=== PATIENT | male | born 1930 | race Caucasian/White ===

== ENCOUNTER 2016-07-04 10:08 | Inpatient (IN) | payer MEDICARE ==
[~2016-07-04] VITALS: Ht 167.6 cm; Wt 51.1 kg
[2016-07-04] VITALS (12 sets, daily range): BP systolic 93–146; BP diastolic 59–76; PULSE 61–95; RESP 18–24; TEMP 96–97.7; O2SAT 83–97
[~2016-07-04 10:08] MED LIST: AMLO10TA2 PO; CALC500C16 PO; CEFT500T3 PO; FLUT1INH INH; LEVO75TA3 PO; LOVA40TA PO; MEGE40SU PO; SPIRCAP INH; ZITH500T PO
[2016-07-04 10:33] LABS: AUTOMATED NEUTROPHIL # 9.6 TH/MM3 (1.8-7.7); BASOPHIL # 0.1 TH/MM3 (0-0.2); BASOPHIL % 1.1 % (0.0-2.0); EOSINOPHIL # 0.3 TH/MM3 (0-0.4); EOSINOPHIL % 2.2 % (0.0-4.0); HEMATOCRIT 45.1 % (39.0-51.0); LYMPH % 14.9 % (9.0-44.0); LYMPHOCYTE # 1.8 TH/MM3 (1.0-4.8); MEAN CELL VOLUME 83.7 FL (80.0-100.0); MEAN CORPUSCULAR HEMOGLOBIN 26.9 PG (27.0-34.0); MEAN CORPUSCULAR HGB CONC 32.1 % (32.0-36.0); MONO % 5.2 % (0.0-8.0); NEUT % 76.6 % (16.0-70.0); PLATELET COUNT 448 TH/MM3 (150-450); RED BLOOD COUNT 5.39 MIL/MM3 (4.50-5.90); RED CELL DISTRIBUTION WIDTH 18.1 % (11.6-17.2); WHITE BLOOD COUNT 12.4 TH/MM3 (4.0-11.0)
[2016-07-04] MEDS: RESP: ALBUTEROL 2.5 MG/IPRATROPIUM 0.5 MG NEB (SCH) INH ×2 (10:33→10:34)
[2016-07-04 10:41] LABS: HEMO FLAGS AUTO DIFF
[2016-07-04 10:42] LABS: CHLORIDE 108 MEQ/L (98-107); POTASSIUM 4.4 MEQ/L (3.5-5.1); SODIUM (NA) 142 MEQ/L (136-145)
--- NOTE | 2016-07-04 10:42 | PD ---
HPI Chief Complaint: Respiratory Symptoms Time Seen by Provider: 10:16 Travel History International Travel<30 days: No Contact w/Intl Traveler<30days: No Traveled to known affect area: No History of Present Illness HPI 85-year-old male with history of COPD, lung cancer, currently being treated with radiation, here for evaluation of shortness of breath and cough. Patient is on 5 L oxygen by nasal cannula at home. He reports that his symptoms of a progressively worsening over the last 2 weeks. Symptoms significantly worsen this morning. The patient is unable to exert himself because of shortness of breath. Shortness breath is also at rest. He is having some chest pain with coughing. Chart review shows that the patient had a pneumothorax in 2012. No fevers or chills. His chute puller is Dr. Bell. ON LICENSE OF [facility] Past Medical History Anxiety: No Depression: Yes Cancer: Yes (PROSTATE, LUNG) Cardiovascular Problems: Yes High Cholesterol: Yes Congestive Heart Failure: No COPD: Yes Coronary Artery Disease: No Diabetes: No Diminished Hearing: Yes Endocrine: Yes Gastrointestinal Disorders: No Genitourinary: No Hepatitis: No Hiatal Hernia: No Hypertension: Yes Immune Disorder: No Implanted Vascular Access Dvce: No Medical other: No Musculoskeletal: No Neurologic: No Psychiatric: Yes Reproductive: No Respiratory: Yes (COPD; LUNG CA) Radiation Therapy: Yes Sleep Apnea: No Thyroid Disease: Yes Tetanus Vaccination: Unknown Past Surgical History Abdominal Surgery: Yes (HERNIA) Cardiac Surgery: No Ear Surgery: No Endocrine Surgery: No Eye Surgery: No Genitourinary Surgery: No Gynecologic Surgery: No Neurologic Surgery: No Oral Surgery: No Thoracic Surgery: No Other Surgery: Yes Social History Alcohol Use: No Tobacco Use: No (FORMER) Substance Use: No Allergies-Medications (Allergen,Severity, Reaction): Coded Allergies: No Known Allergies (Unverified , 07/04/16) Reported Meds & Prescriptions Reported Meds & Active Scripts Active Calcium Carbonate (Antacid) 500 Mg Chew 1,000 Mg PO Q4H PRN Reported Symbicort Inh (Budesonide/Formoterol Fumarate) 160-4.5 Mcg/Act Aero 2 Puff INH Q12HR Spiriva Handihaler (Tiotropium Inh) 18 Mcg Cap 18 Mcg INH DAILY 1 capsule = 18 mcg Breo Ellipta Inh (Fluticasone/Vilanterol) 100-25 Mcg/Act Inh 1 Puff INH DAILY Use daily at the same time. Levothyroxine (Levothyroxine Sodium) 75 Mcg Tab 75 Mcg PO DAILY Lovastatin 40 Mg Tab 40 Mg PO HS Amlodipine (Amlodipine Besylate) 10 Mg Tab 10 Mg PO DAILY Review of Systems Except as stated in HPI: all other systems reviewed are Neg Physical Exam Narrative GENERAL: Well-developed, cachectic, comfortable, speaking full sentences, no acute distress. SKIN: Warm and dry. HEAD: Atraumatic. Normocephalic. EYES: Pupils equal and round. No scleral icterus. No injection or drainage. ENT: Mucous membranes pink and moist. NECK: Trachea midline. No JVD. No nuchal rigidity. CARDIOVASCULAR: Regular rate and rhythm. RESPIRATORY: No accessory muscle use. Diminished breath sounds bilaterally with coarse breath sounds bilaterally. Mild end expiratory wheezes bilaterally. GASTROINTESTINAL: Abdomen soft, non-tender, nondistended. MUSCULOSKELETAL: No obvious deformities. No clubbing. No cyanosis. No edema. NEUROLOGICAL: Awake and alert. No obvious cranial nerve deficits. Motor grossly within normal limits. Normal speech. PSYCHIATRIC: Appropriate mood and affect; insight and judgment normal. Data Data Last Documented VS Vital Signs Date Time Temp Pulse Resp B/P Pulse Ox O2 Delivery O2 Flow Rate FiO2 07/04/16 12:29 92 18 125/60 88 Nasal Cannula 5 Orders Complete Blood Count With Diff (07/04/16 10:18) Comprehensive Metabolic Panel (07/04/16 10:18) B-Type Natriuretic Peptide (07/04/16 10:18) D-Dimer (07/04/16 10:18) Act Partial Throm Time (Ptt) (07/04/16 10:18) Prothrombin Time / Inr (Pt) (07/04/16 10:18) Ckmb (Isoenzyme) Profile (07/04/16 10:18) Troponin I (07/04/16 10:18) Influenzae A/B Antigen (07/04/16 10:18) Blood Culture (07/04/16 10:18) Iv Access Insert/Monitor (07/04/16 10:18) Electrocardiogram (07/04/16 10:18) Ecg Monitoring (07/04/16 10:18) Oximetry (07/04/16 10:18) Oxygen Administration (07/04/16 10:18) Chest, Single Ap (07/04/16 10:18) Sodium Chloride 0.9% Flush (Ns Flush) (07/04/16 10:30) Albuterol-Ipratropium Neb (Duoneb Neb) (07/04/16 10:30) Lactic Acid (07/04/16 10:39) Ct Pulmonary Angiogram (07/04/16 11:13) Ceftriaxone Inj (Rocephin Inj) (07/04/16 11:15) Azithromycin Inj (Zithromax Inj) (07/04/16 11:15) Iohexol 350 Inj (Omnipaque 350 Inj) (07/04/16 12:17) Labs Laboratory Tests Test 07/04/16 07/04/16 10:20 10:25 White Blood Count 12.4 TH/MM3 Red Blood Count 5.39 MIL/MM3 Hemoglobin 14.5 GM/DL Hematocrit 45.1 % Mean Corpuscular Volume 83.7 FL Mean Corpuscular Hemoglobin 26.9 PG Mean Corpuscular Hemoglobin 32.1 % Concent Red Cell Distribution Width 18.1 % Platelet Count 448 TH/MM3 Mean Platelet Volume 7.8 FL Neutrophils (%) (Auto) 76.6 % Lymphocytes (%) (Auto) 14.9 % Monocytes (%) (Auto) 5.2 % Eosinophils (%) (Auto) 2.2 % Basophils (%) (Auto) 1.1 % Neutrophils # (Auto) 9.6 TH/MM3 Lymphocytes # (Auto) 1.8 TH/MM3 Monocytes # (Auto) 0.6 TH/MM3 Eosinophils # (Auto) 0.3 TH/MM3 Basophils # (Auto) 0.1 TH/MM3 CBC Comment AUTO DIFF Differential Comment AUTO DIFF CONFIRMED Prothrombin Time 10.7 SEC Prothromb Time International 1.0 RATIO Ratio Activated Partial 27.9 SEC Thromboplast Time D-Dimer Quantitative (PE/DVT) 4.29 MG/L FEU Sodium Level 142 MEQ/L Potassium Level 4.4 MEQ/L Chloride Level 108 MEQ/L Carbon Dioxide Level 24.1 MEQ/L Anion Gap 10 MEQ/L Blood Urea Nitrogen 25 MG/DL Creatinine 1.40 MG/DL Estimat Glomerular Filtration 48 ML/MIN Rate Random Glucose 89 MG/DL Calcium Level 8.6 MG/DL Total Bilirubin 0.5 MG/DL Aspartate Amino Transf 12 U/L (AST/SGOT) Alanine Aminotransferase 15 U/L (ALT/SGPT) Alkaline Phosphatase 97 U/L Total Creatine Kinase 32 U/L Troponin I LESS THAN 0.02 NG/ML B-Type Natriuretic Peptide 105 PG/ML Total Protein 7.9 GM/DL Albumin 3.2 GM/DL Lactic Acid Level 1.5 mmol/L [facility] Medical Decision Making Medical Screen Exam Complete: Yes Emergency Medical Condition: Yes Medical Record Reviewed: Yes Interpretation(s) EKG: Sinus, rate 87, left axis deviation, normal intervals, Q waves in septal leads, no acute ischemic abnormality. Differential Diagnosis COPD exacerbation, pneumonia, pneumothorax, PE, ACS, pulmonary edema, pleural effusion Narrative Course Initial vital signs showed a pulse ox of 82% on 5 L nasal cannula. Heart rate 90, blood pressure 122/66. CBC shows WBC 12.4, hemoglobin 14.5, hematocrit 45, platelets 448. CMP is markable for BUN 25, creatinine 1.4, GFR 48, otherwise unremarkable. BNP is 105. Cardiac enzymes are negative. Lactic acid is 1.5. D-dimer is 4.29 Chest x-ray: CONCLUSION: 1. Stable chest x-ray with small right pleural effusion with associated atelectasis or consolidation. 2. Stable patchy airspace consolidation in the left mid and lower lung zone. The patient was given antibiotics for pneumonia after chest x-ray reading. CT pulmonary angiogram ordered to further evaluate the lungs and to rule out PE. CT pulmonary angiogram: CONCLUSION: 1. No PE is identified. 2. There are findings diagnostic of aspiration with fluid in the right lower lobe bronchus and right lower lobe segmental bronchi with right lower lobe airspace consolidation in that distribution. 3. Small bilateral pleural effusions, right larger than left. 4. There is an 11 mm left lower lobe pulmonary nodule and there are nodular opacities in the left midlung adjacent to the major fissure. I do not have any prior CT that visualizes this area. Suggest correlation with prior imaging studies that could confirm longer-term stability or assess for change. If none are available I would suggest followup chest CT in 3 months once the acute process resolves. The patient was also given a dose of clindamycin after CT pulmonary angiogram results reported. The patient was made aware of all findings. He was given 3 DuoNeb treatments. He is currently sitting up, O2 saturation 92% on 5 L nasal cannula, no apparent respiratory distress, speaking full sentences. He will be admitted for further treatment and evaluation of aspiration pneumonia, hypoxia, dyspnea. Case discussed with [facility] hospitalist Dr. Greenwood who will admit the patient to his service. Diagnosis Primary Impression: Aspiration pneumonia Qualified Code: J69.0 - Aspiration pneumonia of right lower lobe, unspecified aspiration pneumonia type Additional Impressions: Hypoxia Dyspnea Qualified Code: R06.09 - Dyspnea on exertion Admitting Information Admitting Physician Requests: Admit Ed Abernathy MD Jul 04, 2016 10:42
[2016-07-04 10:45] LABS: ANION GAP 10 MEQ/L (5-15); BICARBONATE 24.1 MEQ/L (21.0-32.0); BLOOD UREA NITROGEN 25 MG/DL (7-18)
[2016-07-04 10:49] LABS: ALT (GPT) 15 U/L (12-78); AST (GOT) 12 U/L (15-37); GLOMERULAR FILTRATION RATE 48 ML/MIN (>89)
[2016-07-04 10:50] LABS: TOTAL BILIRUBIN ADULT 0.5 MG/DL (0.2-1.0)
[2016-07-04 10:51] LABS: ALKALINE PHOSPHATASE 97 U/L (45-117)
[2016-07-04 10:52] LABS: CREATINE KINASE 32 U/L (39-308)
[2016-07-04] MEDS ORDERED: SYMB160A INH (10:55)
--- NOTE | 2016-07-04 10:59 | RADHPO ---
EXAM DATE/TIME: 07/04/2016 10:32 [facility] COMPARISON: CHEST SINGLE AP, April 23, 2016, 5:48. INDICATIONS : Short of breath and difficulty breathing for 2 weeks. MEDICAL HISTORY : Carcinoma, lung. Chronic obstructive pulmonary disease SURGICAL HISTORY : None. ENCOUNTER: Initial ACUITY: 2 weeks PAIN SCORE: 2/10 LOCATION: Bilateral chest FINDINGS: 2 AP views of the chest demonstrate a normal-sized cardiac silhouette with calcification of the aorta . Lungs are hyperexpanded. There is a right basilar pleural-parenchymal opacity and patchy airspace c onsolidation in the left mid and lower lung zone. No pneumothorax is visualized. Bones and soft tissu es demonstrate no acute finding. CONCLUSION: 1. Stable chest x-ray with small right pleural effusion with associated atelectasis or consolidation. 2. Stable patchy airspace consolidation in the left mid and lower lung zone. Charly Knox MD on July 04, 2016 at 10:56 Board Certified Radiologist. This report was verified electronically.
[2016-07-04 11:01] LABS: APTT (PATIENT) 27.9 SEC (24.3-30.1); PROTHROMBIN TIME - PATIENT 10.7 SEC (9.8-11.6)
[2016-07-04] MEDS ORDERED: cefTRIAXone INJ 1,000 MG in SODIUM CHLORIDE 0.9% INJ 100 ML IV ONE (11:15)
[2016-07-04] MEDS ORDERED: AZITHROMYCIN INJ 500 MG in SODIUM CHLOR 0.9% 250 ML INJ 250 ML IV ONE (11:15)
[2016-07-04 11:39] LABS: SCAN/DIFF AUTO DIFF CONFIRMED
[2016-07-04] MEDS ORDERED: IOHEXOL 350 MG/ML 10 ML VIAL (for RAD DIAG) IV ONE (12:17)
--- NOTE | 2016-07-04 12:47 | RADHPO ---
EXAM DATE/TIME: 07/04/2016 12:04 [facility] COMPARISON: CT NEEDLE BIOPSY LUNG, LEFT, June 15, 2012, 9:40. INDICATIONS : Short of breath. Hypoxic. Cough. IV CONTRAST: 75 cc Omnipaque 350 (iohexol) IV RADIATION DOSE: 7.86 CTDIvol (mGy) MEDICAL HISTORY : Carcinoma, lung. Carcinoma, prostate. Chronic obstructive pulmonary disease.Hypertension. SURGICAL HISTORY : None. ENCOUNTER: Initial ACUITY: 1 day PAIN SCALE: 6/10 LOCATION: Bilateral chest TECHNIQUE: Volumetric scanning of the chest was performed using a pulmonary embolism protocol MIP images were re constructed. Using automated exposure control and adjustment of the mA and/or kV according to patien t size, radiation dose was kept as low as reasonably achievable to obtain optimal diagnostic quality images. FINDINGS: PULMONARY ARTERIES: No filling defects are seen in the pulmonary arteries through the segmental level. LUNGS: There is severe centrilobular and paraseptal emphysema. There is consolidation in the medial aspect o f the left upper lobe that corresponds with the prior biopsy-proven malignancy. It is smaller than wh at was present on the 2013 examination. There is airspace consolidation in the right lower lobe with fluid material within the right lower lobe bronchus and segmental bronchi. Small bilateral pleural ef fusions are present, right slightly larger than left. In the left lower lobe there is an ovoid nodule measuring 11 mm (image 65). In the left midlung zone and both the upper and lower lobe adjacent to t he fissure there are nodular opacities measuring approximately 12 mm each. PLEURAE: There are small bilateral pleural effusions, right slightly larger than left. There is a single calci fied pleural plaque on the left in the anterior mid hemithorax. MEDIASTINUM: The heart and great vessels demonstrate no acute finding. There is coronary artery calcification and severe atherosclerotic disease of aorta. 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 No lymphadenopathy is visualized. MUSCULOSKELETAL: There are degenerative changes of the thoracic spine. MISCELLANEOUS: The visualized upper abdominal organs demonstrate no acute abnormality. CONCLUSION: 1. No PE is identified. 2. There are findings diagnostic of aspiration with fluid in the right lower lobe bronchus and right lower lobe segmental bronchi with right lower lobe airspace consolidation in that distribution. 3. Small bilateral pleural effusions, right larger than left. 4. There is an 11 mm left lower lobe pulmonary nodule and there are nodular opacities in the left mid lung adjacent to the major fissure. I do not have any prior CT that visualizes this area. Suggest cor relation with prior imaging studies that could confirm longer-term stability or assess for change. I f none are available I would suggest followup chest CT in 3 months once the acute process resolves. Charly Knox MD on July 04, 2016 at 12:38 Board Certified Radiologist. This report was verified electronically.
[2016-07-04] MEDS ORDERED: RESP: ALBUTEROL 2.5 MG/IPRATROPIUM 0.5 MG NEB (SCH) NEB (16:00)
[2016-07-04] MEDS ORDERED: LEVOFLOXACIN 500 MG PREMIX INJ 100 ML IV ONE (17:00)
[2016-07-04] MEDS: CLINDAMYCIN INJ 600 MG in SODIUM CHLORIDE 0.9% INJ 100 ML IV SCH (17:38)
[2016-07-04] MEDS: methylPREDNISolone SOD SUCC 125 MG/2 ML VIAL IV PUSH SCH (17:39)
[2016-07-04 18:35] LABS: BLOOD GAS BASE EXCESS -2.6 mmol/L (-2-2); BLOOD GAS CARBOXYHEMOGLOBIN 2.5 % (0-4); BLOOD GAS HCO3 21 mmol/L (22-26); BLOOD GAS METHEMOGLOBIN 0.9 % (0-2); BLOOD GAS O2 HGB SATURATION 80 % (90-100); BLOOD GAS OXYGEN CONTENT 14.4 Vol % (12.0-20.0); BLOOD GAS PCO2 31 mmHG (38-42); BLOOD GAS PO2 49 mmHG (61-120); BLOOD GAS TOTAL HGB 12.8 G/DL (12.0-16.0); CRITICAL VALUE YES; DRAW SITE RT RADIAL; LITER FLOW 6 L/M; NUMBER OF ARTERIAL PUNCTURES 1; OXYGEN DEVICE NASAL CANNULA; STAT NO; TEMP CORR TO 98.6; ULNAR PULSE PRESENT
[2016-07-04] MEDS: FLUTICASONE 100 MCG/VILANTEROL 25 MCG INHALER INH SCH (19:15)
[2016-07-04] MEDS: RESP: ALBUTEROL 2.5 MG/IPRATROPIUM 0.5 MG NEB (SCH) NEB (19:30)
[2016-07-04] MEDS ORDERED: BUDESONIDE-FORMOTEROL 160/4.5 MCG INHALER INH SCH (21:00)
[2016-07-04] MEDS: HEPARIN SODIUM - SQ 10,000 UNITS/ML VIAL SQ SCH (21:26)
[2016-07-04] MEDS: PRAVASTATIN SOD 40 MG TAB PO SCH (21:28)
--- NOTE | 2016-07-04 23:29 | MH ---
cc: DENNIS MALIN MD DATE OF ADMISSION 07/04/2016 CHIEF COMPLAINT Shortness of breath HISTORY OF PRESENT ILLNESS This is a 85-year-old male with past medical-surgical history significant for depression, prostate cancer, hyperlipidemia, history of chronic obstructive pulmonary disease, lung cancer, hypertension, history of hernia who came to the ER at [facility], has history of lung cancer currently being treated with radiation, here for evaluation of shortness of breath and cough. The patient is on 5 liters oxygen by nasal cannula at home. He is stating that his symptoms are progressively getting worse over the last one week, symptom slightly worsened this morning and he decided to come to the [facility]. He is unable to exert himself because of the shortness of breath and he is also feeling shortness of breath even at rest. He has a history of a pneumothorax in 2012. Other than that nothing significant. PAST MEDICAL HISTORY/PAST SURGICAL HISTORY As dictated above. SOCIAL HISTORY He is ex-smoker, denies any alcohol or drug abuse. Lives at home. 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 FAMILY HISTORY Nothing significant. ALLERGIES NO KNOWN DRUG ALLERGIES. MEDICATIONS 1. Calcium carbonate 1,000 mg every 4-hour. 2. Symbicort inhaler 160/4.5 mcg 2 puffs inhalation q.12 h 3. Spiriva HandiHaler 18 mcg inhalation daily. 4. ____ 100/25 1 puff ablation daily. 5. Levothyroxine 75 mcg by mouth daily 6. Lovastatin 40 mg p.o. daily 7. Amlodipine 10 mg p.o. daily. REVIEW OF SYSTEMS Positive for cough, congestion, shortness of breath and feeling weak and tired and exhausted. All other review of systems are negative. PHYSICAL EXAMINATION GENERAL: This is an 85-year male laying on the bed not in acute distress. VITAL SIGNS: Temperature 97.4, heart rate 63, respirations 20, blood pressure 146/72, O2 saturation 96% at 5 liters nasal cannula. HEENT: Normocephalic, atraumatic. EOMI. Pupils are equal, round, reactive to light. Oral mucosa moist. NECK: Supple. No visible thyromegaly. Trachea central. CARDIOVASCULAR: Regular rate and rhythm. LUNGS: Bilateral crackles and wheezing, decreased air entry bilaterally. ABDOMEN: Soft, nontender. Bowel sounds audible. EXTREMITIES: No cyanosis or clubbing. Full range of motion of all extremities. NEUROLOGIC: Awake, alert, oriented x4. No focal deficit. SKIN: Warm and dry. PSYCHIATRIC: The patient is cooperative. Mood and affect are normal. LABORATORY DATA CBC showed WBC count 12.4 high, hemoglobin/hematocrit normal. MCH is 26.9 low, RDW 18.1 high, neutrophils 76.6 high. BMP totally unremarkable except for chloride 108 high, BUN 25 high, creatinine 1.40 high. Glucose 89. LFTs are normal. Total creatine kinase 32. Troponin I is less than 0.02, BNP 105 high, albumin 3.2 low. PT 10.7, INR 1.0, APTT 27.9, D-dimer is 4.29, ABG done showed pH of 7.45 with pCO2 31 with pO2 49, bicarb 21 low. Blood cultures x2 done negative so far. Influenza A and B negative. IMAGING STUDIES Chest x-ray done shows stable chest x-ray with small right pleural effusion with associated atelectasis or consolidation, stable patchy airspace consolidation in the left mid and lower lung zone. CT chest was done shows no PE is identified. There is a finding diagnostic Of aspiration with fluid in the right lower lobe bronchus and right lower lobe segmental bronchi with right lower lobe air space consolidation in that distribution small bilateral pleural effusion, right larger than left. There is 11 mm left lower lobe pulmonary nodule and there is a nodular opacity in the left mid lung adjacent to the major fissure. We do not have a prior CT that ___ this area. Suggest correlation with prior imaging studies that could confirm long-term stability or assess changes. If none are available, radiology should suggest follow up CT chest in 3 months once acute process is resolved. ASSESSMENT AND PLAN 1. This is an 85-year-old male who came to the ER diagnosed with well known shortness of breath secondary to pneumonia/COPD exacerbation. The patient is on Levaquin 500 mg IV daily and also DuoNeb nebulization and Solu-Medrol 60 mg IV q. 12-hour and also clindamycin IV q. 8-hour. 2. Most likely aspiration pneumonia. The patient is on clindamycin and Levaquin. Pulmonology on the case. Further recommendation per pulmonary. 3. COPD exacerbation. The patient is on DuoNeb nebulization, Solu-Medrol and antibiotics. Continue that. 4. History of hyperlipidemia. Continue pravastatin 40 mg at bedtime. 5. History of hypothyroidism, continue levothyroxine 75 mcg p.o. daily. 6. History of hypertension. Continue with blood pressure medicine. We will monitor blood pressure. 7. DVT prophylaxis. The patient is on heparin 5000 units subcutaneous q.12 h 8. DVT prophylaxis, Protonix 40 mA daily. The patient also on Potassium carbonate. 9. Renal insufficiency. We will monitor BUN and creatinine. 10. Leukocytosis secondary to pneumonia. We are going to manage the patient on daily basis and make recommendation on daily basis. Dennis Malin MD EA/ /8:02 PM /11:00 PM
[2016-07-05] VITALS (21 sets, daily range): BP systolic 102–156; BP diastolic 9–73; PULSE 84–108; RESP 18–36; TEMP 97.6–98.4; O2SAT 82–100
[2016-07-05] MEDS: CLINDAMYCIN INJ 600 MG in SODIUM CHLORIDE 0.9% INJ 100 ML IV SCH ×4 (00:23→23:42)
[2016-07-05 05:54] LABS: AUTOMATED NEUTROPHIL # 6.9 TH/MM3 (1.8-7.7); BASOPHIL % 0.5 % (0.0-2.0); EOSINOPHIL # 0.3 TH/MM3 (0-0.4); EOSINOPHIL % 2.8 % (0.0-4.0); HEMO FLAGS DIFF FINAL; LYMPH % 15.8 % (9.0-44.0); LYMPHOCYTE # 1.5 TH/MM3 (1.0-4.8); MEAN CELL VOLUME 82.7 FL (80.0-100.0); MEAN CORPUSCULAR HEMOGLOBIN 27.3 PG (27.0-34.0); MONO % 7.5 % (0.0-8.0); NEUT % 73.4 % (16.0-70.0); PLATELET COUNT 346 TH/MM3 (150-450); RED BLOOD COUNT 4.36 MIL/MM3 (4.50-5.90); RED CELL DISTRIBUTION WIDTH 17.7 % (11.6-17.2); WHITE BLOOD COUNT 9.4 TH/MM3 (4.0-11.0)
[2016-07-05] MEDS: methylPREDNISolone SOD SUCC 125 MG/2 ML VIAL IV PUSH SCH ×2 (06:02→18:12)
[2016-07-05] MEDS: LEVOTHYROXINE SODIUM 75 MCG TAB PO SCH (06:02)
[2016-07-05 06:03] LABS: CHLORIDE 110 MEQ/L (98-107); POTASSIUM 4.4 MEQ/L (3.5-5.1); SODIUM (NA) 144 MEQ/L (136-145)
[2016-07-05 06:09] LABS: ANION GAP 9 MEQ/L (5-15); BICARBONATE 25.3 MEQ/L (21.0-32.0)
[2016-07-05 06:10] LABS: BLOOD UREA NITROGEN 30 MG/DL (7-18)
[2016-07-05 06:12] LABS: ALT (GPT) 11 U/L (12-78); AST (GOT) 12 U/L (15-37); GLOMERULAR FILTRATION RATE 45 ML/MIN (>89)
[2016-07-05 06:14] LABS: TOTAL BILIRUBIN ADULT 0.3 MG/DL (0.2-1.0)
[2016-07-05 06:15] LABS: ALKALINE PHOSPHATASE 76 U/L (45-117)
--- NOTE | 2016-07-05 06:25 | MB ---
cc: Alexia ROJAS M.D. DATE OF CONSULTATION 07/04/2016 HISTORY Mr. Ro is an 85-year-old white male with a history of severe COPD, smoked until 2009 after 50 pack-years. In 2012 he developed a lung cancer on the left, was not a surgical candidate so had radiation therapy and to date followup with Dr. Pablo. There has been no evidence of recurrence. He was hospitalized here about two months ago with pneumonia and really never recovered he said. He is chronically short of breath. He says his inhalers have been making him worse and recently a nebulizer was ordered as an alternative. He uses four to five liters of oxygen at home continuously but is on no steroid dose. He uses Breo and Spiriva but again he says he feels that those are making him worse. He came in today because he was exhausted and more short of breath. He has had no chest pain or hemoptysis, no purulent sputum but he coughs continuously. The sputum he produces tends to be clear. CT scan was done which reveals no evidence of recurrent malignancy. No thromboembolic disease, but he does have an extensive right lower lobe infiltrate and a small pleural effusion. He has had infiltrates at the right base before and aspiration is suspected. PAST MEDICAL HISTORY Other than that noted above, he has had - 1. Carotid endarterectomy. 2. Hypertension. 3. He has had cancer of the prostate treated in the past. 4. He is hypothyroid. No prior history of myocardial infarction or stroke. He is not diabetic. ALLERGIES None known. SOCIAL HISTORY Rarely drinks alcohol. Smoking as noted, at least 50 pack-years; quit about seven years ago. Originally from [place]. 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 FAMILY HISTORY Parents both in their 80s of natural causes. He has two children in good health. , living with his . REVIEW OF SYSTEMS Other than that noted above, no anginal chest pain. No chronic edema. No orthopnea or PND. No lightheadedness. Not aware of fever. Not complaining of chronic reflux problems or difficulty swallowing that would suggest aspiration. PHYSICAL EXAMINATION GENERAL: An elderly white male, comfortable at rest. VITAL SIGNS: Pulse is 90, respirations 18, sat on 5 liters is 88-92%, his blood pressure is 150/60. No temperatures is yet recorded. HEAD AND NECK: Sclerae anicteric. Neck veins are flat. Mucous membranes are moist. CHEST: Mildly congested, right base greater than left. Prolonged expiration but no audible wheezing. CARDIOVASCULAR: Regular rhythm. No harsh murmur. No audible S3. EXTREMITIES: No peripheral edema or cyanosis. LABORATORY DATA White count is 12,000, hemoglobin is 14. BUN is 25 with creatinine of 1.4. BNP is 100. PT/INR is normal. DISCUSSION Mr. Ro has severe COPD based on his history and a CT scan. He also has a right lower lobe infiltrate fairly extensive posterior basilar and it certainly could be aspiration. Since the inhaler seemed to be making him worse, we will use aerosolized bronchodilators which may be more helpful. He will need a course of antibiotics for probable aspiration, try to collect a sputum for culture, IV corticosteroids as well and try to ambulate him as it sounds like he has a fairly sedentary lifestyle. He also has small bilateral pleural effusions. I will do an echo to be sure he does not have any LV dysfunction. Further diagnostic and/or therapeutic intervention will depend on his ongoing clinical course and response to therapy. Thank you for asking me to see him with you in consultation. R. MD YVONNE Schroeder/RADAMES /5:40 PM /6:14 AM
[2016-07-05] MEDS: RESP: ALBUTEROL 2.5 MG/IPRATROPIUM 0.5 MG NEB (SCH) NEB ×3 (07:27→19:25)
--- NOTE | 2016-07-05 08:06 | HHI.PR ---
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 Review of Systems Constitutional Constitutional: Fatigue, Weakness Pulmonary Respiratory: Coughing, Shortness of Breath, Wheezing Vitals/Results Intake & Output 07/04/16 07/04/16 07/05/16 15:00 23:00 07:00 Intake Total 350 ml 200 ml 300 ml Output Total 750 ml Balance 350 ml 200 ml -450 ml Intake Oral 200 ml IV Total 350 ml 200 ml 100 ml Output Urine Total 750 ml # Voids 3 Vital Signs Vital Signs Date Time Temp Pulse Resp B/P Pulse Ox O2 Delivery O2 Flow Rate FiO2 07/05/16 07:31 94 Simple Mask 7.00 07/05/16 04:00 98.4 86 20 151/65 92 07/05/16 00:00 98.4 89 20 120/60 92 07/04/16 23:05 93 Simple Mask 7.00 07/04/16 22:50 95 Simple Mask 10.00 07/04/16 22:00 97.7 92 21 115/72 85 07/04/16 20:30 96.0 95 21 93/63 91 07/04/16 19:30 88 Nasal Cannula 6.00 07/04/16 16:00 97.4 63 20 146/72 96 07/04/16 14:01 90 18 115/59 88 Nasal Cannula 5 07/04/16 12:29 92 18 125/60 88 Nasal Cannula 5 07/04/16 12:00 97.2 61 20 139/76 97 07/04/16 11:31 90 18 122/66 88 Nasal Cannula 5 07/04/16 10:56 91 Nasal Cannula 5.00 07/04/16 10:27 24 87 Nasal Cannula 5 07/04/16 10:22 24 83 Nasal Cannula 5 07/04/16 10:21 82 Nasal Cannula 5 CBC/BMP: 07/05/16 0450 07/05/16 0450 Lab Results Laboratory Tests Test 07/04/16 07/04/16 07/04/16 07/05/16 10:20 10:25 18:23 04:50 White Blood Count 12.4 TH/MM3 9.4 TH/MM3 Red Blood Count 5.39 MIL/MM3 4.36 MIL/MM3 Hemoglobin 14.5 GM/DL 11.9 GM/DL Hematocrit 45.1 % 36.0 % Mean Corpuscular Volume 83.7 FL 82.7 FL Mean Corpuscular Hemoglobin 26.9 PG 27.3 PG Mean Corpuscular Hemoglobin 32.1 % 33.0 % Concent Red Cell Distribution Width 18.1 % 17.7 % Platelet Count 448 TH/MM3 346 TH/MM3 Mean Platelet Volume 7.8 FL 7.9 FL Neutrophils (%) (Auto) 76.6 % 73.4 % Lymphocytes (%) (Auto) 14.9 % 15.8 % Monocytes (%) (Auto) 5.2 % 7.5 % Eosinophils (%) (Auto) 2.2 % 2.8 % Basophils (%) (Auto) 1.1 % 0.5 % Neutrophils # (Auto) 9.6 TH/MM3 6.9 TH/MM3 Lymphocytes # (Auto) 1.8 TH/MM3 1.5 TH/MM3 Monocytes # (Auto) 0.6 TH/MM3 0.7 TH/MM3 Eosinophils # (Auto) 0.3 TH/MM3 0.3 TH/MM3 Basophils # (Auto) 0.1 TH/MM3 0.0 TH/MM3 CBC Comment AUTO DIFF DIFF FINAL Differential Comment AUTO DIFF CONFIRMED Prothrombin Time 10.7 SEC Prothromb Time International 1.0 RATIO Ratio Activated Partial 27.9 SEC Thromboplast Time D-Dimer Quantitative (PE/DVT) 4.29 MG/L FEU Sodium Level 142 MEQ/L 144 MEQ/L Potassium Level 4.4 MEQ/L 4.4 MEQ/L Chloride Level 108 MEQ/L 110 MEQ/L Carbon Dioxide Level 24.1 MEQ/L 25.3 MEQ/L Anion Gap 10 MEQ/L 9 MEQ/L Blood Urea Nitrogen 25 MG/DL 30 MG/DL Creatinine 1.40 MG/DL 1.50 MG/DL Estimat Glomerular Filtration 48 ML/MIN 45 ML/MIN Rate Random Glucose 89 MG/DL 76 MG/DL Calcium Level 8.6 MG/DL 8.2 MG/DL Total Bilirubin 0.5 MG/DL 0.3 MG/DL Aspartate Amino Transf 12 U/L 12 U/L (AST/SGOT) Alanine Aminotransferase 15 U/L 11 U/L (ALT/SGPT) Alkaline Phosphatase 97 U/L 76 U/L Total Creatine Kinase 32 U/L Troponin I LESS THAN 0.02 NG/ML B-Type Natriuretic Peptide 105 PG/ML Total Protein 7.9 GM/DL 6.6 GM/DL Albumin 3.2 GM/DL 2.7 GM/DL Lactic Acid Level 1.5 mmol/L Blood Gas Puncture Site RT RADIAL Blood Gas Patient Temperature 98.6 Blood Gas HCO3 21 mmol/L Blood Gas Base Excess -2.6 mmol/L Blood Gas Oxygen Saturation 80 % Arterial Blood pH 7.45 Arterial Blood Partial 31 mmHG Pressure CO2 Arterial Blood Partial 49 mmHG Pressure O2 Arterial Blood Oxygen Content 14.4 Vol % Arterial Blood 2.5 % Carboxyhemoglobin Arterial Blood Methemoglobin 0.9 % Blood Gas Hemoglobin 12.8 G/DL Oxygen Delivery Device NASAL CANNULA Blood Gas Liter Flow 6 L/M Microbiology Microbiology 07/04/16 Aerobic Blood Culture, Received Pending 07/04/16 Anaerobic Blood Culture, Received Pending 07/04/16 Aerobic Blood Culture, Received Pending 07/04/16 Anaerobic Blood Culture, Received Pending 07/04/16 Influenza Types A,B Antigen (LIBORIO) - Final, Complete NEGATIVE FOR FLU A AND B ANTIGEN.... Physical Exam General General Appearance: Comfortable Eyes Eye Exam: Pupils Equal, Pupils Reactive, Sclera White, Extraocular Movement Intact Throat Throat Exam: Oral Mucosa [place] & Moist, Oral Pharynx Normal Neck Neck Exam: Neck Supple, Trachea Midline Pulmonary Resp Remarks Bilateral wheezing and decreased air entry. Gastrointestinal/Abdomen GI Exam: Soft, Non-Tender, Bowel Sounds Present Musculoskeletal MS Exam: Normal Tone Integumentary Skin Exam: Clear, Warm, Dry, Intact, Normal Turgor Extremeties Extremities Exam: No Edema Neurologic Neuro Exam: Alert, Awake, Oriented, Speech Clear, Moving All Extremities PUD Prophylasis PUD Prophylaxis: Protonix Assessment/Plan Assessment/Plan ASSESSMENT AND PLAN 1. This is an 85-year-old male who came to the ER diagnosed with well known shortness of breath secondary to pneumonia/COPD exacerbation. The patient is on Levaquin 500 mg IV daily and also DuoNeb nebulization and Solu-Medrol 60 mg IV q. 12-hour and also clindamycin IV q. 8-hour. 2. Most likely aspiration pneumonia. The patient is on clindamycin and Levaquin. Pulmonology on the case.. Further recommendation per pulmonary. 3. COPD exacerbation. The patient is on DuoNeb nebulization, Solu-Medrol and antibiotics. Continue that. 4. History of hyperlipidemia. Continue pravastatin 40 mg at bedtime. 5. History of hypothyroidism, continue levothyroxine 75 mcg p.o. daily. 6. History of hypertension. Continue with blood pressure medicine. We will monitor blood pressure. 7. DVT prophylaxis. The patient is on heparin 5000 units subcutaneous q.12 h 8. DVT prophylaxis, Protonix 40 mA daily. The patient also on Potassium carbonate. 9. Renal insufficiency. We will monitor BUN and creatinine. 10. Leukocytosis secondary to pneumonia. We are going to manage the patient on daily basis and make recommendation on daily basis. Discussed Condition with: Patient Dennis Carver MD Jul 05, 2016 08:06
[2016-07-05] MEDS: FLUTICASONE 100 MCG/VILANTEROL 25 MCG INHALER INH SCH (08:30)
[2016-07-05] MEDS: HEPARIN SODIUM - SQ 10,000 UNITS/ML VIAL SQ SCH ×2 (08:31→21:13)
[2016-07-05] MEDS ORDERED: TIOTROPIUM BROMIDE 18 MCG INH INH SCH (09:00)
--- NOTE | 2016-07-05 14:22 | EC ---
Study Study Date:07/05/2016 STUDY CONCLUSIONS SUMMARY - Left ventricle: The cavity size was normal. Wall thickness was normal. Systolic function was normal. The estimated ejection fraction was 65%. Wall motion was normal; there were no regional wall motion abnormalities. - Mitral valve: Mild regurgitation. - Right ventricle: The cavity size was mildly dilated. Wall thickness was normal. - Tricuspid valve: Mild regurgitation. If LV function is below 40, please consider prescribing an ACEI or ARB or document rationale for non-use. PROCEDURE DATA STUDY STATUS: Elective. Procedure: Transthoracic echocardiography. Image quality was good. Scanning was performed from the parasternal, apical, and subcostal acoustic windows. Study completion: The patient tolerated the procedure well. Transthoracic echocardiography. M-mode, complete 2D, complete spectral Doppler, and color Doppler. Patient status: Inpatient. CARDIAC ANATOMY LEFT VENTRICLE: The cavity size was normal. Wall thickness was normal. Systolic function was normal. The estimated ejection fraction was 65%. Wall motion was normal; there were no regional wall motion abnormalities. AORTIC VALVE: Trileaflet; mildly thickened, mildly calcified leaflets. Doppler: Transvalvular velocity was within the normal range. There was no stenosis. No regurgitation. AORTA: Aortic root: The aortic root was normal in size. MITRAL VALVE: Structurally normal valve. Doppler: Transvalvular velocity was within the normal range. There was no evidence for stenosis. Mild regurgitation. LEFT ATRIUM: The atrium was normal in size. RIGHT VENTRICLE: The cavity size was mildly dilated. Wall thickness was normal. PULMONIC VALVE: Doppler: Transvalvular velocity was within the normal range. There was no evidence for stenosis. No regurgitation. TRICUSPID VALVE: Structurally normal valve. Doppler: Transvalvular velocity was within the normal range. Mild regurgitation. PULMONARY ARTERY: The main pulmonary artery was normal-sized. Systolic pressure was within the normal range. RIGHT ATRIUM: The atrium was normal in size. PERICARDIUM: There was no pericardial effusion. SYSTEMIC VEINS: Inferior vena cava: The vessel was normal in size. BASIC MEASUREMENTS ADULT NORMAL Left ventricle LV internal dimension, ED, chordal level, *35.4 mm 43-52 PLAX LV internal dimension, ES, chordal level, 26 mm 23-38 PLAX Fractional shortening, chordal level, PLAX *27 % >29 LV posterior wall thickness, ED 11.3 mm IVS/LVPW ratio, ED 1.04 <1.3 Ventricular septum Septal thickness, ED 11.7 mm Aortic valve Leaflet separation *13 mm 15-26 Right ventricle RV internal dimension, ED, PLAX 32.1 mm 19-38 BASIC MEASUREMENTS ADULT NORMAL Aortic valve Leaflet separation *13 mm 15-26 Aorta Root diameter, ED 35 mm 20-37 Left atrium Anterior-posterior dimension, ES 28 mm 19-40 LA/aortic root ratio 0.8 LEGEND: Mean values are shown as u=mean value. Asterisk (*) bliss values outside specified normal range. Prepared and signed by Elizabeth Zambrano [id number]
[2016-07-05] MEDS: LEVOFLOXACIN/DEXTROSE 250 MG/50 ML IV SCH (16:56)
--- NOTE | 2016-07-05 16:58 | EKG ---
Date Performed: 07/04/2016 Time Performed: 10:19:54 PTAGE: 85 years EKG: Sinus rhythm Left axis deviation Possible septal infarct - age undetermined Abnormal ECG PREVIOUS TRACING : 04/19/2016 11.24 Compared to prior tracing no significant change DOCTOR: Osmin Green Interpretating Date/Time 07/05/2016 16:56:56
[2016-07-05] MEDS ORDERED: CHLORHEXIDINE GLUCONATE 2 % 1 PACK (2 CLOTHS)(extra cloths) TOP PRN (17:15)
[2016-07-05] MEDS: CALCIUM CARBONATE 500 MG CHEWABLE TAB PO PRN (19:43)
[2016-07-05] MEDS: PRAVASTATIN SOD 40 MG TAB PO SCH (21:13)
[2016-07-06] VITALS (30 sets, daily range): BP systolic 117–160; BP diastolic 54–82; PULSE 84–100; RESP 18–36; TEMP 97.9–98.7; O2SAT 83–99
[2016-07-06] MEDS: CALCIUM CARBONATE 500 MG CHEWABLE TAB PO PRN (01:45)
[2016-07-06] MEDS: CHLORHEXIDINE GLUCONATE 2 % 1 PACK (2 CLOTHS)(taper/protocol) TOP SCH (03:27)
[2016-07-06] MEDS: LEVOTHYROXINE SODIUM 75 MCG TAB PO SCH (05:21)
[2016-07-06] MEDS: SODIUM CHLORIDE 0.9% FLUSH 5 ML FLUSH IVF PRN ×3 (05:21→23:36)
[2016-07-06] MEDS: methylPREDNISolone SOD SUCC 125 MG/2 ML VIAL IV PUSH SCH ×2 (05:21→17:42)
[2016-07-06] MEDS: RESP: ALBUTEROL 2.5 MG/IPRATROPIUM 0.5 MG NEB (SCH) NEB ×3 (07:42→19:28)
[2016-07-06] MEDS: CLINDAMYCIN INJ 600 MG in SODIUM CHLORIDE 0.9% INJ 100 ML IV SCH ×3 (09:37→23:35)
[2016-07-06] MEDS: HEPARIN SODIUM - SQ 10,000 UNITS/ML VIAL SQ SCH ×2 (09:41→20:45)
--- NOTE | 2016-07-06 10:48 | HHI.PR ---
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 wants Symbicort. checking swallow evaluation. Review of Systems Constitutional Constitutional: Fatigue, Weakness Pulmonary Respiratory: Coughing, Shortness of Breath, Wheezing Vitals/Results Intake & Output 07/05/16 07/05/16 07/06/16 15:00 23:00 07:00 Intake Total 1165 ml 220 ml Output Total 1000 ml 400 ml Balance 165 ml -180 ml Intake Oral 960 ml 120 ml IV Total 205 ml 100 ml Output Urine Total 1000 ml 400 ml Stool Total 0 ml # Bowel Movements 0 0 Vital Signs Vital Signs Date Time Temp Pulse Resp B/P Pulse Ox O2 Delivery O2 Flow Rate FiO2 07/06/16 07:44 92 Simple Mask 6.00 07/06/16 06:00 94 22 151/73 96 07/06/16 05:00 90 18 147/72 97 07/06/16 04:00 98.1 94 22 144/62 93 07/06/16 02:00 92 24 144/67 96 07/06/16 01:00 88 18 144/72 97 07/06/16 01:00 97 Simple Mask 07/06/16 00:00 98.6 92 18 143/67 99 07/05/16 23:00 91 07/05/16 23:00 92 18 135/69 100 07/05/16 22:00 98 Partial Rebreather 11.00 07/05/16 22:00 94 31 135/67 99 07/05/16 21:18 98 21 136/66 84 07/05/16 21:00 98 24 129/65 93 07/05/16 21:00 99 Partial Non-Rebreather 07/05/16 20:00 97.8 108 36 154/67 84 07/05/16 20:00 86 Nasal Cannula 5.00 07/05/16 19:25 92 Nasal Cannula 5.00 07/05/16 19:00 96 07/05/16 19:00 96 27 135/59 94 07/05/16 18:00 94 24 116/56 92 07/05/16 18:00 94 07/05/16 17:00 98 25 119/56 92 07/05/16 17:00 98 07/05/16 16:00 94 07/05/16 16:00 98.3 94 22 113/56 90 07/05/16 15:00 98 07/05/16 15:00 98 25 116/63 88 07/05/16 14:00 96 07/05/16 14:00 96 26 102/56 90 07/05/16 13:00 90 07/05/16 12:00 88 07/05/16 12:00 97.6 88 33 125/59 93 07/05/16 11:00 96 07/05/16 11:00 96 24 120/59 89 CBC/BMP: 07/05/16 0450 07/05/16 0450 Microbiology Microbiology 07/05/16 Gram Stain, Received Pending 07/05/16 Sputum Culture, Received Pending Physical Exam General General Appearance: Comfortable Eyes Eye Exam: Pupils Equal, Pupils Reactive, Sclera White, Extraocular Movement Intact Throat Throat Exam: Oral Mucosa [place] & Moist, Oral Pharynx Normal Neck Neck Exam: Neck Supple, Trachea Midline Pulmonary Resp Remarks Bilateral wheezing and decreased air entry. Gastrointestinal/Abdomen GI Exam: Soft, Non-Tender, Bowel Sounds Present Musculoskeletal MS Exam: Normal Tone Integumentary Skin Exam: Clear, Warm, Dry, Intact, Normal Turgor Extremeties Extremities Exam: No Edema Neurologic Neuro Exam: Alert, Awake, Oriented, Speech Clear, Moving All Extremities PUD Prophylasis PUD Prophylaxis: Protonix Assessment/Plan Assessment/Plan ASSESSMENT AND PLAN 1. This is an 85-year-old male who came to the ER diagnosed with well known shortness of breath secondary to pneumonia/COPD exacerbation. The patient is on Levaquin 500 mg IV daily and also DuoNeb nebulization and Solu-Medrol 60 mg IV q. 12-hour and also clindamycin IV q. 8-hour. Patient wants to be off Breo. wants Symbicort. 2. Most likely aspiration pneumonia. checking swallow evaluation. The patient is on clindamycin and Levaquin. Pulmonology on the case.. Further recommendation per pulmonary. 3. COPD exacerbation. The patient is on DuoNeb nebulization, Solu-Medrol and antibiotics. Continue that. 4. History of hyperlipidemia. Continue pravastatin 40 mg at bedtime. 5. History of hypothyroidism, continue levothyroxine 75 mcg p.o. daily. 6. History of hypertension. Continue with blood pressure medicine. We will monitor blood pressure. 7. DVT prophylaxis. The patient is on heparin 5000 units subcutaneous q.12 h 8. DVT prophylaxis, Protonix 40 mg daily. The patient also on Potassium carbonate. 9. Renal insufficiency. We will monitor BUN and creatinine. 10. Leukocytosis secondary to pneumonia...resolved. Check CBC with diff CMP in AM. We are going to manage the patient on daily basis and make recommendation on daily basis. Discussed Condition with: Patient Dennis Carver MD Jul 06, 2016 10:48
[2016-07-06] MEDS: LEVOFLOXACIN/DEXTROSE 250 MG/50 ML IV SCH (17:42)
[2016-07-06] MEDS: PRAVASTATIN SOD 40 MG TAB PO SCH (20:45)
[2016-07-06] MEDS ORDERED: PILL SPLITTER OTHER PRN (22:15)
[2016-07-06] MEDS: FAMOTIDINE 20 MG TAB PO SCH (22:51)
[2016-07-07] VITALS (17 sets, daily range): BP systolic 84–154; BP diastolic 61–73; PULSE 78–106; RESP 17–28; TEMP 97.6–98.3; O2SAT 88–100
[2016-07-07] MEDS: CHLORHEXIDINE GLUCONATE 2 % 1 PACK (2 CLOTHS)(taper/protocol) TOP SCH (03:48)
[2016-07-07] MEDS: methylPREDNISolone SOD SUCC 125 MG/2 ML VIAL IV PUSH SCH ×2 (05:07→18:04)
[2016-07-07] MEDS: LEVOTHYROXINE SODIUM 75 MCG TAB PO SCH (05:07)
[2016-07-07 06:33] LABS: AUTOMATED NEUTROPHIL # 11.8 TH/MM3 (1.8-7.7); EOSINOPHIL % 0.1 % (0.0-4.0); HEMO FLAGS DIFF FINAL; LYMPH % 4.1 % (9.0-44.0); LYMPHOCYTE # 0.5 TH/MM3 (1.0-4.8); MEAN CELL VOLUME 83.1 FL (80.0-100.0); MEAN CORPUSCULAR HEMOGLOBIN 27.7 PG (27.0-34.0); MEAN CORPUSCULAR HGB CONC 33.3 % (32.0-36.0); NEUT % 93.8 % (16.0-70.0); PLATELET COUNT 405 TH/MM3 (150-450); RED BLOOD COUNT 4.57 MIL/MM3 (4.50-5.90); RED CELL DISTRIBUTION WIDTH 17.3 % (11.6-17.2); WHITE BLOOD COUNT 12.5 TH/MM3 (4.0-11.0)
[2016-07-07 06:49] LABS: CHLORIDE 108 MEQ/L (98-107); POTASSIUM 4.9 MEQ/L (3.5-5.1); SODIUM (NA) 142 MEQ/L (136-145)
[2016-07-07 06:54] LABS: ANION GAP 10 MEQ/L (5-15); BICARBONATE 24.4 MEQ/L (21.0-32.0)
[2016-07-07 07:04] LABS: ALKALINE PHOSPHATASE 78 U/L (45-117); ALT (GPT) 22 U/L (12-78); AST (GOT) 16 U/L (15-37); BLOOD UREA NITROGEN 44 MG/DL (7-18); GLOMERULAR FILTRATION RATE 45 ML/MIN (>89); TOTAL BILIRUBIN ADULT 0.3 MG/DL (0.2-1.0)
[2016-07-07] MEDS: RESP: ALBUTEROL 2.5 MG/IPRATROPIUM 0.5 MG NEB (SCH) NEB ×3 (07:24→19:31)
[2016-07-07] MEDS: CLINDAMYCIN INJ 600 MG in SODIUM CHLORIDE 0.9% INJ 100 ML IV SCH ×3 (08:38→23:35)
[2016-07-07] MEDS: FAMOTIDINE 20 MG TAB PO SCH ×2 (08:39→20:31)
[2016-07-07] MEDS: HEPARIN SODIUM - SQ 10,000 UNITS/ML VIAL SQ SCH ×2 (08:39→20:32)
--- NOTE | 2016-07-07 10:33 | HHI.PR ---
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 Review of Systems Constitutional Constitutional: Fatigue, Weakness Pulmonary Respiratory: Coughing, Shortness of Breath, Wheezing Vitals/Results Intake & Output 07/06/16 07/06/16 07/07/16 15:00 23:00 07:00 Intake Total 525 ml 360 ml 360 ml Output Total 550 ml 350 ml 600 ml Balance -25 ml 10 ml -240 ml Intake Oral 400 ml 360 ml 360 ml IV Total 125 ml Output Urine Total 550 ml 350 ml 600 ml # Bowel Movements 0 0 0 Vital Signs Vital Signs Date Time Temp Pulse Resp B/P Pulse Ox O2 Delivery O2 Flow Rate FiO2 07/07/16 09:00 86 27 146/72 92 07/07/16 08:00 98.3 83 25 144/70 92 07/07/16 07:42 85 07/07/16 07:24 92 Nasal Cannula 6.00 07/07/16 07:00 98.3 84 26 144/70 92 07/07/16 07:00 92 Nasal Cannula 6.00 07/07/16 06:00 82 23 150/67 94 07/07/16 05:00 78 17 154/69 93 07/07/16 04:00 98.2 80 21 131/65 92 07/07/16 03:00 80 21 132/67 95 07/07/16 02:00 80 18 147/69 98 07/07/16 01:02 88 19 133/61 91 07/07/16 01:00 90 23 84/62 93 07/07/16 00:00 98.2 82 19 139/67 97 07/06/16 23:00 88 07/06/16 23:00 84 19 134/79 95 07/06/16 22:00 84 26 139/69 96 07/06/16 21:00 88 22 133/66 94 07/06/16 20:00 94 25 148/68 89 07/06/16 20:00 98.0 94 25 148/68 89 07/06/16 19:28 96 Nasal Cannula 6.00 07/06/16 19:00 92 26 127/59 91 07/06/16 19:00 94 Nasal Cannula 5.00 07/06/16 18:00 92 30 125/60 92 07/06/16 17:00 90 25 128/59 92 07/06/16 16:00 98.4 94 22 129/56 87 07/06/16 15:18 99 07/06/16 15:00 92 23 117/54 91 07/06/16 14:27 90 Nasal Cannula 6.00 07/06/16 14:00 96 36 131/61 90 07/06/16 13:00 97.9 90 18 117/56 97 07/06/16 12:30 94 27 91 07/06/16 12:15 88 07/06/16 12:00 92 27 128/56 92 07/06/16 11:30 96 30 91 07/06/16 11:00 100 28 127/65 83 CBC/BMP: 07/07/16 0608 07/07/16 0608 Lab Results Laboratory Tests Test 07/07/16 06:08 White Blood Count 12.5 TH/MM3 Red Blood Count 4.57 MIL/MM3 Hemoglobin 12.6 GM/DL Hematocrit 38.0 % Mean Corpuscular Volume 83.1 FL Mean Corpuscular Hemoglobin 27.7 PG Mean Corpuscular Hemoglobin 33.3 % Concent Red Cell Distribution Width 17.3 % Platelet Count 405 TH/MM3 Mean Platelet Volume 7.9 FL Neutrophils (%) (Auto) 93.8 % Lymphocytes (%) (Auto) 4.1 % Monocytes (%) (Auto) 2.0 % Eosinophils (%) (Auto) 0.1 % Basophils (%) (Auto) 0.0 % Neutrophils # (Auto) 11.8 TH/MM3 Lymphocytes # (Auto) 0.5 TH/MM3 Monocytes # (Auto) 0.2 TH/MM3 Eosinophils # (Auto) 0.0 TH/MM3 Basophils # (Auto) 0.0 TH/MM3 CBC Comment DIFF FINAL Differential Comment Sodium Level 142 MEQ/L Potassium Level 4.9 MEQ/L Chloride Level 108 MEQ/L Carbon Dioxide Level 24.4 MEQ/L Anion Gap 10 MEQ/L Blood Urea Nitrogen 44 MG/DL Creatinine 1.50 MG/DL Estimat Glomerular Filtration 45 ML/MIN Rate Random Glucose 106 MG/DL Calcium Level 8.5 MG/DL Total Bilirubin 0.3 MG/DL Aspartate Amino Transf 16 U/L (AST/SGOT) Alanine Aminotransferase 22 U/L (ALT/SGPT) Alkaline Phosphatase 78 U/L Total Protein 7.2 GM/DL Albumin 3.0 GM/DL Physical Exam General General Appearance: Comfortable Eyes Eye Exam: Pupils Equal, Pupils Reactive, Sclera White, Extraocular Movement Intact Throat Throat Exam: Oral Mucosa [place] & Moist, Oral Pharynx Normal Neck Neck Exam: Neck Supple, Trachea Midline Pulmonary Resp Remarks Bilateral wheezing and decreased air entry. Gastrointestinal/Abdomen GI Exam: Soft, Non-Tender, Bowel Sounds Present Musculoskeletal MS Exam: Normal Tone Integumentary Skin Exam: Clear, Warm, Dry, Intact, Normal Turgor Extremeties Extremities Exam: No Edema Neurologic Neuro Exam: Alert, Awake, Oriented, Speech Clear, Moving All Extremities PUD Prophylasis PUD Prophylaxis: Protonix Assessment/Plan Assessment/Plan ASSESSMENT AND PLAN 1. This is an 85-year-old male who came to the ER diagnosed with well known shortness of breath secondary to pneumonia/COPD exacerbation. The patient is on Levaquin 500 mg IV daily and also DuoNeb nebulization and Solu-Medrol 60 mg IV q. 12-hour and also clindamycin IV q. 8-hour. Patient off Breo. wants Symbicort. 2. Most likely aspiration pneumonia. checked swallow evaluation...passed swallow evaluation The patient is on clindamycin and Levaquin. Pulmonology on the case.. Further recommendation per pulmonary. 3. COPD exacerbation. The patient is on DuoNeb nebulization, Solu-Medrol and antibiotics. Continue that. 4. History of hyperlipidemia. Continue pravastatin 40 mg at bedtime. 5. History of hypothyroidism, continue levothyroxine 75 mcg p.o. daily. 6. History of hypertension. Continue with blood pressure medicine. We will monitor blood pressure. 7. DVT prophylaxis. The patient is on heparin 5000 units subcutaneous q.12 h 8. DVT prophylaxis, Protonix 40 mg daily. The patient also on Potassium carbonate. 9. Renal insufficiency. We will monitor BUN and creatinine. 10. Leukocytosis secondary to pneumonia...resolved. Check CBC with diff CMP in AM. ok to transfer med tele PT Eval/Treat. We are going to manage the patient on daily basis and make recommendation on daily basis. Discussed Condition with: Patient Dennis aCrver MD Jul 07, 2016 10:33
[2016-07-07] MEDS: LEVOFLOXACIN/DEXTROSE 250 MG/50 ML IV SCH (16:47)
[2016-07-07] MEDS: PRAVASTATIN SOD 40 MG TAB PO SCH (20:31)
[2016-07-08] VITALS (8 sets, daily range): BP systolic 139–167; BP diastolic 57–77; PULSE 76–87; RESP 19–23; TEMP 96.7–98; O2SAT 92–99
[2016-07-08] MEDS: CHLORHEXIDINE GLUCONATE 2 % 1 PACK (2 CLOTHS)(taper/protocol) TOP SCH (04:01)
[2016-07-08] MEDS: LEVOTHYROXINE SODIUM 75 MCG TAB PO SCH (05:28)
[2016-07-08] MEDS: methylPREDNISolone SOD SUCC 125 MG/2 ML VIAL IV PUSH SCH ×2 (05:28→16:33)
[2016-07-08 05:54] LABS: BASOPHIL % 0.2 % (0.0-2.0); HEMATOCRIT 38.5 % (39.0-51.0); HEMO FLAGS DIFF FINAL; LYMPH % 3.8 % (9.0-44.0); LYMPHOCYTE # 0.4 TH/MM3 (1.0-4.8); MEAN CELL VOLUME 83.3 FL (80.0-100.0); MEAN CORPUSCULAR HEMOGLOBIN 26.9 PG (27.0-34.0); MEAN CORPUSCULAR HGB CONC 32.3 % (32.0-36.0); MONO % 3.1 % (0.0-8.0); NEUT % 92.9 % (16.0-70.0); PLATELET COUNT 397 TH/MM3 (150-450); RED BLOOD COUNT 4.62 MIL/MM3 (4.50-5.90); RED CELL DISTRIBUTION WIDTH 17.4 % (11.6-17.2); WHITE BLOOD COUNT 9.7 TH/MM3 (4.0-11.0)
[2016-07-08 06:15] LABS: CHLORIDE 110 MEQ/L (98-107); POTASSIUM 4.4 MEQ/L (3.5-5.1); SODIUM (NA) 144 MEQ/L (136-145)
[2016-07-08 06:20] LABS: ANION GAP 11 MEQ/L (5-15); BICARBONATE 22.9 MEQ/L (21.0-32.0)
[2016-07-08 06:21] LABS: BLOOD UREA NITROGEN 47 MG/DL (7-18)
[2016-07-08 06:23] LABS: ALT (GPT) 18 U/L (12-78); AST (GOT) 11 U/L (15-37)
[2016-07-08 06:24] LABS: GLOMERULAR FILTRATION RATE 48 ML/MIN (>89)
[2016-07-08 06:25] LABS: TOTAL BILIRUBIN ADULT 0.3 MG/DL (0.2-1.0)
[2016-07-08 06:26] LABS: ALKALINE PHOSPHATASE 67 U/L (45-117)
[2016-07-08] MEDS: RESP: ALBUTEROL 2.5 MG/IPRATROPIUM 0.5 MG NEB (SCH) NEB ×3 (07:44→20:32)
[2016-07-08] MEDS: HEPARIN SODIUM - SQ 10,000 UNITS/ML VIAL SQ SCH ×2 (07:50→20:32)
[2016-07-08] MEDS: CLINDAMYCIN INJ 600 MG in SODIUM CHLORIDE 0.9% INJ 100 ML IV SCH ×2 (07:50→16:33)
[2016-07-08] MEDS: FAMOTIDINE 20 MG TAB PO SCH ×2 (07:50→20:32)
--- NOTE | 2016-07-08 08:09 | HHI.PR ---
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 Review of Systems Constitutional Constitutional: Fatigue, Weakness Pulmonary Respiratory: Coughing, Shortness of Breath, Wheezing Vitals/Results Intake & Output 07/07/16 07/07/16 07/08/16 15:00 23:00 07:00 Intake Total 1000 ml 438 ml 220 ml Output Total 200 ml Balance 1000 ml 238 ml 220 ml Intake Oral 1000 ml 240 ml 120 ml IV Total 198 ml 100 ml Output Urine Total 200 ml # Voids 2 5 # Bowel Movements 2 0 0 Vital Signs Vital Signs Date Time Temp Pulse Resp B/P Pulse Ox O2 Delivery O2 Flow Rate FiO2 07/08/16 07:46 96 Nasal Cannula 5.00 07/08/16 07:00 94 Nasal Cannula 5.00 07/08/16 04:00 97.8 82 151/76 97 07/08/16 00:00 97.8 84 139/57 96 07/07/16 20:00 94 07/07/16 20:00 97.7 100 24 145/62 88 07/07/16 19:31 100 Nasal Cannula 6.00 07/07/16 19:00 96 Nasal Cannula 5.00 07/07/16 16:00 98.1 106 28 154/73 93 07/07/16 12:00 97.6 90 23 127/62 96 07/07/16 09:00 86 27 146/72 92 CBC/BMP: 07/08/16 0450 07/08/16 0450 Lab Results Laboratory Tests Test 07/08/16 04:50 White Blood Count 9.7 TH/MM3 Red Blood Count 4.62 MIL/MM3 Hemoglobin 12.4 GM/DL Hematocrit 38.5 % Mean Corpuscular Volume 83.3 FL Mean Corpuscular Hemoglobin 26.9 PG Mean Corpuscular Hemoglobin 32.3 % Concent Red Cell Distribution Width 17.4 % Platelet Count 397 TH/MM3 Mean Platelet Volume 8.1 FL Neutrophils (%) (Auto) 92.9 % Lymphocytes (%) (Auto) 3.8 % Monocytes (%) (Auto) 3.1 % Eosinophils (%) (Auto) 0.0 % Basophils (%) (Auto) 0.2 % Neutrophils # (Auto) 9.0 TH/MM3 Lymphocytes # (Auto) 0.4 TH/MM3 Monocytes # (Auto) 0.3 TH/MM3 Eosinophils # (Auto) 0.0 TH/MM3 Basophils # (Auto) 0.0 TH/MM3 CBC Comment DIFF FINAL Differential Comment Sodium Level 144 MEQ/L Potassium Level 4.4 MEQ/L Chloride Level 110 MEQ/L Carbon Dioxide Level 22.9 MEQ/L Anion Gap 11 MEQ/L Blood Urea Nitrogen 47 MG/DL Creatinine 1.40 MG/DL Estimat Glomerular Filtration 48 ML/MIN Rate Random Glucose 106 MG/DL Calcium Level 8.2 MG/DL Total Bilirubin 0.3 MG/DL Aspartate Amino Transf 11 U/L (AST/SGOT) Alanine Aminotransferase 18 U/L (ALT/SGPT) Alkaline Phosphatase 67 U/L Total Protein 6.6 GM/DL Albumin 2.8 GM/DL Physical Exam General General Appearance: Comfortable Eyes Eye Exam: Pupils Equal, Pupils Reactive, Sclera White, Extraocular Movement Intact Throat Throat Exam: Oral Mucosa [place] & Moist, Oral Pharynx Normal Neck Neck Exam: Neck Supple, Trachea Midline Pulmonary Resp Remarks Bilateral wheezing and decreased air entry. Gastrointestinal/Abdomen GI Exam: Soft, Non-Tender, Bowel Sounds Present Musculoskeletal MS Exam: Normal Tone Integumentary Skin Exam: Clear, Warm, Dry, Intact, Normal Turgor Extremeties Extremities Exam: No Edema Neurologic Neuro Exam: Alert, Awake, Oriented, Speech Clear, Moving All Extremities PUD Prophylasis PUD Prophylaxis: Protonix Assessment/Plan Assessment/Plan ASSESSMENT AND PLAN 1. This is an 85-year-old male who came to the ER diagnosed with well known shortness of breath secondary to pneumonia/COPD exacerbation. The patient is on Levaquin 500 mg IV daily and also DuoNeb nebulization and Solu-Medrol 60 mg IV q. 12-hour and also clindamycin IV q. 8-hour. Patient off Breo. wants Symbicort. 2. Most likely aspiration pneumonia. checked swallow evaluation...passed swallow evaluation The patient is on clindamycin and Levaquin. Pulmonology on the case.. Further recommendation per pulmonary. 3. COPD exacerbation. The patient is on DuoNeb nebulization, Solu-Medrol and antibiotics. Continue that. 4. History of hyperlipidemia. Continue pravastatin 40 mg at bedtime. 5. History of hypothyroidism, continue levothyroxine 75 mcg p.o. daily. 6. History of hypertension. Continue with blood pressure medicine. We will monitor blood pressure. 7. DVT prophylaxis. The patient is on heparin 5000 units subcutaneous q.12 h 8. DVT prophylaxis, Protonix 40 mg daily. The patient also on Potassium carbonate. 9. Renal insufficiency. We will monitor BUN and creatinine. 10. Leukocytosis secondary to pneumonia...resolved. Check CBC with diff CMP in AM. ok to transfer med tele PT Eval/Treat. We are going to manage the patient on daily basis and make recommendation on daily basis. Discussed Condition with: Patient Dennis Carver MD Jul 08, 2016 08:09
[2016-07-08 09:55] LABS: ANION GAP 9 MEQ/L (5-15); CHLORIDE 109 MEQ/L (98-107); POTASSIUM 4.4 MEQ/L (3.5-5.1); SODIUM (NA) 142 MEQ/L (136-145)
[2016-07-08 09:57] LABS: ALT (GPT) 21 U/L (12-78); AST (GOT) 12 U/L (15-37); GLOMERULAR FILTRATION RATE 48 ML/MIN (>89)
[2016-07-08 09:58] LABS: TOTAL BILIRUBIN ADULT 0.4 MG/DL (0.2-1.0)
[2016-07-08 10:00] LABS: ALKALINE PHOSPHATASE 71 U/L (45-117)
[2016-07-08 10:04] LABS: BLOOD UREA NITROGEN 44 MG/DL (7-18)
--- NOTE | 2016-07-08 11:23 | RADHPO ---
EXAM DATE/TIME: 07/08/2016 11:12 [place] COMPARISON: CHEST SINGLE AP, July 04, 2016, 10:32. INDICATIONS : Short of breath MEDICAL HISTORY : Carcinoma, lung. Chronic obstructive pulmonary disease. SURGICAL HISTORY : None. ENCOUNTER: Initial ACUITY: 2 weeks PAIN SCORE: 2/10 LOCATION: Bilateral chest FINDINGS: Area of consolidation in the left base has cleared with some mild persistent density in the right drake g base. CONCLUSION: Improved pulmonary status clearing of density consolidation the left lung base with some persistent d ensity in the right lung base Jose Robison MD on July 08, 2016 at 11:21 Board Certified Radiologist. This report was verified electronically.
[2016-07-08] MEDS: LEVOFLOXACIN/DEXTROSE 250 MG/50 ML IV SCH (16:32)
[2016-07-08] MEDS: PRAVASTATIN SOD 40 MG TAB PO SCH (20:32)
[2016-07-09] VITALS (7 sets, daily range): BP systolic 128–157; BP diastolic 71–84; PULSE 77–89; RESP 15–20; TEMP 96.2–98.1; O2SAT 93–98
[2016-07-09] MEDS: CHLORHEXIDINE GLUCONATE 2 % 1 PACK (2 CLOTHS)(taper/protocol) TOP SCH (00:05)
[2016-07-09] MEDS: LEVOTHYROXINE SODIUM 75 MCG TAB PO SCH (06:00)
[2016-07-09] MEDS: methylPREDNISolone SOD SUCC 125 MG/2 ML VIAL IV PUSH SCH (06:00)
[2016-07-09 06:39] LABS: AUTOMATED NEUTROPHIL # 8.5 TH/MM3 (1.8-7.7); BASOPHIL % 0.2 % (0.0-2.0); EOSINOPHIL # 0.1 TH/MM3 (0-0.4); EOSINOPHIL % 0.8 % (0.0-4.0); HEMATOCRIT 42.9 % (39.0-51.0); HEMO FLAGS DIFF FINAL; LYMPH % 6.3 % (9.0-44.0); LYMPHOCYTE # 0.6 TH/MM3 (1.0-4.8); MEAN CELL VOLUME 83.3 FL (80.0-100.0); MEAN CORPUSCULAR HEMOGLOBIN 26.8 PG (27.0-34.0); MEAN CORPUSCULAR HGB CONC 32.2 % (32.0-36.0); MONO % 4.9 % (0.0-8.0); NEUT % 87.8 % (16.0-70.0); PLATELET COUNT 412 TH/MM3 (150-450); RED BLOOD COUNT 5.16 MIL/MM3 (4.50-5.90); RED CELL DISTRIBUTION WIDTH 17.5 % (11.6-17.2); WHITE BLOOD COUNT 9.7 TH/MM3 (4.0-11.0)
[2016-07-09 06:43] LABS: CHLORIDE 109 MEQ/L (98-107); POTASSIUM 4.2 MEQ/L (3.5-5.1); SODIUM (NA) 143 MEQ/L (136-145)
[2016-07-09 06:48] LABS: ANION GAP 10 MEQ/L (5-15); BICARBONATE 24.1 MEQ/L (21.0-32.0); BLOOD UREA NITROGEN 42 MG/DL (7-18)
[2016-07-09 06:51] LABS: ALT (GPT) 23 U/L (12-78); AST (GOT) 12 U/L (15-37); GLOMERULAR FILTRATION RATE 53 ML/MIN (>89)
[2016-07-09 06:52] LABS: TOTAL BILIRUBIN ADULT 0.3 MG/DL (0.2-1.0)
[2016-07-09 06:54] LABS: ALKALINE PHOSPHATASE 72 U/L (45-117)
[2016-07-09] MEDS: FAMOTIDINE 20 MG TAB PO SCH ×4 (09:00→21:08)
--- NOTE | 2016-07-09 09:07 | HHI.PR ---
Subjective History of Present Illness Patient fell a lot better SOB better on 5 litre oxygen by nasal canula.. No Acute issue D/W RN Antoinette at bed side. getting physical therapy DC Plan tomorrow per patient request. Review of Systems Constitutional Constitutional: Fatigue, Weakness Pulmonary Respiratory: Coughing, Shortness of Breath, Wheezing Vitals/Results Intake & Output 07/08/16 07/08/16 07/09/16 15:00 23:00 07:00 Intake Total 100 ml 220 ml 1400 ml Output Total 150 ml 250 ml 875 ml Balance -50 ml -30 ml 525 ml Intake Oral 220 ml 1400 ml IV Total 100 ml Output Urine Total 150 ml 250 ml 875 ml # Voids 1 # Bowel Movements 1 0 0 Vital Signs Vital Signs Date Time Temp Pulse Resp B/P Pulse Ox O2 Delivery O2 Flow Rate FiO2 07/09/16 08:13 96.2 77 16 157/84 98 07/09/16 07:38 98 Nasal Cannula 5.00 07/09/16 07:00 97 Nasal Cannula 5.00 Humidified 07/09/16 00:00 96.5 85 18 151/71 97 07/08/16 20:32 95 Nasal Cannula 5.00 07/08/16 20:00 98 Nasal Cannula 5.00 Humidified 07/08/16 20:00 98.0 87 20 153/75 98 07/08/16 16:00 97.7 76 19 148/70 96 07/08/16 12:00 82 22 99 CBC/BMP: 07/09/16 0537 07/09/16 0537 Lab Results Laboratory Tests Test 07/09/16 05:37 White Blood Count 9.7 TH/MM3 Red Blood Count 5.16 MIL/MM3 Hemoglobin 13.8 GM/DL Hematocrit 42.9 % Mean Corpuscular Volume 83.3 FL Mean Corpuscular Hemoglobin 26.8 PG Mean Corpuscular Hemoglobin 32.2 % Concent Red Cell Distribution Width 17.5 % Platelet Count 412 TH/MM3 Mean Platelet Volume 8.1 FL Neutrophils (%) (Auto) 87.8 % Lymphocytes (%) (Auto) 6.3 % Monocytes (%) (Auto) 4.9 % Eosinophils (%) (Auto) 0.8 % Basophils (%) (Auto) 0.2 % Neutrophils # (Auto) 8.5 TH/MM3 Lymphocytes # (Auto) 0.6 TH/MM3 Monocytes # (Auto) 0.5 TH/MM3 Eosinophils # (Auto) 0.1 TH/MM3 Basophils # (Auto) 0.0 TH/MM3 CBC Comment DIFF FINAL Differential Comment Sodium Level 143 MEQ/L Potassium Level 4.2 MEQ/L Chloride Level 109 MEQ/L Carbon Dioxide Level 24.1 MEQ/L Anion Gap 10 MEQ/L Blood Urea Nitrogen 42 MG/DL Creatinine 1.30 MG/DL Estimat Glomerular Filtration 53 ML/MIN Rate Random Glucose 96 MG/DL Calcium Level 8.4 MG/DL Total Bilirubin 0.3 MG/DL Aspartate Amino Transf 12 U/L (AST/SGOT) Alanine Aminotransferase 23 U/L (ALT/SGPT) Alkaline Phosphatase 72 U/L Total Protein 7.1 GM/DL Albumin 3.1 GM/DL Physical Exam General General Appearance: No Acute Distress, Comfortable Eyes Eye Exam: Pupils Equal, Pupils Reactive, Sclera White, Extraocular Movement Intact Throat Throat Exam: Oral Mucosa [place] & Moist, Oral Pharynx Normal Neck Neck Exam: Neck Supple, Trachea Midline Pulmonary Resp Remarks Bilateral wheezing and decreased air entry. Cardiology CV Exam: Regular Gastrointestinal/Abdomen GI Exam: Soft, Non-Tender, Bowel Sounds Present Musculoskeletal MS Exam: Normal Tone Integumentary Skin Exam: Clear, Warm, Dry, Intact, Normal Turgor Extremeties Extremities Exam: No Edema Neurologic Neuro Exam: Alert, Awake, Oriented, Speech Clear, Moving All Extremities PUD Prophylasis PUD Prophylaxis: Protonix Assessment/Plan Assessment/Plan ASSESSMENT AND PLAN 1. This is an 85-year-old male who came to the ER diagnosed with well known shortness of breath secondary to pneumonia/COPD exacerbation. The patient is on Levaquin 500 mg IV daily and also DuoNeb nebulization and Solu-Medrol 40 mg IV q. 12-hour and also clindamycin IV q. 8-hour. Patient off Breo. on Symbicort. 2. Most likely aspiration pneumonia. checked swallow evaluation...passed swallow evaluation The patient is on clindamycin and Levaquin. Pulmonology on the case.. Further recommendation per pulmonary. 3. COPD exacerbation. The patient is on DuoNeb nebulization, Solu-Medrol and antibiotics. 4. History of hyperlipidemia. Continue pravastatin 40 mg at bedtime. 5. History of hypothyroidism, continue levothyroxine 75 mcg p.o. daily. 6. History of hypertension. Continue with blood pressure medicine. We will monitor blood pressure. 7. DVT prophylaxis. The patient is on heparin 5000 units subcutaneous q.12 h 8. DVT prophylaxis, Protonix 40 mg daily. The patient also on Potassium carbonate. 9. Renal insufficiency. We will monitor BUN and creatinine. 10. Leukocytosis secondary to pneumonia...resolved. Check CBC with diff CMP in AM. getting Physical therapy. We are going to manage the patient on daily basis and make recommendation on daily basis. Discussed Condition with: Patient Dennis Carver MD Jul 09, 2016 09:07
[2016-07-09] MEDS: CLINDAMYCIN INJ 600 MG in SODIUM CHLORIDE 0.9% INJ 100 ML IV SCH ×4 (09:14→17:18)
[2016-07-09] MEDS: HEPARIN SODIUM - SQ 10,000 UNITS/ML VIAL SQ SCH ×2 (09:15→21:09)
[2016-07-09] MEDS: RESP: ALBUTEROL 2.5 MG/IPRATROPIUM 0.5 MG NEB (SCH) NEB ×2 (13:31→19:58)
[2016-07-09] MEDS: methylPREDNISolone SOD SUCC 40 MG/1 ML VIAL IV SCH (17:18)
[2016-07-09] MEDS: LEVOFLOXACIN/DEXTROSE 250 MG/50 ML IV SCH (17:18)
[2016-07-09] MEDS: PRAVASTATIN SOD 40 MG TAB PO SCH (21:08)
[2016-07-10] VITALS: BP 152/78; PULSE 89; RESP 20; TEMP 98.4; O2SAT 95
[2016-07-10] MEDS: CLINDAMYCIN INJ 600 MG in SODIUM CHLORIDE 0.9% INJ 100 ML IV SCH ×2 (00:17→10:10)
[2016-07-10] MEDS: CHLORHEXIDINE GLUCONATE 2 % 1 PACK (2 CLOTHS)(taper/protocol) TOP SCH (00:21)
[2016-07-10] MEDS: methylPREDNISolone SOD SUCC 40 MG/1 ML VIAL IV SCH (05:22)
[2016-07-10] MEDS: LEVOTHYROXINE SODIUM 75 MCG TAB PO SCH (05:22)
[2016-07-10 06:34] LABS: AUTOMATED NEUTROPHIL # 6.6 TH/MM3 (1.8-7.7); BASOPHIL # 0.4 TH/MM3 (0-0.2); BASOPHIL % 4.7 % (0.0-2.0); EOSINOPHIL % 0.1 % (0.0-4.0); HEMATOCRIT 42.9 % (39.0-51.0); HEMO FLAGS DIFF FINAL; LYMPH % 9.7 % (9.0-44.0); LYMPHOCYTE # 0.8 TH/MM3 (1.0-4.8); MEAN CELL VOLUME 82.4 FL (80.0-100.0); MEAN CORPUSCULAR HEMOGLOBIN 27.5 PG (27.0-34.0); MEAN CORPUSCULAR HGB CONC 33.4 % (32.0-36.0); MONO % 7.1 % (0.0-8.0); NEUT % 78.4 % (16.0-70.0); PLATELET COUNT 413 TH/MM3 (150-450); RED BLOOD COUNT 5.21 MIL/MM3 (4.50-5.90); RED CELL DISTRIBUTION WIDTH 16.8 % (11.6-17.2); WHITE BLOOD COUNT 8.4 TH/MM3 (4.0-11.0)
[2016-07-10 06:38] LABS: CHLORIDE 107 MEQ/L (98-107); POTASSIUM 4.5 MEQ/L (3.5-5.1); SODIUM (NA) 140 MEQ/L (136-145)
[2016-07-10 06:43] LABS: ANION GAP 8 MEQ/L (5-15); BICARBONATE 25.5 MEQ/L (21.0-32.0); BLOOD UREA NITROGEN 43 MG/DL (7-18)
[2016-07-10 06:46] LABS: ALT (GPT) 20 U/L (12-78); AST (GOT) 15 U/L (15-37); GLOMERULAR FILTRATION RATE 58 ML/MIN (>89)
[2016-07-10 06:47] LABS: TOTAL BILIRUBIN ADULT 0.4 MG/DL (0.2-1.0)
[2016-07-10 06:49] LABS: ALKALINE PHOSPHATASE 70 U/L (45-117)
[2016-07-10] MEDS: RESP: ALBUTEROL 2.5 MG/IPRATROPIUM 0.5 MG NEB (SCH) NEB ×2 (07:51→13:48)
[2016-07-10 07:52] VITALS: O2SAT 98
--- NOTE | 2016-07-10 08:35 | HHI.PR ---
Subjective History of Present Illness Patient fell a lot better SOB better on 5 litre oxygen by nasal canula.. No Acute issue getting physical therapy ok to dc home today. Review of Systems Constitutional Constitutional: Fatigue, Weakness Pulmonary Respiratory: Coughing, Shortness of Breath, Wheezing Vitals/Results Intake & Output 07/09/16 07/09/16 07/10/16 15:00 23:00 07:00 Intake Total 1446 ml 175 ml Output Total 350 ml 700 ml Balance 1096 ml -525 ml Intake Oral 1240 ml 60 ml IV Total 206 ml 115 ml Output Urine Total 350 ml 700 ml # Voids 6 4 # Bowel Movements 0 0 Vital Signs Vital Signs Date Time Temp Pulse Resp B/P Pulse Ox O2 Delivery O2 Flow Rate FiO2 07/10/16 07:52 98 Nasal Cannula 3.50 07/10/16 00:00 98.4 89 20 152/78 95 07/09/16 20:00 93 Nasal Cannula 3.50 07/09/16 20:00 98.1 87 20 128/71 93 07/09/16 20:00 93 Nasal Cannula 3.00 Humidified 07/09/16 17:42 97.1 89 15 136/75 96 07/09/16 13:31 98 Nasal Cannula 4.00 07/09/16 12:28 96.7 86 18 137/71 97 CBC/BMP: 07/10/16 0615 07/10/16 0615 Lab Results Laboratory Tests Test 07/10/16 06:15 White Blood Count 8.4 TH/MM3 Red Blood Count 5.21 MIL/MM3 Hemoglobin 14.3 GM/DL Hematocrit 42.9 % Mean Corpuscular Volume 82.4 FL Mean Corpuscular Hemoglobin 27.5 PG Mean Corpuscular Hemoglobin 33.4 % Concent Red Cell Distribution Width 16.8 % Platelet Count 413 TH/MM3 Mean Platelet Volume 8.0 FL Neutrophils (%) (Auto) 78.4 % Lymphocytes (%) (Auto) 9.7 % Monocytes (%) (Auto) 7.1 % Eosinophils (%) (Auto) 0.1 % Basophils (%) (Auto) 4.7 % Neutrophils # (Auto) 6.6 TH/MM3 Lymphocytes # (Auto) 0.8 TH/MM3 Monocytes # (Auto) 0.6 TH/MM3 Eosinophils # (Auto) 0.0 TH/MM3 Basophils # (Auto) 0.4 TH/MM3 CBC Comment DIFF FINAL Differential Comment Sodium Level 140 MEQ/L Potassium Level 4.5 MEQ/L Chloride Level 107 MEQ/L Carbon Dioxide Level 25.5 MEQ/L Anion Gap 8 MEQ/L Blood Urea Nitrogen 43 MG/DL Creatinine 1.20 MG/DL Estimat Glomerular Filtration 58 ML/MIN Rate Random Glucose 97 MG/DL Calcium Level 8.3 MG/DL Total Bilirubin 0.4 MG/DL Aspartate Amino Transf 15 U/L (AST/SGOT) Alanine Aminotransferase 20 U/L (ALT/SGPT) Alkaline Phosphatase 70 U/L Total Protein 6.8 GM/DL Albumin 3.0 GM/DL Physical Exam General General Appearance: No Acute Distress, Comfortable Eyes Eye Exam: Pupils Equal, Pupils Reactive, Sclera White, Extraocular Movement Intact Throat Throat Exam: Oral Mucosa [place] & Moist, Oral Pharynx Normal Neck Neck Exam: Neck Supple, Trachea Midline Pulmonary Resp Remarks Bilateral wheezing and decreased air entry. Cardiology CV Exam: Regular Gastrointestinal/Abdomen GI Exam: Soft, Non-Tender, Bowel Sounds Present Musculoskeletal MS Exam: Normal Tone Integumentary Skin Exam: Clear, Warm, Dry, Intact, Normal Turgor Extremeties Extremities Exam: No Edema Neurologic Neuro Exam: Alert, Awake, Oriented, Speech Clear, Moving All Extremities PUD Prophylasis PUD Prophylaxis: Protonix Assessment/Plan Assessment/Plan ASSESSMENT AND PLAN 1. This is an 85-year-old male who came to the ER diagnosed with well known shortness of breath secondary to pneumonia/COPD exacerbation. The patient is on Levaquin 500 mg IV daily and also DuoNeb nebulization and Solu-Medrol 40 mg IV q. 12-hour and also clindamycin IV q. 8-hour. Patient off Breo. on Symbicort. 2. Most likely aspiration pneumonia. checked swallow evaluation...passed swallow evaluation The patient is on clindamycin and Levaquin. Pulmonology on the case.. Further recommendation per pulmonary. 3. COPD exacerbation. The patient is on DuoNeb nebulization, Solu-Medrol and antibiotics. 4. History of hyperlipidemia. Continue pravastatin 40 mg at bedtime. 5. History of hypothyroidism, continue levothyroxine 75 mcg p.o. daily. 6. History of hypertension. Continue with blood pressure medicine. We will monitor blood pressure. 7. DVT prophylaxis. The patient is on heparin 5000 units subcutaneous q.12 h 8. DVT prophylaxis, Protonix 40 mg daily. The patient also on Potassium carbonate. 9. Renal insufficiency. We will monitor BUN and creatinine. 10. Leukocytosis secondary to pneumonia...resolved. ok to dc home today. f/u with pcp/ pulmonary 1 week. Discussed Condition with: Patient Dennis Carver MD Jul 10, 2016 08:35 Dennis Carver MD Jul 10, 2016 08:35
[2016-07-10 08:53] VITALS: BP 180/88; PULSE 80; RESP 16; TEMP 96.5; O2SAT 99
[2016-07-10] MEDS: HEPARIN SODIUM - SQ 10,000 UNITS/ML VIAL SQ SCH (09:00)
[2016-07-10] MEDS: FAMOTIDINE 20 MG TAB PO SCH (10:09)
[2016-07-10] MEDS ORDERED: PRED20 PO (11:50)
[2016-07-10] MEDS ORDERED: LEVO500T3 PO (11:50)
--- NOTE | 2016-07-16 09:18 | MD ---
cc: DENNIS MALIN MD ADMISSION DATE: 07/04/2016 DISCHARGE DATE: 07/10/2016 DISPOSITION Okay to discharge patient. CONDITION AT THE TIME OF DISCHARGE Satisfactory. ACTIVITY As tolerated. DIET Cardiac diet. ALLERGY PRILOSEC. DISCHARGE MEDICATIONS 1. Levaquin 5 mg p.o. daily for 2 weeks. 2. Prednisone 20 mg p.o. daily. 3. Amlodipine 10 mg p.o. daily. 4. Symbicort two puffs inhalation q. 12-hours. 5. Calcium carbonate 1000 mg q.4 hours p.r.n. indigestion. 6. Breo Ellipta 100/25 one puff inhalation daily. 7. Levothyroxine 75 mcg p.o. daily. 8. Lovastatin 40 mg p.o. daily. 9. Spiriva 18 mcg inhalation daily. FOLLOWUP The patient is to follow up with PCP and pulmonary in one week. ADMISSION DIAGNOSIS 1. Shortness of breath secondary to pneumonia. 2. COPD exacerbation. DISCHARGE DIAGNOSES 1. Shortness of breath improved. 2. COPD exacerbation improved. 3. History of COPD: Continue home medications. 4. History of hyperlipidemia. 5. Hypothyroidism. 6. Hypertension. 7. Renal insufficiency which improved. 8. Leukocytosis secondary to pneumonia which resolved. HOSPITAL COURSE This is an 85-year-old male with a past medical-surgical history as dictated in the history and physical examination. Came to the ER with shortness of breath, diagnosed with pneumonia. The patient was given empiric antibiotic. The patient also had COPD exacerbation. The patient remained stable during the hospital stay. No acute event happened. The patient's CT angio done shows no pulmonary embolism. Findings of diagnostic of aspiration pneumonia was diagnosed. The patient was given Levaquin, clindamycin during the hospital stay. CONDITION ON DISCHARGE The patient was discharged in satisfactory condition. Further details in the medical record. Dennis Malin MD EA/RADAMES /6:20 PM /9:07 AM
== END 2016-07-10 14:22 | disposition home or self-care (01) | DRG 178 ==
LOC: PHED 10:08 → PHEDA 13:13 → PH3A 15:10 → PHICU 21:48 → PH3A 07-08 15:19
PROVIDERS: ADMIT Family Medicine; ATTEND Family Medicine
PROC: 3E0F7GC Introduction of Other Therapeutic Substance into Respiratory Tract, Via Natural or Artificial Opening (ICD-10-PCS; principal; 2016-07-04)
DX: J69.0 Pneumonitis due to inhalation of food and vomit (principal); J44.1 Chronic obstructive pulmonary disease with (acute) exacerbation; J90 Pleural effusion, not elsewhere classified; Z99.81 Dependence on supplemental oxygen; I10 Essential (primary) hypertension; Z85.118 Personal history of other malignant neoplasm of bronchus and lung; Z85.46 Personal history of malignant neoplasm of prostate; Z87.891 Personal history of nicotine dependence; Z92.3 Personal history of irradiation; E78.5 Hyperlipidemia, unspecified; F32.9 Major depressive disorder, single episode, unspecified; E03.9 Hypothyroidism, unspecified; N28.9 Disorder of kidney and ureter, unspecified; E78.00 Pure hypercholesterolemia, unspecified; H91.90 Unspecified hearing loss, unspecified ear; R09.02 Hypoxemia
CPT/HCPCS: 36600; 71010; 71275; 80053; 82550; 82805; 83605; 83880; 84484; 85025; 85379; 85610; 85730; 87040; 87070; 87205; 87641; 87804; 93005; 93306; 94640; 94664; 96365; 96367; J0456; J0696; J1644; J1956; J2920; J2930; J7050; Q9967

== ENCOUNTER 2016-08-16 02:25 | Inpatient (IN) | payer MEDICARE ==
[~2016-08-16] VITALS: Ht 165.1 cm; Wt 63.5 kg
[2016-08-16] VITALS (28 sets, daily range): BP systolic 94–158; BP diastolic 55–125; PULSE 65–136; RESP 17–30; TEMP 96.5–98.7; O2SAT 90–100
[~2016-08-16 02:25] MED LIST changes: -CEFT500T3 PO; +LEVO500T3 PO; -MEGE40SU PO; +PRED20 PO; +SYMB160A INH; -ZITH500T PO
--- NOTE | 2016-08-16 02:40 | PD ---
HPI Chief Complaint: Respiratory Distress Time Seen by Provider: 02:29 Travel History International Travel<30 days: No Contact w/Intl Traveler<30days: No Traveled to known affect area: No History of Present Illness HPI The patient is a 85-year-old male who presents to the emergency department via EMS for shortness of breath. The patient notes a one-week history of increasing shortness of breath as well as anterior chest pain that wraps around the anterior aspect the chest, described as pressure, with shortness of breath. He also notes a dry nonproductive cough. The patient complains of pain located over the posterior aspect of the oropharynx a goes down into the chest, he believes it is secondary to his oxygen concentrator. The patient does have a remote history of lung cancer with previous treatment, states he is currently in remission and is followed by his floorworker, Dr. Reeder. The patient states he had similar symptoms last month secondary to pneumonia. He denies any fever, chills, or sweats. The patient was administered aspirin and nitroglycerin prior to arrival which did not alleviate his symptoms. The patient denies any concurrent diaphoresis, nausea, vomiting, or abdominal pain. The patient's primary physician is Dr. Gomez. PFSH Past Medical History Hx Anticoagulant Therapy: No Anxiety: No Depression: Yes Cancer: Yes (PROSTATE, LUNG) Cardiovascular Problems: Yes High Cholesterol: Yes Congestive Heart Failure: No COPD: Yes Coronary Artery Disease: No Diabetes: No Diminished Hearing: Yes Endocrine: Yes Gastrointestinal Disorders: No Genitourinary: No Hepatitis: No Hiatal Hernia: No Hypertension: Yes Immune Disorder: No Implanted Vascular Access Dvce: No Musculoskeletal: No Neurologic: No Psychiatric: Yes Reproductive: No Respiratory: Yes (COPD; LUNG CA) Radiation Therapy: Yes Sleep Apnea: No Thyroid Disease: Yes Past Surgical History Abdominal Surgery: Yes (HERNIA) Cardiac Surgery: No Ear Surgery: No Endocrine Surgery: No Eye Surgery: No Genitourinary Surgery: No Gynecologic Surgery: No Neurologic Surgery: No Oral Surgery: No Thoracic Surgery: No Other Surgery: Yes Social History Alcohol Use: No Tobacco Use: No (FORMER) Substance Use: No Allergies-Medications (Allergen,Severity, Reaction): Coded Allergies: Prilosec (Verified Adverse Reaction, Intermediate, abdominal pain, 07/04/16 ) per patient Reported Meds & Prescriptions Reported Meds & Active Scripts Active Prednisone 20 Mg Tab 20 Mg PO DAILY Calcium Carbonate (Antacid) 500 Mg Chew 1,000 Mg PO Q4H PRN Reported Symbicort Inh (Budesonide/Formoterol Fumarate) 160-4.5 Mcg/Act Aero 2 Puff INH Q12HR Spiriva Handihaler (Tiotropium Inh) 18 Mcg Cap 18 Mcg INH DAILY 1 capsule = 18 mcg Breo Ellipta Inh (Fluticasone/Vilanterol) 100-25 Mcg/Act Inh 1 Puff INH DAILY Use daily at the same time. Levothyroxine (Levothyroxine Sodium) 75 Mcg Tab 75 Mcg PO DAILY Lovastatin 40 Mg Tab 40 Mg PO HS Amlodipine (Amlodipine Besylate) 10 Mg Tab 10 Mg PO DAILY Review of Systems Except as stated in HPI: all other systems reviewed are Neg General / Constitutional: No: Fever Cardiovascular: Positive: Chest Pain or Discomfort, Dyspnea on exertion, No: Diaphoresis Respiratory: Positive: Cough, Shortness of Breath Gastrointestinal: No: Nausea, Vomiting, Abdominal Pain Musculoskeletal: No: Weakness, Edema Physical Exam Narrative GENERAL: Awake, alert, 85-year-old male appears his stated age and is in moderate respiratory distress. SKIN: Warm and dry. HEAD: Atraumatic. Normocephalic. EYES: No injection or drainage. ENT: No nasal bleeding or discharge. Mucous membranes pink and moist. NECK: Trachea midline. No JVD. CARDIOVASCULAR: Regular, tachycardic with a heart rate of 110. RESPIRATORY: Mild tachypnea with supraclavicular muscle use. Prolonged expiratory phase with rhonchi noted in the bases bilateral. GASTROINTESTINAL: Abdomen soft, non-tender, nondistended. No rebound tenderness. MUSCULOSKELETAL: No obvious deformities. No clubbing. No cyanosis. No edema. NEUROLOGICAL: Awake and alert. No obvious cranial nerve deficits. Motor grossly within normal limits. Normal speech. Only able to speak in 2-3 word sentences secondary to shortness of breath. No dysarthria noted. PSYCHIATRIC: Appropriate mood and affect; insight and judgment normal. Data Data Last Documented VS Vital Signs Date Time Temp Pulse Resp B/P Pulse Ox O2 Delivery O2 Flow Rate FiO2 08/16/16 04:35 90 18 101/55 100 BiPAP 08/16/16 03:08 96 08/16/16 02:28 97.9 Orders Complete Blood Count With Diff (3/10/17 02:34) Comprehensive Metabolic Panel (08/16/16 02:34) B-Type Natriuretic Peptide (08/16/16 02:34) Act Partial Throm Time (Ptt) (08/16/16 02:34) Prothrombin Time / Inr (Pt) (08/16/16 02:34) Magnesium (Mg) (08/16/16 02:34) Ckmb (Isoenzyme) Profile (08/16/16 02:34) Troponin I (08/16/16 02:34) Blood Culture (08/16/16 02:34) Iv Access Insert/Monitor (08/16/16 02:34) Electrocardiogram (08/16/16 02:34) Ecg Monitoring (08/16/16 02:34) Oximetry (08/16/16 02:34) Oxygen Administration (08/16/16 02:34) Chest, Single Ap (08/16/16 02:34) Sodium Chloride 0.9% Flush (Ns Flush) (08/16/16 02:45) Methylprednisolone So Succ Inj (Solumedr (08/16/16 02:45) Albuterol-Ipratropium Neb (Duoneb Neb) (08/16/16 02:45) Lactic Acid (08/16/16 02:34) Resp Blood Gas Venous (08/16/16 ) Resp Bipap / Cpap Non Invas Vt (08/16/16 ) CKMB (08/16/16 02:45) CKMB% (08/16/16 02:45) Nitroglycerin-Dextrose Inj (Nitroglyceri (08/16/16 04:00) Heparin Infusion MARYANN.Q1H (08/16/16 03:54) Heparin Inj (Heparin Inj) (08/16/16 04:00) Heparin Inj (Heparin Inj) (08/16/16 10:00) Heparin Inj (Heparin Inj) (08/16/16 10:00) Heparin-D5w Inj (Heparin-D5w Inj) (08/16/16 04:00) Act Partial Throm Time (Ptt) (08/16/16 03:54) Cbc No Diff, Includes Plts (08/16/16 03:54) Cbc No Diff, Includes Plts (08/19/16 06:00) Act Partial Throm Time (Ptt) (08/16/16 10:54) Occult Blood (Hemoccult) Stool (08/16/16 03:54) Labs Laboratory Tests Test 08/16/16 08/16/16 02:45 04:09 Prothrombin Time 19.2 SEC Prothromb Time International 1.7 RATIO Ratio Activated Partial 49.4 SEC 30.6 SEC Thromboplast Time Sodium Level 140 MEQ/L Potassium Level 4.0 MEQ/L Chloride Level 105 MEQ/L Carbon Dioxide Level 22.7 MEQ/L Anion Gap 12 MEQ/L Blood Urea Nitrogen 21 MG/DL Creatinine 1.60 MG/DL Estimat Glomerular Filtration 41 ML/MIN Rate Random Glucose 114 MG/DL Lactic Acid Level 1.7 mmol/L Calcium Level 7.9 MG/DL Magnesium Level 1.8 MG/DL Total Bilirubin 0.7 MG/DL Aspartate Amino Transf 73 U/L (AST/SGOT) Alanine Aminotransferase 22 U/L (ALT/SGPT) Alkaline Phosphatase 75 U/L Total Creatine Kinase 202 U/L Creatine Kinase MB 8.8 NG/ML Troponin I 16.80 NG/ML B-Type Natriuretic Peptide 329 PG/ML Total Protein 6.5 GM/DL Albumin 2.8 GM/DL White Blood Count 20.0 TH/MM3 Red Blood Count 4.68 MIL/MM3 Hemoglobin 12.9 GM/DL Hematocrit 38.6 % Mean Corpuscular Volume 82.5 FL Mean Corpuscular Hemoglobin 27.7 PG Mean Corpuscular Hemoglobin 33.5 % Concent Red Cell Distribution Width 15.1 % Platelet Count 327 TH/MM3 Mean Platelet Volume 7.7 FL Exceptions Acute Myocardial Infarction ASA Not Given on Arrival: Already Given by EMS MDM Medical Decision Making Medical Screen Exam Complete: Yes Emergency Medical Condition: Yes Medical Record Reviewed: Yes Interpretation(s) EKG reveals sinus tachycardia with a heart rate of 101. Wavy baseline noted. Nonspecific ST changes. EKG #2 reveals sinus tachycardia with a heart rate of 100. Q wave noted in lead 3. Last Impressions Chest X-Ray 08/16/16 0234 Signed Impressions: Service Date/Time: Tuesday, August 16, 2016 02:44 - CONCLUSION: No acute findings. Multiple findings in both lungs is similar to prior CT scan in June 2016. The findings include left lung mass, upper lobe emphysema, interstitial prominence in the lower lungs Carlos Quiñonez MD Laboratory Tests Test 08/16/16 08/16/16 02:45 04:09 Prothrombin Time 19.2 SEC Prothromb Time International 1.7 RATIO Ratio Activated Partial 49.4 SEC Thromboplast Time Sodium Level 140 MEQ/L Potassium Level 4.0 MEQ/L Chloride Level 105 MEQ/L Carbon Dioxide Level 22.7 MEQ/L Anion Gap 12 MEQ/L Blood Urea Nitrogen 21 MG/DL Creatinine 1.60 MG/DL Estimat Glomerular Filtration 41 ML/MIN Rate Random Glucose 114 MG/DL Lactic Acid Level 1.7 mmol/L Calcium Level 7.9 MG/DL Magnesium Level 1.8 MG/DL Total Bilirubin 0.7 MG/DL Aspartate Amino Transf 73 U/L (AST/SGOT) Alanine Aminotransferase 22 U/L (ALT/SGPT) Alkaline Phosphatase 75 U/L Total Creatine Kinase 202 U/L Creatine Kinase MB 8.8 NG/ML Troponin I 16.80 NG/ML B-Type Natriuretic Peptide 329 PG/ML Total Protein 6.5 GM/DL Albumin 2.8 GM/DL White Blood Count 20.0 TH/MM3 Red Blood Count 4.68 MIL/MM3 Hemoglobin 12.9 GM/DL Hematocrit 38.6 % Mean Corpuscular Volume 82.5 FL Mean Corpuscular Hemoglobin 27.7 PG Mean Corpuscular Hemoglobin 33.5 % Concent Red Cell Distribution Width 15.1 % Platelet Count 327 TH/MM3 Mean Platelet Volume 7.7 FL Differential Diagnosis Differential diagnosis includes COPD exacerbation, congestive heart failure, pleural effusion, hypoxia, lung carcinoma, acute coronary syndrome, pneumonia, bronchitis. Narrative Course IV was established, labs are drawn and sent, and the patient was placed on cardiac telemetry monitoring and continuous pulse oximetry monitoring. Patient was placed on BiPAP 12/5 at 40% as his oxygen on 7 L via nasal cannula was 83% with a good waveform. The patient states his baseline is 94% on 3 L at home. Chest x-ray was obtained. Blood cultures and lactic acid were sent to lab. The initial EKG revealed a wavy baseline, no evidence of acute STEMI. Chest x- ray reveals chronic changes including mass and emphysema. However, patient's troponin was elevated at 16.8. The patient is reevaluated, he continues to have mild shortness of breath and chest pain, therefore, was placed on heparin drip and nitroglycerin drip. Repeat EKG reveals sinus tachycardia but no significant ST elevations or depressions. Therefore, the on-call cigar packer was paged at 3:58 AM. I discussed the patient with Dr. Farmer at 4:18 AM who is aware that the patient' s troponin is 16.80, but there is no EKG findings of STEMI. He agrees with heparin drip and nitroglycerin drip and admission to PSYCHIATRIC and the medical team. The patient's primary physician is Dr. Gomez, therefore, [facility] were paged for admission. The patient will be admitted to PSYCHIATRIC. He will be kept nothing by mouth. Critical Care Narrative Aggregate critical care time was 40 minutes. Time to perform other separately billable procedures was not included in the critical care time. My time did not include minutes spent treating any other patients simultaneously or on activities that did not directly contribute to the patient's treatment. The services I provided to this patient were to treat and/or prevent clinically significant deterioration that could result in: Anoxia, hypoxia, arrhythmia, myocardial infarction, sudden . I provided critical care services requiring my management, as noted below: Chart data review, documentation time, medication orders and management, vital sign assessments/reviewing monitor data, ordering and reviewing lab tests, ordering and interpreting/reviewing x-rays and diagnostic studies, care of the patient and discussion of the patient with the admitting physicians. Physician Communication Physician Communication I discussed the patient with Dr. Farmer who agrees with admission to the medical team in PSYCHIATRIC. A call was placed the [facility] hospitalist for admission. Diagnosis Primary Impression: NSTEMI (non-ST elevated myocardial infarction) Additional Impressions: COPD with acute exacerbation Dyspnea Qualified Code: R06.00 - Dyspnea, unspecified type Admitting Information Admitting Physician Requests: Admit Condition: Stable Dennis Laws MD Aug 16, 2016 02:40
[2016-08-16] MEDS ORDERED: SODIUM CHLORIDE 0.9% FLUSH 5 ML FLUSH IVF PRN (02:45)
[2016-08-16] MEDS ORDERED: methylPREDNISolone SOD SUCC 125 MG/2 ML VIAL IVP ONE (02:45)
[2016-08-16] MEDS: RESP: ALBUTEROL 2.5 MG/IPRATROPIUM 0.5 MG NEB (SCH) INH ×2 (03:00→03:04)
[2016-08-16 03:15] LABS: APTT (PATIENT) 49.4 SEC (24.3-30.1); INTERNATIONAL NORMALIZED RATIO 1.7 RATIO; PROTHROMBIN TIME - PATIENT 19.2 SEC (9.8-11.6)
--- NOTE | 2016-08-16 03:15 | RADRPT ---
EXAM DATE/TIME: 08/16/2016 02:44 [facility] COMPARISON: CT PULMONARY ANGIOGRAM, July 04, 2016, 12:04. CHEST SINGLE AP, July 08, 2016, 11:12. INDICATIONS : Shortness of breath. MEDICAL HISTORY : Carcinoma, lung. Carcinoma, prostatic. Chronic obstructive pulmonary disease. SURGICAL HISTORY : None. ENCOUNTER: Initial ACUITY: 1 day PAIN SCORE: 0/10 LOCATION: Bilateral chest FINDINGS: Severe upper lobe emphysema and prominence of the interstitial markings in the mid and lower lungs bi laterally. There is a masslike density in the lateral left midlung measuring 1.9 cm with linear spic ulations extending to the pleural surface. This correlates with a focal opacity seen on CT pulmonary angiogram 07/04/16. Linear scarring at the right apex. Patchy areas of opacity in the medial lower lungs bilaterally similar to prior CT. Both hemidiaphragms remain well delineated. No evidence of p neumothorax. The heart is normal size. CONCLUSION: No acute findings. Multiple findings in both lungs is similar to prior CT scan in June 2016. The findings include left lung mass, upper lobe emphysema, interstitial prominence in the lower lungs Carlos Quiñonez MD on August 16, 2016 at 3:09 Board Certified Radiologist. This report was verified electronically.
[2016-08-16 03:44] LABS: ALKALINE PHOSPHATASE 75 U/L (45-117); ALT (GPT) 22 U/L (12-78); ANION GAP 12 MEQ/L (5-15); AST (GOT) 73 U/L (15-37); BICARBONATE 22.7 MEQ/L (21.0-32.0); BLOOD UREA NITROGEN 21 MG/DL (7-18); CHLORIDE 105 MEQ/L (98-107); CREATINE KINASE 202 U/L (39-308); GLOMERULAR FILTRATION RATE 41 ML/MIN (>89); MAGNESIUM 1.8 MG/DL (1.5-2.5); SODIUM (NA) 140 MEQ/L (136-145); TOTAL BILIRUBIN ADULT 0.7 MG/DL (0.2-1.0)
[2016-08-16] MEDS ORDERED: HEPARIN-D5W INJ 250 ML IV SCH (04:00)
[2016-08-16] MEDS ORDERED: HEPARIN SODIUM - IV 10,000 UNITS/10 ML VIAL IV ONE (04:00)
[2016-08-16] MEDS ORDERED: NITROGLYCERIN-DEXTROSE INJ 250 ML IV SCH (04:00)
[2016-08-16 04:05] LABS: CKMB 8.8 NG/ML (0.5-3.6)
[2016-08-16 04:18] LABS: HEMATOCRIT 38.6 % (39.0-51.0); MEAN CELL VOLUME 82.5 FL (80.0-100.0); MEAN CORPUSCULAR HEMOGLOBIN 27.7 PG (27.0-34.0); MEAN CORPUSCULAR HGB CONC 33.5 % (32.0-36.0); PLATELET COUNT 327 TH/MM3 (150-450); RED BLOOD COUNT 4.68 MIL/MM3 (4.50-5.90); RED CELL DISTRIBUTION WIDTH 15.1 % (11.6-17.2); REVIEW FLAG FINAL
[2016-08-16 04:32] LABS: APTT (PATIENT) 30.6 SEC (24.3-30.1)
[2016-08-16] MEDS ORDERED: SODIUM CHLORID 0.9% 500 ML INJ 500 ML IV ONE (05:15)
[2016-08-16] MEDS ORDERED: NALOXONE HCL 0.4 MG/ML AMP IV PRN (05:30)
[2016-08-16] MEDS ORDERED: MORPHINE SULFATE 4 MG/ML INJ IV PRN (05:30)
[2016-08-16] MEDS ORDERED: SODIUM CHLORIDE 0.9% FLUSH 5 ML FLUSH FLUSH PRN (05:30)
[2016-08-16] MEDS ORDERED: RESP: ALBUTEROL 2.5 MG/IPRATROPIUM 0.5 MG NEB (PRN) INH (05:30)
[2016-08-16] MEDS ORDERED: SODIUM CHLORIDE 0.9% FLUSH 5 ML FLUSH IV FLUSH PRN (05:30)
[2016-08-16] MEDS ORDERED: ONDANSETRON HCL 4 MG/2 ML VIAL IVP PRN (05:30)
[2016-08-16 06:02] LABS: AUTOMATED NEUTROPHIL # 19.1 TH/MM3 (1.8-7.7); HEMATOCRIT 36.2 % (39.0-51.0); LYMPH % 1.5 % (9.0-44.0); LYMPHOCYTE # 0.3 TH/MM3 (1.0-4.8); MEAN CELL VOLUME 82.7 FL (80.0-100.0); MEAN CORPUSCULAR HEMOGLOBIN 27.7 PG (27.0-34.0); MEAN CORPUSCULAR HGB CONC 33.5 % (32.0-36.0); MONO % 2.6 % (0.0-8.0); NEUT % 95.9 % (16.0-70.0); PLATELET COUNT 294 TH/MM3 (150-450); RED BLOOD COUNT 4.37 MIL/MM3 (4.50-5.90); RED CELL DISTRIBUTION WIDTH 15.1 % (11.6-17.2); WHITE BLOOD COUNT 19.9 TH/MM3 (4.0-11.0)
[2016-08-16] MEDS: D5-1/2 NS + KCL 20 MEQ INJ 1,000 ML IV SCH (06:08)
[2016-08-16 06:14] LABS: HEMO FLAGS AUTO DIFF
[2016-08-16 06:54] LABS: BANDS 10 % (0-6); NEUTROPHIL # MANUAL DIFF 19.9 TH/MM3 (1.8-7.7); PLATELET ESTIMATE SMEAR NORMAL (NORMAL); PLATELET MORPHOLOGY NORMAL (NORMAL); POLYS (SEG NEUTROPHILS) 90 % (16-70); SCAN/DIFF FINAL DIFF MANUAL; WBC DIFF SAMPLE 100
[2016-08-16] MEDS ORDERED: SODIUM CHLOR 0.9% 1000 ML INJ 1,000 ML IV SCH ×2 (07:47→12:46)
[2016-08-16] MEDS ORDERED: SODIUM CHLORIDE 0.9% FLUSH 5 ML FLUSH IV FLUSH SCH (09:00)
[2016-08-16] MEDS: SODIUM CHLORIDE 0.9% FLUSH 5 ML FLUSH FLUSH SCH ×2 (09:25→20:49)
[2016-08-16] MEDS: PANTOPRAZOLE SODIUM 40 MG VIAL IV SCH (09:25)
[2016-08-16] MEDS: ASPIRIN EC 81 MG TABEC PO SCH (09:25)
[2016-08-16] MEDS ORDERED: HEPARIN SODIUM - IV 10,000 UNITS/10 ML VIAL IV PRN ×2 (10:00)
[2016-08-16 10:44] LABS: INTERNATIONAL NORMALIZED RATIO 1.4 RATIO; PROTHROMBIN TIME - PATIENT 16.2 SEC (9.8-11.6)
--- NOTE | 2016-08-16 10:44 | MH ---
cc: ADRIAN PURCELL MD DATE OF ADMISSION: 08/16/2016 DATE OF : 1930 CHIEF COMPLAINT Shortness of breath. HISTORY OF TRAVEL IN THE LAST 30 DAYS None. HISTORY OF PRESENT ILLNESS This is a pleasant 85-year-old white male who has complained of increased shortness of breath for the past few weeks. He does use O2 at home and is very aware of how to adjust his oxygen level to maintain his O2 sat between 90 and 94. He does note for no apparent reason the shortness of breath has continued to increase, becoming worse over the last three or four days. The patient also notes midsternal chest pain over the last week to 10 days which has continued to increase in intensity last p.m. The patient denies any acute shortness of breath and states that the pain radiates into his neck and jaw. He does not note any numbness or tingling in his extremities. The patient is positive for a nonproductive cough. He was treated for pneumonia back in April and June but states that he has had no fever, no chills, no body aches since that time. The patient was given aspirin and nitroglycerin on arrival from EMS but it did not alleviate his chest pain. Currently the patient denies any nausea, vomiting, abdominal pain. No headache. No diarrhea or constipation. The patient does note a normal bowel movement this morning. His appetite has been normal. He does admit to some weight loss over the past year. The patient does have a history of lung cancer and started treatment approximately five years ago. He does have a waistband setter lockstitch, Dr. Siegel, who patient states he has been in remission. While describing the chest pain he describes it as a pressure sensation as well as a tightness that wraps around his chest. EKG was just performed in the room with no acute ST elevation noted. PAST MEDICAL HISTORY 1. Depression. 2. Lung cancer. 3. Cardiovascular disease. 4. Hyperlipidemia. 5. COPD. 6. Hard of hearing. 7. Hypertension. 8. Thyroid disease. PAST SURGICAL HISTORY 1. Hernia repair. 2. Bilateral carotid endarterectomy. ALLERGIES PRILOSEC. MEDICATIONS Medications reported: 1. Symbicort. 2. Spiriva inhaler. 3. Breo inhaler. 4. Levothyroxine. 5. Lovastatin. 6. Amlodipine. 7. Prednisone. 8. Antacids p.r.n. SOCIAL HISTORY The patient is , currently lives with his . He was a former smoker but quit approximately seven years ago. Denies any alcohol or illicit drug use. FAMILY HISTORY None. Both parents of old age. REVIEW OF SYSTEMS A 12-point review was done. All positives noted in the HPI which include chest pain, shortness of breath with generalized weakness and a nonproductive cough. Otherwise systems are unremarkable or negative. PHYSICAL EXAMINATION GENERAL: A thin, well-nourished white male who looks to be his stated age resting in the bed. He currently has no facial grimace and appears to be pain free. VITAL SIGNS: Temperature 97.9, pulse 80, respirations 17, blood pressure 106/55. When first admitted to the ER blood pressure was 112/60. O2 sat 96 on five liters. HEENT: Atraumatic, normocephalic. PERRLA. No scleral icterus. No drainage or discharge. [place] mucous membranes. NECK: Thin, supple. No JVD. CARDIOVASCULAR: Regular rate and rhythm. Soft systolic murmur at the lower left sternal border. PULMONARY: Low air volumes. Diminished breath sounds posteriorly in his mid to lower lobes. Occasional rhonchi. Productive thick white sputum. ABDOMEN: Flat, soft, nontender, nondistended. Active bowel sounds in all four quadrants. : Clear yellow urine noted in urinal. EXTREMITIES: He moves all extremities with purpose. He has no edema. Pulses are intact. 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 NEUROLOGIC: He is awake, alert, a good historian. Speech is clear. PSYCHIATRIC: Appropriate mood and affect. Judgment is normal. LABORATORY DATA WBC count 19.9, RBC 4.37, hemoglobin 12.1, hematocrit 36.2, platelet count 294, neutrophil auto count 95.9, lymphocytes 1.5 percentage auto count. INR is 1.7. Chemistry: Sodium 140, potassium 4, chloride 105, carbon dioxide 22.7, anion gap 12, BUN 21, creatinine 1.6, GFR 41, random glucose 114, lactic acid 1.7, calcium 7.9, AST 73. First troponin was 16.8, second troponin 14.8. BNP 329. Albumin 2.8, total protein 6.5. IMAGING DATA Chest x-ray: Multiple findings in lungs that are similar to the CT that was done in June 2016. Findings of a left lung mass, lower lobe emphysema, interstitial prominence of the lower lungs. ASSESSMENT 1. Non-ST elevation myocardial infarction. 2. COPD exacerbation with dyspnea. 3. Hypoxemia. 4. Leukocytosis, rule out pneumonia our infectious event. 5. Anemia. 6. Hypertension. PLAN 1. Admit inpatient due to the multiple systems that are affected. 2. Will monitor his lab work and his vital signs for any abnormals in temperature, pulse, blood pressure or respiration. 3. Gentle hydration. 4. Intake and output. 5. Cardiac monitoring. 6. 2-D echo pending results. 7. Will consult cardiology for their expert opinion. Currently the patient is being maintained n.p.o. for possible further cardiac testing today. 8. Will reconcile his medications. 9. O2 therapy. PLAN 1. Initially our plan is to follow-up and rule out any type of cardiac event while stabilizing his hypoxia. 2. Currently the patient is full code, full aggressive care. 3. DVT prophylaxis with heparin. 4. PUD prophylaxis with Protonix. 5. The patient is also on 81 mg aspirin per day. 6. Pain management with morphine and nitroglycerin. 7. We will follow. Dictated by: NATHAN Morelos MD THERESE Ahuja/FABIANO /8:49 AM /10:44 AM seen and examined by myself,Dr Purcell , On 08/16/16 Cardiac catheterization report noted Patient will need coronary bypass surgery discussed with nurse Discussed with patient Discussed with mid-level practitioner The exam, history, and the medical decision-making described in the above note were completed with the assistance of the mid-level provider. I reviewed the findings presented. I attest that I had a [id number] encounter with the patient on the same day, and personally performed and documented my assessment and findings in the medical record. LILI
--- NOTE | 2016-08-16 10:59 | MB ---
cc: CARLOS TRIPATHI DATE OF CONSULTATION: 08/16/2016 REASON FOR CONSULTATION Non-ST elevation NM. HISTORY OF PRESENT ILLNESS This is an 85-year-old gentleman who presented to the emergency department with chest pain and shortness of breath. He states that over the course of about one week he has had progressive dyspnea. Last night around 8:00 p.m. he developed a substernal chest pain that wraps around the anterior aspect of his chest. No radiation to the shoulder, back her jaw. He did have associated shortness of breath with that. He states he has had two bouts of pneumonia over the course of the past three months. He follows with Dr. Siegel of pulmonology. He came into the emergency department due to the progressive symptoms around 2:00 in the morning. His initial electrocardiogram had some mild ST depression. He continued to have chest pain and was started on a nitroglycerin drip. His initial troponin came back elevated at 16. He was started on a heparin drip. He is currently having 1/10 chest pain but much more comfortable than previous. He had been on some BiPAP overnight but now breathing is much improved. He has no prior history of known heart disease, never had a heart catheterization in the past. PAST MEDICAL HISTORY 1. History of prostate and lung cancer. 2. Hyperlipidemia. 3. COPD. 4. Hypertension. 5. Hernia repair. ALLERGIES PRILOSEC. SOCIAL HISTORY Denies any alcohol use or drug use. He is a prior smoker. MEDICATIONS Home medications: 1. Symbicort. 2. Spiriva. 3. Levothyroxine. 4. Lovastatin. 5. Amlodipine. REVIEW OF SYSTEMS A 12-point review of systems was performed and negative unless otherwise noted in the history of present illness. PHYSICAL EXAMINATION VITAL SIGNS: Temperature normal, pulse 80, blood pressure 106/55 mmHg. GENERAL: Alert and oriented x3. No acute distress. HEENT: Pupils reactive to light and accommodation. Extraocular movements are intact. NECK: No jugular venous distention. No thyromegaly. No lymphadenopathy. No carotid bruits. LUNGS: Clear to auscultation bilaterally. Decreased breath sounds throughout. End-expiratory wheeze. CARDIOVASCULAR: Regular rate and rhythm, 2/6 systolic murmur left sternal border. ABDOMEN: Nontender, nondistended. Good bowel sounds. No hepatosplenomegaly. EXTREMITIES: No clubbing, cyanosis or edema. Good peripheral pulses. NEUROLOGIC: Cranial nerves intact. Motor and sensory grossly intact. LABORATORY DATA WBC 19.9, platelet count 294, hemoglobin 12.1. INR was 1.7 yesterday. Sodium 140, potassium 4.8, chloride 105, bicarb 22, BUN 21, creatinine 1.60. Troponin 16.8. BNP 329. ELECTROCARDIOGRAM Electrocardiogram: Sinus rhythm. ST depression anterolateral leads. ASSESSMENT 1. Non-ST elevation NM. 2. COPD. 3. Hypertension. 4. Hyperlipidemia. 5. Recent pneumonia. PLAN Despite nitroglycerin and a heparin drip the patient still has some mild chest pain symptoms. His electrocardiogram has normalized. Elevated troponin confirms acute coronary syndrome. His WBC count is elevated but he has been previously on steroids. He has had a longstanding cough, does not look to be actively infected with no infiltrates on x-ray at this time. Given his ongoing symptoms will need to take him to the cardiac catheterization lab to evaluate for obstructive coronary disease. Will gently hydrate him given his elevated creatinine and try to minimize contrast as possible. Will obtain a 2-D echocardiogram and continue medical therapy. MD AD Luong/FABIANO /7:46 AM /10:47 AM
[2016-08-16 11:23] LABS: APTT (PATIENT) GREATER THAN 153.4 SEC (24.3-30.1)
[2016-08-16] MEDS ORDERED: HEPARIN SODIUM - IV 10,000 UNITS/10 ML VIAL ONE (11:58)
[2016-08-16] MEDS ORDERED: HEPARIN-NS/PF INJ 500 ML ONE (11:58)
--- NOTE | 2016-08-16 12:01 | EC ---
Study Study Date:08/16/2016 STUDY CONCLUSIONS SUMMARY - Left ventricle: The cavity size was normal. Wall thickness was normal. Systolic function was normal. The estimated ejection fraction was in the range of 55% to 60%. Hypokinesis of the inferior myocardium. - Aortic valve: Valve area: 2.69cm^2 (Vmax). - Tricuspid valve: Mild regurgitation. - Pulmonary arteries: PA peak pressure: 33mm Hg (S). If LV function is below 40, please consider prescribing an ACEI or ARB or document rationale for non-use. PROCEDURE DATA STUDY STATUS: Elective. Procedure: Transthoracic echocardiography. Image quality was good. Scanning was performed from the parasternal, apical, and subcostal acoustic windows. Study completion: The patient tolerated the procedure well. Transthoracic echocardiography. M-mode, complete 2D, complete spectral Doppler, and color Doppler. Height: Height: 65in. Weight: Weight: 140.7lb. Body mass index: BMI: 23.5kg/m^2. Body surface area: BSA: 1.71m^2. Patient status: Inpatient. CARDIAC ANATOMY LEFT VENTRICLE: The cavity size was normal. Wall thickness was normal. Systolic function was normal. The estimated ejection fraction was in the range of 55% to 60%. Regional wall motion abnormalities: Hypokinesis of the inferior myocardium. AORTIC VALVE: Trileaflet; normal thickness leaflets. Doppler: Transvalvular velocity was within the normal range. There was no stenosis. No regurgitation. Valve area: 2.69cm^2 (Vmax). Indexed valve area: 1.57cm^2/m^2 (Vmax). AORTA: Aortic root: The aortic root was normal in size. MITRAL VALVE: Structurally normal valve. Doppler: Transvalvular velocity was within the normal range. There was no evidence for stenosis. Trace regurgitation. LEFT ATRIUM: The atrium was normal in size. RIGHT VENTRICLE: The cavity size was normal. Wall thickness was normal. PULMONIC VALVE: Doppler: Transvalvular velocity was within the normal range. There was no evidence for stenosis. No regurgitation. TRICUSPID VALVE: Structurally normal valve. Doppler: Transvalvular velocity was within the normal range. Mild regurgitation. PULMONARY ARTERY: The main pulmonary artery was normal-sized. Systolic pressure was within the normal range. RIGHT ATRIUM: The atrium was normal in size. PERICARDIUM: There was no pericardial effusion. SYSTEMIC VEINS: Inferior vena cava: The vessel was normal in size. Patient weight: 140.7lb _Ejection fraction:_ 65-75% _Fractional shortening:_ 32% up to 5Kg 5-11.5Kg 11.6-22.9Kg 23-45Kg 45-57Kg Aortic Root 7-13 <17 13-22 17-27 17-27 LA diam 6-13 <23 24-38 33-47 37-40 RVID 10-17 7-15 7-15 7-18 8-17 LVIDd 12-22 <32 24-38 33-47 37-40 LVPW 2-4 3-6 5-7 6-8 7-8 IVS 2-4 3-6 5-7 6-8 7-8 BASIC MEASUREMENTS ADULT NORMAL Left ventricle LV internal dimension, ED, chordal 45.5 mm 43-52 level, PLAX LV internal dimension, ES, chordal 34.2 mm 23-38 level, PLAX Fractional shortening, chordal level, *25 % >29 PLAX LV posterior wall thickness, ED 9.17 mm IVS/LVPW ratio, ED 1.12 <1.3 Ventricular septum Septal thickness, ED 10.3 mm Aortic valve Leaflet separation 15 mm 15-26 BASIC MEASUREMENTS ADULT NORMAL Aortic valve Leaflet separation 15 mm 15-26 Aorta Root diameter, ED 28 mm 20-37 Left atrium Anterior-posterior dimension, ES 34 mm 19-40 Anterior-posterior dimension index, ES 1.99 cm/m^2 <2.2 LA/aortic root ratio 1.21 DOPPLER MEASUREMENTS ADULT NORMAL Main pulmonary artery Pressure, S *33 mm Hg =30 Aortic valve Peak velocity, S 85.8 cm/s Valve area, Vmax 2.69 cm^2 Valve area index, Vmax 1.57 cm^2/m^2 Mitral valve Peak E-wave velocity 67.6 cm/s Peak A-wave velocity 93.3 cm/s Deceleration time 169 ms 150-230 Peak E/A ratio 0.7 Tricuspid valve Regurgitant peak velocity 225 cm/s Peak RV-RA gradient, S 20 mm Hg Maximal regurgitant velocity 225 cm/s Systemic veins Estimated CVP 10 mm Hg Right ventricle RV pressure, S *41 mm Hg <30 Pulmonic valve Peak velocity, S 143 cm/s LEGEND: Mean values are shown as u=mean value. Asterisk (*) bliss values outside specified normal range. Prepared and signed by Elvin Farmer [id number]
[2016-08-16] MEDS ORDERED: MIDAZOLAM HCL 2 MG/2 ML VIAL ONE (12:16)
[2016-08-16] MEDS ORDERED: IOHEXOL 350 MG/ML 50 ML BTL (for Cath Lab) OTHER ONE (12:19)
[2016-08-16] MEDS ORDERED: MISC INFORMATION XX ONE (13:00)
[2016-08-16] MEDS ORDERED: BACITRACIN OINT 0.9 GM PKT TOP ONE (13:00)
--- NOTE | 2016-08-16 15:16 | MA ---
cc: ELVIN TRIPATHI DATE: 08/16/2016 INDICATION Non-ST elevation ID. TRANSCRIPTION SPECIALIST Elvin Tripathi MD, [facility] PROCEDURE PERFORMED 1. Fluoroscopy with interpretation. 2. Coronary angiography. 3. Left heart catheterization. TOTAL CONTRAST ADMINISTERED 24 cc. METHOD The risks, benefits and alternatives were discussed with the patient. The patient understood and consented to the procedure. The patient was brought to the catheterization lab and placed on the catheterization table. The right wrist was prepped and draped in a sterile fashion. The right wrist was anesthetized with 2% lidocaine. The right radial artery was cannulated. A 6-[place], 7 cm center sheath was placed without difficulty. LEFT HEART CATHETERIZATION A 6-[place] JR5 catheter was advanced across the aortic valve without difficulty. Intraventricular hemodynamics measured at 108/15 mmHg. CORONARY ANGIOGRAPHY The left coronary circulation was selectively engaged with a 6-[place] JL3.5 catheter. The right coronary circulation was selectively engaged with a 6-[place] JR5 catheter. CORONARY ANATOMY 1. The left main coronary is angiographically normal. 2. The left anterior descending coronary artery has a 75% tubular stenosis proximally. There are some minor luminal irregularities to the remainder of the left anterior descending and diagonal branches and is widely patent. 3. The circumflex is occluded proximally and there are no collaterals visualized. 4. The right coronary is a dominant vessel giving rise to a posterior descending branch. The mid right coronary is 95% stenotic. The posterior descending and posterolateral branches are widely patent. CONCLUSIONS 1. 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 2. Normal left-sided filling pressures. PLAN Given his multivessel disease will plan for surgical consultation. He may still have a potential marginal branch for grafting that might be visualized surgically. At this point he is chest pain free and may have already completed his circumflex infarct territory. Will see if he is a good surgical candidate. If he is not a surgical candidate we may consider percutaneous intervention of the left anterior descending and right coronary arteries and medically manage the circumflex. Regardless, given his elevated creatinine this would not been an ideal time to proceed forward with any attempt at percutaneous intervention. Therefore, will consult Dr. Barnhart for his opinion for surgical candidacy. Elvin Tripathi MD /FABIANO /12:52 PM /3:02 PM
--- NOTE | 2016-08-16 15:22 | PD.CAR.PN ---
CVT Progress Note Subjective/Hospital Course: sts data discussed with pt RISK SCORES About the STS Risk Calculator Procedure: CAB Only Risk of Mortality: 10.572% Morbidity or Mortality: 37.375% Long Length of Stay: 21.562% Short Length of Stay: 15.578% Permanent Stroke: 1.8% Prolonged Ventilation: 23.884% DSW Infection: 0.631% Renal Failure: 15.605% Reoperation: 14.797 Objective: Vital Signs Date Time Temp Pulse Resp B/P Pulse Ox O2 Delivery O2 Flow Rate FiO2 08/16/16 10:15 74 17 110/64 97 Nasal Cannula 5 08/16/16 09:15 77 17 104/60 95 Nasal Cannula 5 08/16/16 08:59 97 Nasal Cannula 6.00 08/16/16 08:15 75 18 106/58 96 Nasal Cannula 5 08/16/16 07:15 80 17 106/55 96 Nasal Cannula 5 08/16/16 06:43 83 17 111/61 97 Nasal Cannula 5 08/16/16 06:03 97 Nasal Cannula 6 08/16/16 06:00 84 18 108/59 97 Nasal Cannula 6 08/16/16 05:26 86 18 105/57 94 Nasal Cannula 6 08/16/16 05:14 86 20 112/60 95 Nasal Cannula 6 08/16/16 05:04 84 20 110/60 94 Nasal Cannula 6 08/16/16 04:53 89 19 94/57 99 BiPAP 08/16/16 04:53 89 18 101/61 93 Nasal Cannula 6 08/16/16 04:40 90 18 105/59 98 BiPAP 08/16/16 04:35 90 18 101/55 100 BiPAP 08/16/16 04:30 93 20 105/56 99 BiPAP 08/16/16 04:20 94 20 158/125 99 BiPAP 08/16/16 03:08 98 96 08/16/16 02:28 97.9 136 30 133/63 90 Labs: Laboratory Tests Test 08/16/16 08/16/16 08/16/16 08/16/16 04:09 05:50 10:15 10:32 White Blood Count 20.0 TH/MM3 19.9 TH/MM3 (4.0-11.0) (4.0-11.0) Red Blood Count 4.68 MIL/MM3 4.37 MIL/MM3 (4.50-5.90) (4.50-5.90) Hemoglobin 12.9 GM/DL 12.1 GM/DL (13.0-17.0) (13.0-17.0) Hematocrit 38.6 % 36.2 % (39.0-51.0) (39.0-51.0) Mean Corpuscular Volume 82.5 FL 82.7 FL (80.0-100.0) (80.0-100.0) Mean Corpuscular Hemoglobin 27.7 PG 27.7 PG (27.0-34.0) (27.0-34.0) Mean Corpuscular Hemoglobin 33.5 % 33.5 % Concent (32.0-36.0) (32.0-36.0) Red Cell Distribution Width 15.1 % 15.1 % (11.6-17.2) (11.6-17.2) Platelet Count 327 TH/MM3 294 TH/MM3 (150-450) (150-450) Mean Platelet Volume 7.7 FL 7.9 FL (7.0-11.0) (7.0-11.0) Activated Partial 30.6 SEC GREATER THAN Thromboplast Time (24.3-30.1) 153.4 SEC (24.3-30.1) Neutrophils (%) (Auto) 95.9 % (16.0-70.0) Lymphocytes (%) (Auto) 1.5 % (9.0-44.0) Monocytes (%) (Auto) 2.6 % (0.0-8.0) Eosinophils (%) (Auto) 0.0 % (0.0-4.0) Basophils (%) (Auto) 0.0 % (0.0-2.0) Neutrophils # (Auto) 19.1 TH/MM3 (1.8-7.7) Lymphocytes # (Auto) 0.3 TH/MM3 (1.0-4.8) Monocytes # (Auto) 0.5 TH/MM3 (0-0.9) Eosinophils # (Auto) 0.0 TH/MM3 (0-0.4) Basophils # (Auto) 0.0 TH/MM3 (0-0.2) CBC Comment AUTO DIFF Differential Total Cells 100 Counted Neutrophils % (Manual) 90 % (16-70) Band Neutrophils % 10 % (0-6) Neutrophils # (Manual) 19.9 TH/MM3 (1.8-7.7) Differential Comment FINAL DIFF MANUAL Platelet Estimate NORMAL (NORMAL) Platelet Morphology Comment NORMAL (NORMAL) Red Cell Morphology Comment NORMAL (NORMAL) Total Creatine Kinase 161 U/L (39-308) Troponin I 14.80 NG/ML (0.02-0.05) Prothrombin Time 16.2 SEC (9.8-11.6) Prothromb Time International 1.4 RATIO Ratio Blood Type O POSITIVE Antibody Screen NEGATIVE Blood Bank Comment Result Diagram: 08/16/16 0550 08/16/16 0245 Mary Ritchie Aug 16, 2016 15:22
--- NOTE | 2016-08-16 18:25 | MB ---
cc: CAMILLE GALEAS MD DATE OF CONSULTATION: 08/16/2016. HISTORY OF PRESENT ILLNESS: 85-year-old patient of Dr. Gomez, Dr Manuel Bell and also Dr. Farmer who has chronic severe emphysema and COPD. He uses home oxygen at 3 liters to keep his saturations about 94% continuously. He has been using the oxygen for about eight months after having two bouts of pneumonia, once in April and then once in June. He has had however increasing shortness of breath over the last couple of days also noted some mid-sternal chest pain for the last week or so that continued to increase in intensity. He presented to the emergency room with acute shortness of breath and chest pain radiating to his neck and jaw. He has a chronic cough. They found that he had elevated troponins of 16.8 with some sinus tachycardia, S-T depression in the anterolateral leads and was ruled out for a NSTEMI, underwent cardiac catheterization today showed an ejection fraction of 55% proximal left anterior descending 75%, mid to distal left anterior descending 20%, diagonal 20%, circumflex 100% stenosed and right coronary artery 95%. We were consulted to evaluate for coronary artery bypass grafting however the patient has multiple comorbidities to include severe COPD and emphysema. He did undergo pulmonary function tests which did show an FEV-1 of 1.75. The FEV-1 1% of 55, chronic O2 use of 3 liters continuously to maintain sats greater than 92%, history of invasive poorly differentiated [id number] lung CA done by lung biopsy left lung apparently had two masses showed invasive poorly differentiated non-small lung CA. The patient was followed by Dr. Pablo and underwent radiation therapy, last radiation was 3 years ago. He last saw Dr. Pablo he said a month ago I have the last report that was written in December of 2015 which showed no evidence of new disease. However in June 2016, the patient did have a CTA to rule out a PE. There were findings of diagnostic aspiration of fluid in the right lower lobe, right lower lobe segmental bronchi, small effusions 11 mm left lower lobe pulmonary nodule and left midlung. Other history includes depression, hyperlipidemia mylv-bn-gutgams hypertension, thyroid disease and he has also had history of prostate cancer with radiation. Surgeries including hernia repair, bilateral carotid endarterectomies, lung biopsy 2012 where he had a post pneumothorax and he had a chest tube placed at that time. ALLERGIES: PRILOSEC. HOME MEDICATIONS: 1. Symbicort. 2. Spiriva. 3. Brio inhaler. 4. Levothyroxine. 5. Lovastatin. 6. Amlodipine. 7. Prednisone. 8. The patient is on chronic oxygen at 3 liters. FAMILY HISTORY: Both parents from old age. SOCIAL HISTORY: . Smoked for 50 years, quit seven years ago. Smoked one pack per day. No alcohol or illicit drugs. Has two children. 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 REVIEW OF SYSTEMS: As above in the history of present illness, other twelve systems unremarkable. However he has had a recent ten pound weight loss since his pneumonia back in June. PHYSICAL EXAMINATION: GENERAL: On exam this is very thin appearing male stated age. The patient is awake and alert and in no acute distress. VITAL SIGNS: Blood pressure 110/70, heart rate 74, respiratory rate of 18. HEAD, EYES, EARS, NOSE, THROAT: Head is normocephalic, atraumatic. Pupils equal and reactive. Oral mucosa pink, moist. NECK: The neck is supple. He has got two well-healed scars on his neck. HEART: Heart sounds S1-S2, soft systolic murmur left sternal border. LUNGS: Very diminished in the basis with occasional rhonchi. ABDOMEN: Abdomen is flat, soft, nontender. Active bowel sounds. EXTREMITIES: Reveal no cyanosis, clubbing or edema. NEUROLOGIC: Alert and oriented times three with no focal deficits. LAB WORK: Lab work shows hemoglobin 12, hematocrit 26, white cell count 19, platelet count 294,000. Sodium 140, potassium 4.0, BUN 21, creatinine 1.60, magnesium level 1.8. Troponin was 16, BNP of 329. INR 1.4. Blood cultures pending. IMAGING STUDIES: Chest x-ray shows multiple findings in both lungs similar to the prior CT scan June of 2016 including left lung mass upper lobe emphysema and interstitial prominence of the lower lungs. IMPRESSION: This is an 85-year-old male ruled in for a NSTEMI with multivessel disease including 75% proximal LAD, 100% stenosis of the circumflex, 95% stenosed right coronary artery and ejection fraction of 55%; however, the patient's comorbidities are very high. His risk of mortality is 10.5, morbidity/mortality 37, prolonged ventilation 23%, renal failure 15%, reoperation 15%. At this time, risk factors will be discussed between Dr. Galeas and Dr. Farmer to evaluate for possible need for high-risk percutaneous coronary intervention versus of coronary artery bypass grafting related to this gentleman's high morbidity and risk factors. Further planning per Dr. Camille Galeas. Dictated by NATHAN Maria. Camille LOCKHART/CAMRON /3:24 PM /1:29 PM
--- NOTE | 2016-08-16 19:08 | EKG ---
Date Performed: 08/16/2016 Time Performed: 07:51:22 PTAGE: 85 years EKG: Sinus rhythm LEFT ANTERIOR FASCICULAR BLOCK ABNORMAL ECG PREVIOUS TRACING : 08/16/2016 07.50 Compared to prior tracing no significant change DOCTOR: Len Best Interpretating Date/Time 08/16/2016 19:07:29
--- NOTE | 2016-08-16 19:18 | EKG ---
Date Performed: 08/16/2016 Time Performed: 03:57:54 PTAGE: 85 years EKG: SINUS TACHYCARDIA MARKED LEFT AXIS DEVIATION ABNORMAL ECG INTERPRETATION BASED ON A DEFAULT AGE OF 40 YEARS PREVIOUS TRACING : 08/16/2016 02.44 Compared to prior tracing no significant change DOCTOR: Len Best Interpretating Date/Time 08/16/2016 19:17:10
--- NOTE | 2016-08-16 19:21 | EKG ---
Date Performed: 08/16/2016 Time Performed: 02:44:01 PTAGE: 85 years EKG: SINUS TACHYCARDIA MARKED LEFT AXIS DEVIATION MILD ST DEPRESSION ABNORMAL ECG PREVIOUS TRACING : 07/04/2016 10.19 Compared to the previous tracing, ST depressions may be mor e prominent DOCTOR: Len Best Interpretating Date/Time 08/16/2016 19:21:04
[2016-08-16] MEDS: ATORVASTATIN 40 MG TAB PO SCH (20:49)
[2016-08-17] VITALS (24 sets, daily range): BP systolic 93–114; BP diastolic 53–64; PULSE 66–82; RESP 16–18; TEMP 96.7–97.7; O2SAT 95–98
[2016-08-17 04:45] LABS: AUTOMATED NEUTROPHIL # 17.5 TH/MM3 (1.8-7.7); BASOPHIL % 0.1 % (0.0-2.0); HEMATOCRIT 35.3 % (39.0-51.0); HEMO FLAGS DIFF FINAL; LYMPH % 2.9 % (9.0-44.0); LYMPHOCYTE # 0.5 TH/MM3 (1.0-4.8); MEAN CORPUSCULAR HEMOGLOBIN 27.3 PG (27.0-34.0); MEAN CORPUSCULAR HGB CONC 33.3 % (32.0-36.0); MONO % 4.5 % (0.0-8.0); NEUT % 92.5 % (16.0-70.0); PLATELET COUNT 276 TH/MM3 (150-450); RED CELL DISTRIBUTION WIDTH 15.8 % (11.6-17.2)
[2016-08-17 05:17] LABS: BICARBONATE 20.3 MEQ/L (21.0-32.0); POTASSIUM 4.6 MEQ/L (3.5-5.1)
[2016-08-17] MEDS: D5-1/2 NS + KCL 20 MEQ INJ 1,000 ML IV SCH (06:01)
--- NOTE | 2016-08-17 08:29 | PD.CAR.PN ---
CVT Progress Note Subjective/Hospital Course: Agree that patient is best served with a percutaneous strategy, given his h/o radiation and lung/prostate cancer. High risk for sternal malunion and dehiscence in the setting of radiated field. Thanks for allowing me to participate in the care of this very pleasant patient. Objective: Vital Signs Date Time Temp Pulse Resp B/P Pulse Ox O2 Delivery O2 Flow Rate FiO2 08/17/16 07:00 67 08/17/16 06:18 68 08/17/16 05:00 70 08/17/16 04:00 70 08/17/16 03:40 68 08/17/16 03:36 97.6 68 102/55 97 08/17/16 02:00 70 08/17/16 01:00 66 08/17/16 00:32 97.3 68 93/53 95 08/17/16 00:00 68 08/16/16 23:00 65 08/16/16 22:00 70 08/16/16 21:00 80 08/16/16 20:57 93 Nasal Cannula 2.00 08/16/16 20:00 70 08/16/16 19:00 96.5 68 108/62 96 08/16/16 19:00 74 08/16/16 18:00 70 08/16/16 17:00 68 08/16/16 16:00 75 08/16/16 15:30 73 08/16/16 15:00 98.7 73 20 104/62 95 08/16/16 10:15 74 17 110/64 97 Nasal Cannula 5 08/16/16 09:15 77 17 104/60 95 Nasal Cannula 5 08/16/16 08:59 97 Nasal Cannula 6.00 Labs: Laboratory Tests Test 08/17/16 03:46 White Blood Count 19.0 TH/MM3 (4.0-11.0) Red Blood Count 4.30 MIL/MM3 (4.50-5.90) Hemoglobin 11.8 GM/DL (13.0-17.0) Hematocrit 35.3 % (39.0-51.0) Mean Corpuscular Volume 82.0 FL (80.0-100.0) Mean Corpuscular Hemoglobin 27.3 PG (27.0-34.0) Mean Corpuscular Hemoglobin 33.3 % Concent (32.0-36.0) Red Cell Distribution Width 15.8 % (11.6-17.2) Platelet Count 276 TH/MM3 (150-450) Mean Platelet Volume 8.0 FL (7.0-11.0) Neutrophils (%) (Auto) 92.5 % (16.0-70.0) Lymphocytes (%) (Auto) 2.9 % (9.0-44.0) Monocytes (%) (Auto) 4.5 % (0.0-8.0) Eosinophils (%) (Auto) 0.0 % (0.0-4.0) Basophils (%) (Auto) 0.1 % (0.0-2.0) Neutrophils # (Auto) 17.5 TH/MM3 (1.8-7.7) Lymphocytes # (Auto) 0.5 TH/MM3 (1.0-4.8) Monocytes # (Auto) 0.9 TH/MM3 (0-0.9) Eosinophils # (Auto) 0.0 TH/MM3 (0-0.4) Basophils # (Auto) 0.0 TH/MM3 (0-0.2) CBC Comment DIFF FINAL Differential Comment Sodium Level 140 MEQ/L (136-145) Potassium Level 4.6 MEQ/L (3.5-5.1) Chloride Level 108 MEQ/L (98-107) Carbon Dioxide Level 20.3 MEQ/L (21.0-32.0) Anion Gap 12 MEQ/L (5-15) Blood Urea Nitrogen 31 MG/DL (7-18) Creatinine 1.48 MG/DL (0.60-1.30) Estimat Glomerular Filtration 45 ML/MIN (>89) Rate Random Glucose 126 MG/DL (74-106) Calcium Level 8.3 MG/DL (8.5-10.1) Result Diagram: 08/17/16 0346 08/17/16 0346 Eddie Barnhart MD Aug 17, 2016 08:29
[2016-08-17] MEDS: SODIUM CHLORIDE 0.9% FLUSH 5 ML FLUSH FLUSH SCH ×2 (09:20→20:59)
[2016-08-17] MEDS: PANTOPRAZOLE SODIUM 40 MG VIAL IV SCH (09:20)
[2016-08-17] MEDS: ASPIRIN EC 81 MG TABEC PO SCH (09:20)
--- NOTE | 2016-08-17 16:38 | HHI.PR ---
Subjective Subjective Remarks no chest pain no sob alert, asking questions about plan of care. appetite fair. (Kassy Granger) Review of Systems Constitutional Constitutional: Weakness Constitutional Remarks 10 point ROS done, generalized weakness, exertional SOB otherwise negative ( Kassy Granger) Pulmonary Respiratory: Shortness of Breath (Kassy Granger) Musculoskeletal MS: Weakness (Kassy Granger) Psychiatric Psychiatric: Normal Mood (Kassy Granger) Vitals/Results Intake & Output 08/16/16 08/16/16 08/17/16 15:00 23:00 07:00 Intake Total 640 ml Output Total 575 ml Balance 65 ml Intake Oral 240 ml IV Total 400 ml Output Urine Total 575 ml Vital Signs Vital Signs Date Time Temp Pulse Resp B/P Pulse Ox O2 Delivery O2 Flow Rate FiO2 08/17/16 15:00 97.6 72 18 114/64 96 08/17/16 14:00 80 08/17/16 13:00 82 08/17/16 12:16 96 08/17/16 12:00 74 08/17/16 11:00 96.7 80 18 111/53 97 08/17/16 11:00 75 08/17/16 10:00 78 08/17/16 09:00 79 08/17/16 08:00 97.0 68 18 109/58 98 08/17/16 08:00 68 08/17/16 07:00 67 08/17/16 06:18 68 08/17/16 05:00 70 08/17/16 04:00 70 08/17/16 03:40 68 08/17/16 03:36 97.6 68 102/55 97 08/17/16 02:00 70 08/17/16 01:00 66 08/17/16 00:32 97.3 68 93/53 95 08/17/16 00:00 68 08/16/16 23:00 65 08/16/16 22:00 70 08/16/16 21:00 80 08/16/16 20:57 93 Nasal Cannula 2.00 08/16/16 20:00 70 08/16/16 19:00 96.5 68 108/62 96 08/16/16 19:00 74 08/16/16 18:00 70 08/16/16 17:00 68 (Kassy Granger) CBC/BMP: 08/17/16 0346 08/17/16 0346 Lab Results Laboratory Tests Test 08/17/16 03:46 White Blood Count 19.0 TH/MM3 Red Blood Count 4.30 MIL/MM3 Hemoglobin 11.8 GM/DL Hematocrit 35.3 % Mean Corpuscular Volume 82.0 FL Mean Corpuscular Hemoglobin 27.3 PG Mean Corpuscular Hemoglobin 33.3 % Concent Red Cell Distribution Width 15.8 % Platelet Count 276 TH/MM3 Mean Platelet Volume 8.0 FL Neutrophils (%) (Auto) 92.5 % Lymphocytes (%) (Auto) 2.9 % Monocytes (%) (Auto) 4.5 % Eosinophils (%) (Auto) 0.0 % Basophils (%) (Auto) 0.1 % Neutrophils # (Auto) 17.5 TH/MM3 Lymphocytes # (Auto) 0.5 TH/MM3 Monocytes # (Auto) 0.9 TH/MM3 Eosinophils # (Auto) 0.0 TH/MM3 Basophils # (Auto) 0.0 TH/MM3 CBC Comment DIFF FINAL Differential Comment Sodium Level 140 MEQ/L Potassium Level 4.6 MEQ/L Chloride Level 108 MEQ/L Carbon Dioxide Level 20.3 MEQ/L Anion Gap 12 MEQ/L Blood Urea Nitrogen 31 MG/DL Creatinine 1.48 MG/DL Estimat Glomerular Filtration 45 ML/MIN Rate Random Glucose 126 MG/DL Calcium Level 8.3 MG/DL Imaging Remarks Last Impressions Chest X-Ray 08/16/16 0234 Signed Impressions: Service Date/Time: Tuesday, August 16, 2016 02:44 - CONCLUSION: No acute findings. Multiple findings in both lungs is similar to prior CT scan in June 2016. The findings include left lung mass, upper lobe emphysema, interstitial prominence in the lower lungs Carlos Quiñonez MD Current Medications Active Medications Atorvastatin Calcium (Lipitor) 40 mg HS PO Last administered on 08/16/16t 20:49 ; Admin Dose 40 MG; Start 08/16/16 at 21:00 (Kassy Granger) Physical Exam General Appearance Remarks thin (Kassy Granger) Eyes Eye Exam: Pupils Equal, Pupils Reactive ([place],Kassy M. COMPUTER SYSTEMS INTEGRATOR) Throat Throat Exam: Oral Mucosa [place] & Moist ([place],Kassy M. COMPUTER SYSTEMS INTEGRATOR) Neck Neck Exam: Neck Supple ([place],Kassy M. COMPUTER SYSTEMS INTEGRATOR) Pulmonary Resp Exam: Diminished Breath Sounds ([place],Kassy M. COMPUTER SYSTEMS INTEGRATOR) Cardiology CV Exam: Regular ([place],Kassy M. COMPUTER SYSTEMS INTEGRATOR) Gastrointestinal/Abdomen GI Exam: Soft, Non-Tender, Bowel Sounds Present ([place],Susan M. COMPUTER SYSTEMS INTEGRATOR) Musculoskeletal MS Exam: Joints Intact, Atrophy (mild muscular) (Kassy Granger M. COMPUTER SYSTEMS INTEGRATOR) Integumentary Skin Exam: Warm, Dry ([place],Kassy M. COMPUTER SYSTEMS INTEGRATOR) Extremeties Extremities Exam: No Edema ([place],Kassy M. COMPUTER SYSTEMS INTEGRATOR) Neurologic Neuro Exam: Alert, Awake, Speech Clear, Moving All Extremities ([place],Kassy M. COMPUTER SYSTEMS INTEGRATOR) VTE Prophylaxis VTE Prophylaxis Device: SCDs (Kassy Granger M. COMPUTER SYSTEMS INTEGRATOR) Assessment/Plan Assessment/Plan 1. Non-ST elevation myocardial infarction. 2. COPD exacerbation with dyspnea. 3. Hypoxemia. 4. Leukocytosis, rule out pneumonia our infectious event. 5. Anemia. 6. Hypertension. PLAN 1. vitals, lab work reviewed, leukocytosis at 11.8 2.moniot 3. Gentle hydration, IVF 4. Intake and outputstable 5. Cardiac monitoring. 6. 2-D echo pending results. 7 consult cardiology for their expert opinion. Patient post heart cath, 3 vessel disease, pending surgical procedure am. 8. medications reviewed 9. O2 therapy prn DVT prophylaxis with heparin. PUD prophylaxis with Protonix. The patient is also on 81 mg aspirin per day. Pain management (Kassy Granger M. COMPUTER SYSTEMS INTEGRATOR) Assessment/Plan 85 yr old male seen and examined today. S/p cardiac cath on 08/16/16: Severe [place] three-vessel coronary artery disease. Appreciate cardiology/CVS input considering percutaneous strategy, given his h/o radiation and lung/prostate cancer. High risk for sternal malunion and dehiscence in the setting of radiated field. Discussed with patient. No family in room. will follow. (Mayank Medeiros MD) Kassy Granger M. COMPUTER SYSTEMS INTEGRATOR Aug 17, 2016 16:38 Mayank Medeiros MD Aug 17, 2016 17:13
[2016-08-17] MEDS: ATORVASTATIN 40 MG TAB PO SCH (20:59)
[2016-08-18] VITALS (22 sets, daily range): BP systolic 111–145; BP diastolic 57–75; PULSE 64–93; RESP 16–20; TEMP 96.1–97.9; O2SAT 91–96
[2016-08-18] MEDS: ASPIRIN EC 81 MG TABEC PO SCH (08:46)
[2016-08-18] MEDS: PANTOPRAZOLE SODIUM 40 MG VIAL IV SCH (08:50)
[2016-08-18] MEDS: SODIUM CHLORIDE 0.9% FLUSH 5 ML FLUSH FLUSH SCH ×2 (08:50→21:00)
[2016-08-18] MEDS: D5-1/2 NS + KCL 20 MEQ INJ 1,000 ML IV SCH (08:51)
--- NOTE | 2016-08-18 11:11 | HHI.PR ---
Subjective Remarks 85yr old male seen and examined today. No acute events overnight. Denies any CP/SOB/NVD. No fever. Objective Objective Results - Vital Signs Date Time Temp Pulse Resp B/P Pulse Ox O2 Delivery O2 Flow Rate FiO2 08/18/16 10:32 93 Nasal Cannula 4.00 08/18/16 10:00 72 08/18/16 09:00 74 08/18/16 08:05 74 08/18/16 07:00 64 08/18/16 07:00 97.5 74 20 122/66 94 08/18/16 06:00 70 08/18/16 04:00 66 08/18/16 04:00 97.9 74 16 114/57 96 08/18/16 02:00 68 08/18/16 00:00 74 08/18/16 00:00 97.5 74 16 111/57 96 08/17/16 22:00 68 08/17/16 20:00 74 08/17/16 20:00 97.7 74 16 109/60 98 08/17/16 18:00 69 08/17/16 17:00 72 08/17/16 16:00 80 08/17/16 15:00 97.6 72 18 114/64 96 08/17/16 15:00 70 08/17/16 14:00 80 08/17/16 13:00 82 08/17/16 12:16 96 08/17/16 12:00 74 I/O 08/17/16 08/17/16 08/17/16 08/18/16 08/18/16 08/18/16 07:00 15:00 23:00 07:00 15:00 23:00 Intake Total 640 ml 840 ml 2038 ml Output Total 575 ml 510 ml 1075 ml Balance 65 ml 330 ml 963 ml Intake Oral 240 ml 840 ml 240 ml IV Total 400 ml 1798 ml Output Urine Total 575 ml 510 ml 1075 ml # Bowel Movements 1 0 Result Diagram: 08/17/16 0346 08/17/16 0346 Other Results Date/Time Procedure Status Source Growth 08/16/16 02:50 Aerobic Blood Culture - Preliminary Resulted Blood Peripheral NO GROWTH IN 1 DAY 08/16/16 02:50 Anaerobic Blood Culture - Preliminary Resulted Blood Peripheral NO GROWTH IN 1 DAY ROS General: No: Fatigue, Weakness, Other HEENT: No: Sore Throat, Dysphagia, Other Cardiac: No: Chest Pain, Edema, Palpitations, Other Pulmonary: No: Cough, SOB, Wheezing, Other GI: No: Abdominal Pain, BM, Diarrhea, N/V, Other /PERSONAL SECURITY SPECIALIST: No: Dysuria, Urgency, Other Neuro/MS: No: Lightheaded, Confusion, Other Psych: No: Anxiety, Depression, Other Skin: No: Itching, Rash, Other Physical Exam Physical Exam PHYSICAL EXAMINATION GENERAL: This is a frail male who appears to be in no acute distress. He is alert and awake HEAD: Normocephalic without any lesion or mass noted. EYES: [place], Normal eye movement, no icterus. OROPHARYNGEAL: Oropharynx without erythema or edema. MOUTH/THROAT: Buccal mucosa is moist NECK: Supple. CARDIAC: Regular rhythm, regular rate, S1 and S2 are heard. LUNGS: Clear to auscultation bilaterally. ABDOMEN: Soft, nontender, no organomegaly or masses. Bowel sounds are heard in all four quadrants. No rebound. No guarding. EXTREMITIES: No edema. NEUROLOGICAL: Patient mood and affect appropriate. SKIN:Warm and moist PSYCH: Mood and affect appropriate A/P Assessment and Plan Assessment: 1. Non-ST elevation myocardial infarction. 2. COPD exacerbation with dyspnea. 3. Hypoxemia. 4. Persisting Leukocytosis: cxr: no pneumonia. blood cultures: no growth so far. 5. Anemia. 6. Hypertension. PLAN vitals, lab work reviewed, leukocytosis at 19.0 monitor. Gentle hydration, IVF Intake and output stable Cardiac monitoring. 2-D echo pending results. S/p cardiac cath on 08/16/16: Severe [place] three-vessel coronary artery disease. Appreciate cardiology/CVS input considering percutaneous strategy, given his h/o radiation and lung/prostate cancer. High risk for sternal malunion and dehiscence in the setting of radiated field. Start Rocephin. Check UA. Monitor CBC. medications reviewed O2 therapy prn DVT prophylaxis with heparin. PUD prophylaxis with Protonix. The patient is also on 81 mg aspirin per day. Pain management AM labs. Discussed with patient/RN. Mayank Medeiros MD Aug 18, 2016 11:11
--- NOTE | 2016-08-18 14:06 | PD.CARD.PN ---
Subjective Subjective Remarks Pt feels well, no cp Objective Medications Administered Medications Medications (Trade) Dose Ordered Sig/Ken Route PRN Reason Start Time Stop Time Status Last Admin Dose Admin Nitroglycerin/ Dextrose 250 ml @ 0 mls/hr TITRATE IV 08/16/16 04:00 08/16/16 04:13 Potassium Chloride/Dextrose/ Sod Cl (D5-1/2 NS + KCl 20 Meq Inj) 1,000 ml @ 40 mls/hr Q24H IV 08/16/16 05:23 08/18/16 08:51 IV Flush (NS Flush) 2 ml BID FLUSH 08/16/16 09:00 08/17/16 20:59 Pantoprazole Sodium (Protonix Inj) 40 mg DAILY IV 08/16/16 09:00 08/18/16 08:50 Aspirin (Ecotrin Ec) 81 mg DAILY PO 08/16/16 09:00 08/18/16 08:46 Atorvastatin Calcium (Lipitor) 40 mg HS PO 08/16/16 21:00 08/17/16 20:59 Vital Signs / I&O Vital Signs Date Time Temp Pulse Resp B/P Pulse Ox O2 Delivery O2 Flow Rate FiO2 08/18/16 13:00 83 08/18/16 12:00 93 08/18/16 11:00 70 08/18/16 11:00 96.1 69 20 116/64 96 08/18/16 10:32 93 Nasal Cannula 4.00 08/18/16 10:00 72 08/18/16 09:00 74 08/18/16 08:05 74 08/18/16 07:00 64 08/18/16 07:00 97.5 74 20 122/66 94 08/18/16 06:00 70 08/18/16 04:00 66 08/18/16 04:00 97.9 74 16 114/57 96 08/18/16 02:00 68 08/18/16 00:00 74 08/18/16 00:00 97.5 74 16 111/57 96 08/17/16 22:00 68 08/17/16 20:00 74 08/17/16 20:00 97.7 74 16 109/60 98 08/17/16 18:00 69 08/17/16 17:00 72 08/17/16 16:00 80 08/17/16 15:00 97.6 72 18 114/64 96 08/17/16 15:00 70 I/O 08/17/16 08/17/16 08/17/16 08/18/16 08/18/16 08/18/16 07:00 15:00 23:00 07:00 15:00 23:00 Intake Total 640 ml 840 ml 2038 ml Output Total 575 ml 510 ml 1075 ml Balance 65 ml 330 ml 963 ml Intake Oral 240 ml 840 ml 240 ml IV Total 400 ml 1798 ml Output Urine Total 575 ml 510 ml 1075 ml # Bowel Movements 1 0 Physical Exam GENERAL: This is a well-nourished, well-developed patient, in no apparent distress. CARDIOVASCULAR: Regular rate and rhythm without murmurs, gallops, or rubs. RESPIRATORY: Clear to auscultation. Breath sounds equal bilaterally. No wheezes , rales, or rhonchi. GASTROINTESTINAL: Abdomen soft, non-tender, nondistended. Normal active bowel sounds MUSCULOSKELETAL: Extremities without clubbing, cyanosis, or edema. NEURO: Alert & Oriented x4 to person, place, time, situation. Moves all ext x4 Imaging Last Impressions Chest X-Ray 08/16/16 0234 Signed Impressions: Service Date/Time: Tuesday, August 16, 2016 02:44 - CONCLUSION: No acute findings. Multiple findings in both lungs is similar to prior CT scan in June 2016. The findings include left lung mass, upper lobe emphysema, interstitial prominence in the lower lungs Carlos Quiñonez MD Assessment and Plan Problem List: (1) CAD (coronary artery disease) Assessment and Plan: has been turned down for surgery; Dr. Farmer will likely perform PIC this week; continue med mgt. on asa/statin/ added bb (2) NSTEMI (non-ST elevated myocardial infarction) Assessment and Plan: enzymes trending down, no cp Assessment and Plan Dr. Farmer will return tomorrow to resume care. Kenn Crum MD Aug 18, 2016 14:06
[2016-08-18] MEDS ORDERED: PILL SPLITTER OTHER PRN (14:15)
[2016-08-18] MEDS: cefTRIAXone INJ 1,000 MG in SODIUM CHLORIDE 0.9% INJ 100 ML IV SCH (15:00)
[2016-08-18 16:19] LABS: BLOOD, URINE NEG (NEG); COMMENT (UR) CULT NOT INDICATED; CULTURE IF INDICATED CULT NOT INDICATED; GLUCOSE,URINE NEG (NEG); KETONE, URINE NEG (NEG); NITRITE,URINE NEG (NEG); PH, URINE 5.5 (5.0-8.5); URINE COLOR LIGHT-YELLOW (YELLW/STRAW)
[2016-08-18] MEDS: ATORVASTATIN 40 MG TAB PO SCH (21:34)
[2016-08-18] MEDS: METOPROLOL TARTRATE 25 MG TAB PO SCH (21:34)
[2016-08-19] VITALS (26 sets, daily range): BP systolic 112–149; BP diastolic 57–77; PULSE 61–83; RESP 18–20; TEMP 97.7–98.3; O2SAT 90–93
[2016-08-19] MEDS: D5-1/2 NS + KCL 20 MEQ INJ 1,000 ML IV SCH (05:23)
[2016-08-19 06:57] LABS: BASOPHIL % 0.2 % (0.0-2.0); EOSINOPHIL # 0.2 TH/MM3 (0-0.4); EOSINOPHIL % 1.9 % (0.0-4.0); HEMATOCRIT 42.1 % (39.0-51.0); HEMO FLAGS DIFF FINAL; LYMPH % 6.9 % (9.0-44.0); LYMPHOCYTE # 0.7 TH/MM3 (1.0-4.8); MEAN CELL VOLUME 83.9 FL (80.0-100.0); MEAN CORPUSCULAR HEMOGLOBIN 27.9 PG (27.0-34.0); MEAN CORPUSCULAR HGB CONC 33.2 % (32.0-36.0); MONO % 6.9 % (0.0-8.0); NEUT % 84.1 % (16.0-70.0); PLATELET COUNT 348 TH/MM3 (150-450); RED BLOOD COUNT 5.02 MIL/MM3 (4.50-5.90); RED CELL DISTRIBUTION WIDTH 15.3 % (11.6-17.2); WHITE BLOOD COUNT 10.7 TH/MM3 (4.0-11.0)
[2016-08-19 07:24] LABS: BICARBONATE 26.3 MEQ/L (21.0-32.0); POTASSIUM 4.6 MEQ/L (3.5-5.1)
--- NOTE | 2016-08-19 08:37 | PD.CARD.PN ---
Subjective Subjective Remarks denies chest pain, c/o cough due to no Brio for three days (Pepe Fontana) Objective Vital Signs / I&O Vital Signs Date Time Temp Pulse Resp B/P Pulse Ox O2 Delivery O2 Flow Rate FiO2 08/19/16 06:00 76 08/19/16 05:00 64 08/19/16 04:40 97.7 68 133/67 91 08/19/16 04:00 62 08/19/16 03:00 61 08/19/16 02:00 62 08/19/16 01:00 62 08/19/16 00:00 64 08/18/16 23:00 96.8 64 117/60 95 08/18/16 23:00 69 08/18/16 22:00 72 08/18/16 21:00 74 08/18/16 20:00 76 08/18/16 19:00 80 08/18/16 19:00 97.5 89 145/75 91 08/18/16 18:00 88 08/18/16 17:00 90 08/18/16 16:00 81 08/18/16 15:00 65 08/18/16 15:00 96.9 78 20 112/60 95 08/18/16 14:00 75 08/18/16 13:00 83 08/18/16 12:00 93 08/18/16 11:00 70 08/18/16 11:00 96.1 69 20 116/64 96 08/18/16 10:32 93 Nasal Cannula 4.00 08/18/16 10:00 72 08/18/16 09:00 74 I/O 08/18/16 08/18/16 08/18/16 08/19/16 08/19/16 08/19/16 07:00 15:00 23:00 07:00 15:00 23:00 Intake Total 2038 ml 810 ml 240 ml Output Total 1075 ml 375 ml Balance 963 ml 810 ml -135 ml Intake Oral 240 ml 810 ml 240 ml IV Total 1798 ml Output Urine Total 1075 ml 375 ml # Bowel Movements 0 1 Physical Exam GENERAL: Well-nourished, well-developed patient in no apparent distress. NECK: No JVD. No carotid bruit. CARDIOVASCULAR: Regular rate and rhythm. S1/S2 no murmur, rub, or gallop. RESPIRATORY: No accessory muscle use. mild rhonchi to auscultation. Breath sounds equal bilaterally. GASTROINTESTINAL: Abdomen soft, non-tender, nondistended. MUSCULOSKELETAL: Extremities without clubbing, cyanosis, or edema. Laboratory Laboratory Tests Test 08/18/16 08/19/16 15:20 05:45 Urine Color LIGHT-YELLOW Urine Turbidity CLEAR Urine pH 5.5 Urine Specific [place] 1.010 Urine Protein 30 mg/dL Urine Glucose (UA) NEG mg/dL Urine Ketones NEG mg/dL Urine Occult Blood NEG Urine Nitrite NEG Urine Bilirubin NEG Urine Urobilinogen LESS THAN 2.0 MG/DL Urine Leukocyte Esterase NEG Urine RBC LESS THAN 1 /hpf Urine WBC LESS THAN 1 /hpf Microscopic Urinalysis Comment CULT NOT INDICATED White Blood Count 10.7 TH/MM3 Red Blood Count 5.02 MIL/MM3 Hemoglobin 14.0 GM/DL Hematocrit 42.1 % Mean Corpuscular Volume 83.9 FL Mean Corpuscular Hemoglobin 27.9 PG Mean Corpuscular Hemoglobin 33.2 % Concent Red Cell Distribution Width 15.3 % Platelet Count 348 TH/MM3 Mean Platelet Volume 8.2 FL Neutrophils (%) (Auto) 84.1 % Lymphocytes (%) (Auto) 6.9 % Monocytes (%) (Auto) 6.9 % Eosinophils (%) (Auto) 1.9 % Basophils (%) (Auto) 0.2 % Neutrophils # (Auto) 9.0 TH/MM3 Lymphocytes # (Auto) 0.7 TH/MM3 Monocytes # (Auto) 0.7 TH/MM3 Eosinophils # (Auto) 0.2 TH/MM3 Basophils # (Auto) 0.0 TH/MM3 CBC Comment DIFF FINAL Differential Comment Sodium Level 143 MEQ/L Potassium Level 4.6 MEQ/L Chloride Level 107 MEQ/L Carbon Dioxide Level 26.3 MEQ/L Anion Gap 10 MEQ/L Blood Urea Nitrogen 38 MG/DL Creatinine 1.37 MG/DL Estimat Glomerular Filtration 50 ML/MIN Rate Random Glucose 72 MG/DL Calcium Level 8.3 MG/DL (Pepe Fontana) Assessment and Plan Problem List: (1) CAD (coronary artery disease) (2) NSTEMI (non-ST elevated myocardial infarction) Assessment and Plan CAD - plan is for high risk PCI, will need prehydration due to renal dysfunction (Pepe Fontana) Assessment and Plan NPO p midnight hydration today plan for multivessel PCI tomorrow R/B/A discussed with patient. not surgical candidate (Elvin Farmer MD) Pepe Fontana Aug 19, 2016 08:36 Elvin Farmer MD Aug 19, 2016 08:55
[2016-08-19] MEDS ORDERED: CLOPIDOGREL 300 MG TAB PO ONE (09:00)
[2016-08-19] MEDS: PANTOPRAZOLE SODIUM 40 MG VIAL IV SCH (09:00)
[2016-08-19] MEDS: SODIUM CHLORIDE 0.9% FLUSH 5 ML FLUSH FLUSH SCH ×2 (09:02→20:22)
[2016-08-19] MEDS: METOPROLOL TARTRATE 25 MG TAB PO SCH ×2 (09:02→20:22)
[2016-08-19] MEDS: ASPIRIN EC 81 MG TABEC PO SCH (09:02)
[2016-08-19] MEDS: cefTRIAXone INJ 1,000 MG in SODIUM CHLORIDE 0.9% INJ 100 ML IV SCH (14:00)
--- NOTE | 2016-08-19 16:58 | HHI.PR ---
Subjective History of Present Illness pt is seen & Examined chart reviewed I am ok c/o mild SOB , still wheezing +ve cough , no sputum ' No fever or chills No CP or SOB No N/V No abd pain no diarrhea offers no other c/o Review of Systems Constitutional Constitutional: Weakness Pulmonary Respiratory: Shortness of Breath Musculoskeletal MS: Weakness Psychiatric Psychiatric: Normal Mood Vitals/Results Intake & Output 08/18/16 08/18/16 08/19/16 15:00 23:00 07:00 Intake Total 810 ml 240 ml Output Total 375 ml Balance 810 ml -135 ml Intake Oral 810 ml 240 ml Output Urine Total 375 ml # Bowel Movements 1 Vital Signs Vital Signs Date Time Temp Pulse Resp B/P Pulse Ox O2 Delivery O2 Flow Rate FiO2 08/19/16 16:00 72 08/19/16 15:00 71 08/19/16 14:00 69 08/19/16 13:00 73 08/19/16 12:00 71 08/19/16 11:00 61 08/19/16 11:00 98.0 63 18 149/64 93 08/19/16 10:00 65 08/19/16 09:00 82 08/19/16 08:00 97.9 75 20 124/72 92 08/19/16 08:00 83 08/19/16 07:00 81 08/19/16 06:00 76 08/19/16 05:00 64 08/19/16 04:40 97.7 68 133/67 91 08/19/16 04:00 62 08/19/16 03:00 61 08/19/16 02:00 62 08/19/16 01:00 62 08/19/16 00:00 64 08/18/16 23:00 96.8 64 117/60 95 08/18/16 23:00 69 08/18/16 22:00 72 08/18/16 21:00 74 08/18/16 20:00 76 08/18/16 19:00 80 08/18/16 19:00 97.5 89 145/75 91 08/18/16 18:00 88 08/18/16 17:00 90 CBC/BMP: 08/19/16 0545 08/19/16 0545 Lab Results Laboratory Tests Test 08/19/16 05:45 White Blood Count 10.7 TH/MM3 Red Blood Count 5.02 MIL/MM3 Hemoglobin 14.0 GM/DL Hematocrit 42.1 % Mean Corpuscular Volume 83.9 FL Mean Corpuscular Hemoglobin 27.9 PG Mean Corpuscular Hemoglobin 33.2 % Concent Red Cell Distribution Width 15.3 % Platelet Count 348 TH/MM3 Mean Platelet Volume 8.2 FL Neutrophils (%) (Auto) 84.1 % Lymphocytes (%) (Auto) 6.9 % Monocytes (%) (Auto) 6.9 % Eosinophils (%) (Auto) 1.9 % Basophils (%) (Auto) 0.2 % Neutrophils # (Auto) 9.0 TH/MM3 Lymphocytes # (Auto) 0.7 TH/MM3 Monocytes # (Auto) 0.7 TH/MM3 Eosinophils # (Auto) 0.2 TH/MM3 Basophils # (Auto) 0.0 TH/MM3 CBC Comment DIFF FINAL Differential Comment Sodium Level 143 MEQ/L Potassium Level 4.6 MEQ/L Chloride Level 107 MEQ/L Carbon Dioxide Level 26.3 MEQ/L Anion Gap 10 MEQ/L Blood Urea Nitrogen 38 MG/DL Creatinine 1.37 MG/DL Estimat Glomerular Filtration 50 ML/MIN Rate Random Glucose 72 MG/DL Calcium Level 8.3 MG/DL Physical Exam General General Appearance: Comfortable, Anxious, Malnourished Appearance Remarks frail thinly built elderly WM Eyes Eye Exam: Pupils Equal, Sclera White Ears & Nose Ears & Nose Exam: Nasal Mucosa [place] Throat Throat Exam: Oral Mucosa [place] & Moist Neck Neck Exam: Neck Supple, Trachea Midline Pulmonary Resp Exam: Breath Sounds Equal, Rhonchi Resp Remarks scattered b/l rhonchi Cardiology CV Exam: Regular, Normal Sinus Rhythm Gastrointestinal/Abdomen GI Exam: Soft, Non-Tender, Bowel Sounds Present Musculoskeletal MS Exam: Joints Intact, Atrophy (mild muscular) Integumentary Skin Exam: Warm, Dry Extremeties Extremities Exam: No Edema Neurologic Neuro Exam: Alert, Awake, Oriented, Speech Clear, Moving All Extremities Psychiatric Psych Exam: Appropriate Responses VTE Prophylaxis VTE Prophylaxis Device: SCDs PUD Prophylasis PUD Prophylaxis: Protonix Assessment/Plan Assessment/Plan ASSESSMENT s/p ACS / NSTEMI MV CAD ARF/CKD severe COPD Hx Of Lung Ca s/p XRT tx in past HTN frail /elderly pt PLAN S/p cardiac cath on 08/16/16: Severe [place] three-vessel coronary artery disease. CVSx input appreciated , poor surgical candidate , Dr Farmer is planning cardiac intervention in am cont Cautious IV hydration f/u renal function ASA Plavix was added BB statin IV rocephin start IV solumedrol aerosol tx PPI d/w PT at bedside in detail /asnwered all of his questions am labs will f/u Reg Greenwood MD Aug 19, 2016 16:58
[2016-08-19] MEDS: ATORVASTATIN 40 MG TAB PO SCH (20:22)
[2016-08-19] MEDS ORDERED: methylPREDNISolone SOD SUCC 125 MG/2 ML VIAL IV PUSH SCH (21:40)
[2016-08-19] MEDS: SODIUM CHLOR 0.9% 1000 ML INJ 1,000 ML IV SCH (22:34)
[2016-08-19 22:44] LABS: BLOOD GAS BASE EXCESS -3.2 mmol/L (-2-2); BLOOD GAS CARBOXYHEMOGLOBIN 1.6 % (0-4); BLOOD GAS HCO3 20 mmol/L (22-26); BLOOD GAS METHEMOGLOBIN 0.8 % (0-2); BLOOD GAS O2 HGB SATURATION 97 % (90-100); BLOOD GAS OXYGEN CONTENT 19.2 Vol % (12.0-20.0); BLOOD GAS PCO2 30 mmHg (38-42); BLOOD GAS PO2 138 mmHg (61-120); CRITICAL VALUE NO; DRAW SITE LT RADIAL; LITER FLOW 12 L/M; NUMBER OF ARTERIAL PUNCTURES 1; OXYGEN DEVICE PRB; STAT NO; TEMP CORR TO 98.6; ULNAR PULSE PRESENT
--- NOTE | 2016-08-19 22:57 | RADRPT ---
EXAM DATE/TIME: 08/19/2016 21:46 [place] COMPARISON: CHEST SINGLE AP, August 16, 2016, 2:44. INDICATIONS : Short of breath. MEDICAL HISTORY : Chronic obstructive pulmonary disease. Carcinoma, lung. Carcinoma, prostatic. SURGICAL HISTORY : None. ENCOUNTER: Subsequent ACUITY: 4 - 6 days PAIN SCORE: 0/10 LOCATION: Bilateral chest FINDINGS: A single view of the chest demonstrates a new patchy infiltrate in the right lower lung suggestive of pneumonia. There continues to be hyperaeration of both lung anderson. There is a persistent mass in th e left midlung. No definite pleural effusions. Heart size is stable. There is no evidence of pneumoth orax. The bony structures are stable.. CONCLUSION: There is a new patchy infiltrate in the right lower lung suggestive of pneumonia. No change in the ma ss in the left midlung. Jose Greco MD on August 19, 2016 at 22:54 Board Certified Radiologist. This report was verified electronically.
[2016-08-19] MEDS: RESP: ALBUTEROL 2.5 MG/IPRATROPIUM 0.5 MG NEB (SCH) NEB (23:54)
[2016-08-20] VITALS (18 sets, daily range): BP systolic 105–133; BP diastolic 53–68; PULSE 58–78; RESP 18–20; TEMP 96.7–97.6; O2SAT 91–96
[2016-08-20] MEDS: RESP: ALBUTEROL 2.5 MG/IPRATROPIUM 0.5 MG NEB (SCH) NEB ×5 (03:20→20:18)
[2016-08-20] MEDS: AZITHROMYCIN 500 MG/NS 250 ML IV SCH ×2 (03:52)
[2016-08-20] MEDS: methylPREDNISolone SOD SUCC 125 MG/2 ML VIAL IV SCH ×3 (03:53→16:00)
[2016-08-20 06:41] LABS: HEMATOCRIT 41.7 % (39.0-51.0); MEAN CELL VOLUME 82.5 FL (80.0-100.0); MEAN CORPUSCULAR HEMOGLOBIN 26.9 PG (27.0-34.0); MEAN CORPUSCULAR HGB CONC 32.6 % (32.0-36.0); PLATELET COUNT 394 TH/MM3 (150-450); RED BLOOD COUNT 5.06 MIL/MM3 (4.50-5.90); REVIEW FLAG FINAL; WHITE BLOOD COUNT 7.7 TH/MM3 (4.0-11.0)
[2016-08-20 06:47] LABS: P2Y12 REACTION UNITS (PRU) 182 PRU (194-418)
[2016-08-20 07:07] LABS: POTASSIUM 5.5 MEQ/L (3.5-5.1)
[2016-08-20] MEDS: SODIUM CHLOR 0.9% 1000 ML INJ 1,000 ML IV SCH ×4 (07:29→19:38)
--- NOTE | 2016-08-20 07:36 | PD.CARD.PN ---
Subjective Subjective Remarks denies chest pain (Pepe Fontana) Objective Vital Signs / I&O Vital Signs Date Time Temp Pulse Resp B/P Pulse Ox O2 Delivery O2 Flow Rate FiO2 08/20/16 07:30 96.7 60 18 121/68 94 08/20/16 06:23 60 08/20/16 05:00 60 08/20/16 04:00 58 08/20/16 03:00 63 08/20/16 03:00 96.8 60 105/56 95 08/20/16 02:00 66 08/20/16 01:00 66 08/20/16 00:00 66 08/19/16 23:00 69 08/19/16 23:00 68 112/57 92 08/19/16 22:00 78 08/19/16 21:39 93 Nasal Cannula 4.00 08/19/16 21:00 68 08/19/16 20:00 74 08/19/16 19:00 98.1 72 112/72 90 08/19/16 19:00 76 08/19/16 18:00 77 08/19/16 17:00 73 08/19/16 16:00 98.3 73 18 143/77 91 08/19/16 16:00 72 08/19/16 15:00 71 08/19/16 14:00 69 08/19/16 13:00 73 08/19/16 12:00 71 08/19/16 11:00 61 08/19/16 11:00 98.0 63 18 149/64 93 08/19/16 10:00 65 08/19/16 09:00 82 08/19/16 08:00 97.9 75 20 124/72 92 08/19/16 08:00 83 I/O 08/19/16 08/19/16 08/19/16 08/20/16 08/20/16 08/20/16 07:00 15:00 23:00 07:00 15:00 23:00 Intake Total 240 ml 240 ml 691 ml 600 ml Output Total 375 ml 650 ml 200 ml 850 ml Balance -135 ml -410 ml 491 ml -250 ml Intake Oral 240 ml 240 ml 240 ml 600 ml IV Total 451 ml Output Urine Total 375 ml 650 ml 200 ml 850 ml # Bowel Movements 0 Physical Exam GENERAL: Well-nourished, well-developed patient in no apparent distress. NECK: No JVD. No carotid bruit. CARDIOVASCULAR: Regular rate and rhythm. S1/S2 no murmur, rub, or gallop. RESPIRATORY: No accessory muscle use. mild rhonchi to auscultation. Breath sounds equal bilaterally. GASTROINTESTINAL: Abdomen soft, non-tender, nondistended. MUSCULOSKELETAL: Extremities without clubbing, cyanosis, or edema. Laboratory Laboratory Tests Test 08/19/16 08/20/16 22:15 05:45 Blood Gas Puncture Site LT RADIAL Blood Gas Patient Temperature 98.6 Blood Gas HCO3 20 mmol/L Blood Gas Base Excess -3.2 mmol/L Blood Gas Oxygen Saturation 97 % Arterial Blood pH 7.45 Arterial Blood Partial 30 mmHg Pressure CO2 Arterial Blood Partial 138 mmHg Pressure O2 Arterial Blood Oxygen Content 19.2 Vol % Arterial Blood 1.6 % Carboxyhemoglobin Arterial Blood Methemoglobin 0.8 % Blood Gas Hemoglobin 14.0 G/DL Oxygen Delivery Device PRB Blood Gas Liter Flow 12 L/M White Blood Count 7.7 TH/MM3 Red Blood Count 5.06 MIL/MM3 Hemoglobin 13.6 GM/DL Hematocrit 41.7 % Mean Corpuscular Volume 82.5 FL Mean Corpuscular Hemoglobin 26.9 PG Mean Corpuscular Hemoglobin 32.6 % Concent Red Cell Distribution Width 15.0 % Platelet Count 394 TH/MM3 Mean Platelet Volume 7.9 FL Platelet Function P2Y12 React 182 PRU Units Sodium Level 140 MEQ/L Potassium Level 5.5 MEQ/L Chloride Level 103 MEQ/L Carbon Dioxide Level 26.0 MEQ/L Anion Gap 11 MEQ/L Blood Urea Nitrogen 34 MG/DL Creatinine 1.39 MG/DL Estimat Glomerular Filtration 49 ML/MIN Rate Random Glucose 109 MG/DL Calcium Level 8.3 MG/DL (Pepe Fontana) Assessment and Plan Problem List: (1) CAD (coronary artery disease) (2) NSTEMI (non-ST elevated myocardial infarction) Assessment and Plan CAD - plan is for high risk PCI today. Continue IV fluids (Pepe Fontana) Assessment and Plan high risk PCI [place] x1 to proximal LAD [place] x 2 to RCA asa plavix bb statin IV hydration DC planning for tomorrow (Elvin Farmer MD) Pepe Fontana Aug 20, 2016 07:36 Elvin Farmer MD Aug 20, 2016 09:41
[2016-08-20] MEDS: METOPROLOL TARTRATE 25 MG TAB PO SCH ×2 (07:42→21:33)
[2016-08-20] MEDS ORDERED: HEPARIN-NS/PF INJ 500 ML ONE (08:39)
[2016-08-20] MEDS ORDERED: STERILE WATER FOR INJECTION 10 ML VIAL ONE (08:40)
[2016-08-20] MEDS ORDERED: BIVALIRUDIN 250 MG VIAL ONE (08:40)
[2016-08-20] MEDS ORDERED: MIDAZOLAM HCL 2 MG/2 ML VIAL ONE (08:40)
[2016-08-20] MEDS ORDERED: NITROGLYCERIN INJ 5 ML ONE (08:40)
[2016-08-20] MEDS: SODIUM CHLORIDE 0.9% FLUSH 5 ML FLUSH FLUSH SCH ×2 (09:00→21:34)
[2016-08-20] MEDS: CLOPIDOGREL 75 MG TAB PO SCH (09:00)
[2016-08-20] MEDS ORDERED: BIVALIRUDIN INJ 250 MG in SODIUM CHLORIDE 0.9% INJ 50 ML IV SCH (09:38)
[2016-08-20] MEDS ORDERED: ONDANSETRON HCL 4 MG/2 ML VIAL IV PRN (09:45)
[2016-08-20] MEDS ORDERED: LORazepam 2 MG/ML VIAL IV PRN (09:45)
[2016-08-20] MEDS ORDERED: ATROPINE SULFATE 1 MG/ML VIAL IV PRN (09:45)
[2016-08-20] MEDS ORDERED: LIDOCAINE 2% JELLY 30 ML TUBE TOP PRN (09:45)
[2016-08-20] MEDS ORDERED: METOCLOPRAMIDE HCL 10 MG/2 ML VIAL IV PRN (09:45)
[2016-08-20] MEDS ORDERED: MISC INFORMATION XX ONE (09:45)
[2016-08-20] MEDS ORDERED: LIDOCAINE HCL 1% 50 ML VIAL INFIL PRN (09:45)
[2016-08-20] MEDS ORDERED: SODIUM CHLOR 0.9% 250 ML INJ 250 ML IV PRN (09:45)
[2016-08-20] MEDS ORDERED: BACITRACIN OINT 0.9 GM PKT TOP ONE (10:00)
[2016-08-20] MEDS ORDERED: IOHEXOL 350 MG/ML 50 ML BTL (for Cath Lab) OTHER ONE (10:35)
[2016-08-20] MEDS: PANTOPRAZOLE SODIUM 40 MG VIAL IV SCH (11:35)
[2016-08-20] MEDS: ASPIRIN EC 81 MG TABEC PO SCH (11:36)
--- NOTE | 2016-08-20 12:40 | MA ---
cc: ELVIN TRIPATHI DATE August 20, 2016 TOTAL AMOUNT OF CONTRAST ADMINISTERED 40 cc. PROCEDURE PERFORMED 1. Fluoroscopy with interpretation. 2. Coronary angiography. 3. Percutaneous intervention with drug-eluting stents to the proximal left anterior descending coronary artery and right coronary artery. METHOD The risks, benefits and alternatives were discussed with the patient. The patient understood and consented to the procedure. The patient was brought into the catheterization lab, placed on the catheterization table. The right groin was prepped and draped in sterile fashion. The right groin was anesthetized with 2% lidocaine. The right common femoral artery is cannulated and the 6-[place], 11-cm sheath was placed out difficulty. CORONARY ANGIOGRAPHY Please see detailed diagnostic coronary angiogram dictated on 08/16/2016. FINDINGS 1. Left main is angiographically normal. 2. Left anterior descending coronary artery has a 75% stenosis proximally and minor luminal irregularities otherwise. 3. The circumflex is 100% occluded proximally. 4. The right coronary has rather diffuse disease with 95% stenosis in the mid-segment. It is right dominant. PERCUTANEOUS INTERVENTION The left coronary circulation was selectively engaged with a 6-[place] XB LAD 3.5 guide catheter. AngioMax was administered throughout the entire procedure to maintain appropriate anticoagulation. A 0.014, 180-cm [place]o Run-Through wire was navigated down the distal left anterior descending coronary artery without difficulty. A 3.5 x 15-mm RX Resolute drug-eluting stent was then deployed in the proximal left anterior descending coronary artery. Repeat angiography showed no residual stenosis. Attention was then directed to the right coronary artery. The right coronary was selectively engaged. A 6-[place] JR-4 guide catheter, 0.014 inch, 180-cm Terumo Run-Through wire was navigated down to the distal posterior descending branch. A 2.5 x 15-mm RX Euphora balloon was then deployed at two sequential inflations in the mid-segment and one inflation in the proximal segment to 14 atmospheres. Repeat angiography still shows severe residual stenosis. A 3.5 x 26-mm RX Resolute drug-eluting stent was advanced to the mid-right coronary artery and deployed. A second 3.5 x 22-mm RX Resolute drug-eluting stent was advanced to the proximal extending in the mid-right coronary artery and deployed with minimal stent overlap. Repeat angiography showed no residual stenosis, ELEUTERIO-3 flow. The wire was removed, the guide catheter removed, the sheath sewn into place to be removed with manual hemostasis. CONCLUSIONS 1. Severe multivessel coronary disease. 2. Successful percutaneous intervention with drug-eluting stent to the proximal left anterior descending coronary artery. 3. Successful percutaneous intervention with drug-eluting stents to the proximal and mid-right coronary artery. PLAN The patient will be continued on aspirin and Plavix in addition to beta alexa and statin therapy. We will medically manage the left circumflex coronary artery since it is occluded. I believe he has completed that infarct. He is currently chest pain-free. We will anticipate discharge for tomorrow. Elvin Tripathi MD SM/SSB /8:45 AM /11:29 AM MTDD
[2016-08-20] MEDS: cefTRIAXone INJ 1,000 MG in SODIUM CHLORIDE 0.9% INJ 100 ML IV SCH (14:00)
--- NOTE | 2016-08-20 16:54 | HHI.PR ---
Subjective History of Present Illness Feels better Status post Distending today Breathing is improving less wheezing cough is improving , no sputum ' No fever or chills No CP No N/V Appetite is okay No abd pain no diarrhea offers no other c/o Review of Systems Constitutional Constitutional: Weakness Pulmonary Respiratory: Shortness of Breath Musculoskeletal MS: Weakness Psychiatric Psychiatric: Normal Mood Vitals/Results Intake & Output 08/19/16 08/19/16 08/20/16 15:00 23:00 07:00 Intake Total 240 ml 691 ml 600 ml Output Total 650 ml 200 ml 850 ml Balance -410 ml 491 ml -250 ml Intake Oral 240 ml 240 ml 600 ml IV Total 451 ml Output Urine Total 650 ml 200 ml 850 ml # Bowel Movements 0 Vital Signs Vital Signs Date Time Temp Pulse Resp B/P Pulse Ox O2 Delivery O2 Flow Rate FiO2 08/20/16 11:00 97.2 74 20 118/68 94 08/20/16 10:05 97.3 63 18 133/64 93 08/20/16 09:45 97.4 61 18 123/65 96 08/20/16 07:56 93 Nasal Cannula 5.00 08/20/16 07:30 96.7 60 18 121/68 94 08/20/16 06:23 60 08/20/16 05:00 60 08/20/16 04:00 58 08/20/16 03:00 63 08/20/16 03:00 96.8 60 105/56 95 08/20/16 02:00 66 08/20/16 01:00 66 08/20/16 00:00 66 08/19/16 23:00 69 08/19/16 23:00 68 112/57 92 08/19/16 22:00 78 08/19/16 21:39 93 Nasal Cannula 4.00 08/19/16 21:00 68 08/19/16 20:00 74 08/19/16 19:00 98.1 72 112/72 90 08/19/16 19:00 76 08/19/16 18:00 77 08/19/16 17:00 73 CBC/BMP: 08/20/16 0545 08/20/16 0545 Lab Results Laboratory Tests Test 08/19/16 08/20/16 22:15 05:45 Blood Gas Puncture Site LT RADIAL Blood Gas Patient Temperature 98.6 Blood Gas HCO3 20 mmol/L Blood Gas Base Excess -3.2 mmol/L Blood Gas Oxygen Saturation 97 % Arterial Blood pH 7.45 Arterial Blood Partial 30 mmHg Pressure CO2 Arterial Blood Partial 138 mmHg Pressure O2 Arterial Blood Oxygen Content 19.2 Vol % Arterial Blood 1.6 % Carboxyhemoglobin Arterial Blood Methemoglobin 0.8 % Blood Gas Hemoglobin 14.0 G/DL Oxygen Delivery Device PRB Blood Gas Liter Flow 12 L/M White Blood Count 7.7 TH/MM3 Red Blood Count 5.06 MIL/MM3 Hemoglobin 13.6 GM/DL Hematocrit 41.7 % Mean Corpuscular Volume 82.5 FL Mean Corpuscular Hemoglobin 26.9 PG Mean Corpuscular Hemoglobin 32.6 % Concent Red Cell Distribution Width 15.0 % Platelet Count 394 TH/MM3 Mean Platelet Volume 7.9 FL Platelet Function P2Y12 React 182 PRU Units Sodium Level 140 MEQ/L Potassium Level 5.5 MEQ/L Chloride Level 103 MEQ/L Carbon Dioxide Level 26.0 MEQ/L Anion Gap 11 MEQ/L Blood Urea Nitrogen 34 MG/DL Creatinine 1.39 MG/DL Estimat Glomerular Filtration 49 ML/MIN Rate Random Glucose 109 MG/DL Calcium Level 8.3 MG/DL Physical Exam General General Appearance: No Acute Distress, Comfortable, Malnourished Appearance Remarks frail thinly built elderly WM Eyes Eye Exam: Pupils Equal, Sclera White, Extraocular Movement Intact Ears & Nose Ears & Nose Exam: Nasal Mucosa [place] Throat Throat Exam: Oral Mucosa [place] & Moist Neck Neck Exam: Neck Supple, Trachea Midline Pulmonary Resp Exam: Breath Sounds Equal, No Distress, Rhonchi Resp Remarks occ faint rhonchi Cardiology CV Exam: Regular, Normal Sinus Rhythm Gastrointestinal/Abdomen GI Exam: Soft, Non-Tender, Bowel Sounds Present Musculoskeletal MS Exam: Atrophy (mild muscular) Integumentary Skin Exam: Warm, Dry Extremeties Extremities Exam: No Edema Neurologic Neuro Exam: Alert, Awake, Oriented, Speech Clear, Moving All Extremities Psychiatric Psych Exam: Appropriate Responses VTE Prophylaxis VTE Prophylaxis Device: SCDs PUD Prophylasis PUD Prophylaxis: Protonix Assessment/Plan Assessment/Plan ASSESSMENT s/p ACS / NSTEMI MV CAD ARF/CKD severe COPD Hx Of Lung Ca s/p XRT tx in past HTN frail /elderly pt PLAN S/p cardiac cath on 08/16/16: Severe [place] three-vessel coronary artery disease. CVSx input appreciated , poor surgical candidate , Status post catheter with stenting today Continue Plavix/aspirin Low-dose beta alexa Statin Check lipid profile cont Cautious IV hydration f/u renal function IV rocephin/Zithromax IV solumedrol aerosol tx Will give a dose of Kayexalate, follow potassium level PPI career placement services counselor for discharge planning d/w PT am labs career placement services counselor for discharge planning will f/u Reg Greenwood MD Aug 20, 2016 16:54
[2016-08-20] MEDS ORDERED: SODIUM POLYSTYRENE SULFONATE SUSP 15 GM/60 ML CUP PO ONE (17:00)
--- NOTE | 2016-08-20 20:34 | MB ---
cc: ARMAAN DEVLIN DATE OF CONSULTATION 08/20/[address] Greenwood REASON FOR CONSULTATION Chronic obstructive pulmonary disease management HISTORY OF PRESENT ILLNESS Mr. Ro is a pleasant 85-year-old male with severe chronic obstructive pulmonary disease. He is oxygen dependent. He was using oxygen three liters nasal cannula. The patient came to the hospital with complaint of chest pain. He was found to have non-STEMI. He underwent cardiac catheterization and he had a stent in the LAD and RCA placed. The patient was evaluated by Dr. Eddie Barnhart and was not considered immediate for surgery. He feels significantly better, weaned down to oxygen 4 liters nasal cannula, has no more chest pain. No fever or chills. PAST MEDICAL HISTORY 1. severe COPD, 2. 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 Pablo. 3. Small pleural effusion. MEDICATIONS Currently taking 1. Solu-Medrol 40 mg q. 8-hour. 2. Ceftin 500 mg q. 12-hour 3. Lorazepam p.r.n. 4. Reglan p.r.n. 5. Plavix 75 mg a day. 6. Zithromax 500 mg 7. Albuterol/Atrovent nebulizer treatment. 8. Metoprolol 12.5 mg q.12 h. 9. Lipitor 40 mg a day. 10. Protonix 40 mg a day. 11. Aspirin 81 mg daily. ALLERGIES PRILOSEC. SOCIAL HISTORY He has history of smoking in the past. No alcohol or drug use. FAMILY HISTORY He is , lives with his . REVIEW OF SYSTEMS He walks only short distance, uses oxygen all the time. Has lost weight. No DVT or pulmonary embolism. PHYSICAL EXAMINATION GENERAL: Frail elderly male mildly short of breath. VITAL SIGNS: Blood pressure 118/68. Heart exam was 74, respirations 22, temperature 97, saturation 94% on 4 liters nasal cannula. HEENT: Examination unremarkable. NECK: Supple. CHEST: She has few rales. CARDIOVASCULAR: S1, S2 normal. ABDOMEN: Soft, nondistended. Bowel sounds present. EXTREMITIES: No edema. VEGETABLE WORKER: Alert and oriented times three. No focal deficit. LABORATORY DATA Wbc 7.7, hemoglobin 13.6, hematocrit 41.7, MCV 82, platelet count 394. Sodium 140, potassium 5.5, chloride 103, CO2 26, BUN 34, creatinine 1.39. IMPRESSION 1. Severe chronic obstructive pulmonary disease 2. Coronary artery disease status post stent placement. 3. Cancer of the lung status post radiation treatment 4. Lung infiltrate. 5. Hypoxia. PLAN Discussed with patient. He feels much better. We will continue aerosol treatments with albuterol and Atrovent. Supplement his oxygen, IV Solu-Medrol will change to p.o. steroid tomorrow. Continue antibiotics. He had a stent placed today. Further treatment will depend on the course in the hospital. Thank you, Dr. Greenwood, for this consultation. MD ALEXEI Gaston/ /8:14 PM /8:20 PM
[2016-08-20] MEDS: CEFUROXIME AXETIL 500 MG TAB PO SCH (21:33)
[2016-08-20] MEDS: ATORVASTATIN 40 MG TAB PO SCH (21:34)
[2016-08-21] VITALS (13 sets, daily range): BP systolic 107–116; BP diastolic 55–67; PULSE 64–76; RESP 18–20; TEMP 97.4–97.6; O2SAT 91–97
[2016-08-21] MEDS: methylPREDNISolone SOD SUCC 40 MG/1 ML VIAL IV SCH ×2 (00:49→07:34)
[2016-08-21] MEDS: RESP: ALBUTEROL 2.5 MG/IPRATROPIUM 0.5 MG NEB (SCH) NEB ×4 (00:53→11:06)
[2016-08-21] MEDS: AZITHROMYCIN 500 MG/NS 250 ML IV SCH ×2 (03:13)
[2016-08-21 04:55] LABS: AUTOMATED NEUTROPHIL # 17.7 TH/MM3 (1.8-7.7); BASOPHIL % 0.1 % (0.0-2.0); HEMATOCRIT 35.8 % (39.0-51.0); HEMO FLAGS DIFF FINAL; LYMPH % 1.5 % (9.0-44.0); LYMPHOCYTE # 0.3 TH/MM3 (1.0-4.8); MEAN CELL VOLUME 81.3 FL (80.0-100.0); MEAN CORPUSCULAR HEMOGLOBIN 27.1 PG (27.0-34.0); MEAN CORPUSCULAR HGB CONC 33.3 % (32.0-36.0); NEUT % 95.4 % (16.0-70.0); PLATELET COUNT 375 TH/MM3 (150-450); RED BLOOD COUNT 4.41 MIL/MM3 (4.50-5.90); RED CELL DISTRIBUTION WIDTH 15.3 % (11.6-17.2); WHITE BLOOD COUNT 18.5 TH/MM3 (4.0-11.0)
[2016-08-21 05:21] LABS: BICARBONATE 22.5 MEQ/L (21.0-32.0); POTASSIUM 4.2 MEQ/L (3.5-5.1)
[2016-08-21] MEDS: PANTOPRAZOLE SODIUM 40 MG VIAL IV SCH (07:33)
[2016-08-21] MEDS: METOPROLOL TARTRATE 25 MG TAB PO SCH (07:34)
[2016-08-21] MEDS: CEFUROXIME AXETIL 500 MG TAB PO SCH (07:34)
[2016-08-21] MEDS: ASPIRIN EC 81 MG TABEC PO SCH (07:35)
[2016-08-21] MEDS: CLOPIDOGREL 75 MG TAB PO SCH (07:35)
[2016-08-21] MEDS: SODIUM CHLORIDE 0.9% FLUSH 5 ML FLUSH FLUSH SCH (07:35)
--- NOTE | 2016-08-21 07:50 | PD.CARD.PN ---
Subjective Subjective Remarks no events doing well Objective Medications Active Medications Atropine Sulfate 0.5 mg 0.5 mg UNSCH PRN IV; Start 08/20/16 at 09:45 Bacitracin (Bacitracin Oint Packet) 0.9 gm ONCE ONCE TOP; Start 08/20/16 at 10: 00; Stop 08/20/16 at 10:01; Status DC Bivalirudin (Angiomax Inj) 250 mg STK-MED ONCE .ROUTE Last administered on 09:06; Admin Dose 250 MG; Start 08/20/16 at 08:40; Stop 08/20/16 at 08:41; Status DC Bivalirudin/ Sodium Chloride (Angiomax Inj/NS Inj) 50 ml @ 0 mls/hr Q0M IV; Start 08/20/16 at 09:38; Stop 08/20/16 at 13:37; Status DC Cefuroxime Axetil (Ceftin) 500 mg Q12HR PO Last administered on 08/21/16 07:34 ; Admin Dose 500 MG; Start 08/20/16 at 21:00 Clopidogrel Bisulfate 75 mg 75 mg DAILY PO Last administered on 08/21/16 07:35 ; Admin Dose 75 MG; Start 08/20/16 at 09:00 Fentanyl Citrate (fentaNYL INJ) 100 mcg STK-MED ONCE .ROUTE Last administered on 08/20/16 09:00; Admin Dose 100 MCG; Start 08/20/16 at 08:41; Stop 08/20/16 at 08:42; Status DC Heparin Sodium/ Sodium Chloride (Heparin-NS/Pf Inj) 500 ml @ As Directed STK- MED ONCE .ROUTE Last administered on 08/20/16 08:39; Admin Dose 500 MLS/HR; Start 08/20/16 at 08:39; Stop 08/20/16 at 08:40; Status DC Lidocaine HCl (Xylocaine 1% Inj (50 ml)) 10 ml UNSCH PRN INFIL; Start 08/20/16 at 09:45; Stop 08/21/16 at 09:44 Lidocaine HCl 1 applic 1 applic UNSCH PRN TOP; Start 08/20/16 at 09:45 Lorazepam (Ativan Inj) 0.5 mg UNSCH PRN IV; Start 08/20/16 at 09:45; Stop 08/21 at 09:44 Methylprednisolone Sodium Succinate (SoluMEDROL INJ) 40 mg Q8H IV Last administered on 08/21/16 07:34; Admin Dose 40 MG; Start 08/21/16 at 00:00 Metoclopramide HCl (Reglan Inj) 5 mg Q4H PRN IV; Start 08/20/16 at 09:45 Midazolam HCl (Versed Inj) 2 mg STK-MED ONCE .ROUTE Last administered on 08:58; Admin Dose 2 MG; Start 08/20/16 at 08:40; Stop 08/20/16 at 08:41; Status DC Miscellaneous Information 1 ONCE ONCE XX; Start 08/20/16 at 09:45; Stop at 10:04; Status DC Nitroglycerin (Nitroglycerin Inj) 5 ml @ As Directed STK-MED ONCE .ROUTE; Start 08/20/16 at 08:40; Stop 08/20/16 at 08:41; Status DC Ondansetron HCl (Zofran Inj) 4 mg Q4H PRN IV; Start 08/20/16 at 09:45 Sodium Polystyrene Sulfonate (Kayexalate Liq) 15 gm ONCE ONCE PO Last administered on 08/20/16 17:00; Admin Dose 15 GM; Start 08/20/16 at 17:00; Stop 08/20/16 at 17:02; Status DC Sodium Chloride 1,000 ml @ 100 mls/hr Q10H IV Last administered on 08/20/16 11 :35; Admin Dose 100 MLS/HR; Start 08/20/16 at 09:38; Stop 08/20/16 at 21:37; Status DC Sodium Chloride (NS 250 ml Inj) 250 ml @ 500 mls/hr ONCE PRN IV; Start at 09:45; Stop 08/21/16 at 09:44 Sterile Water 10 ml 10 ml STK-MED ONCE .ROUTE Last administered on 08/20/16 09: 06; Admin Dose 10 ML; Start 08/20/16 at 08:40; Stop 08/20/16 at 08:41; Status DC Vital Signs / I&O Vital Signs Date Time Temp Pulse Resp B/P Pulse Ox O2 Delivery O2 Flow Rate FiO2 08/21/16 07:21 91 Nasal Cannula 2.00 08/21/16 06:00 72 08/21/16 05:00 72 08/21/16 04:00 70 08/21/16 03:28 97.6 72 20 107/55 94 08/21/16 03:00 70 08/21/16 02:00 76 08/21/16 01:00 64 08/21/16 00:41 97.4 65 18 113/60 97 08/21/16 00:00 67 08/20/16 23:00 68 08/20/16 22:00 72 08/20/16 21:00 74 08/20/16 20:18 91 Nasal Cannula 5.00 08/20/16 20:00 97.6 73 18 112/53 94 08/20/16 20:00 72 08/20/16 19:00 78 08/20/16 11:00 97.2 74 20 118/68 94 08/20/16 10:05 97.3 63 18 133/64 93 08/20/16 09:45 97.4 61 18 123/65 96 08/20/16 07:56 93 Nasal Cannula 5.00 I/O 08/20/16 08/20/16 08/20/16 08/21/16 08/21/16 08/21/16 07:00 15:00 23:00 07:00 15:00 23:00 Intake Total 600 ml 2970 ml 360 ml Output Total 850 ml 350 ml Balance -250 ml 2970 ml 10 ml Intake Oral 600 ml 600 ml 360 ml IV Total 2370 ml Output Urine Total 850 ml 350 ml # Voids 1 4 # Bowel Movements 0 Physical Exam GENERAL: SKIN: Warm and dry. HEAD: Normocephalic. EYES: No scleral icterus. No injection or drainage. NECK: Supple, trachea midline. No JVD or lymphadenopathy. CARDIOVASCULAR: Regular rate and rhythm without murmurs, gallops, or rubs. RESPIRATORY: Breath sounds equal bilaterally. No accessory muscle use. GASTROINTESTINAL: Abdomen soft, non-tender, nondistended. MUSCULOSKELETAL: No cyanosis, or edema. BACK: Nontender without obvious deformity. No CVA tenderness. Laboratory Laboratory Tests Test 08/21/16 04:20 White Blood Count 18.5 TH/MM3 Red Blood Count 4.41 MIL/MM3 Hemoglobin 11.9 GM/DL Hematocrit 35.8 % Mean Corpuscular Volume 81.3 FL Mean Corpuscular Hemoglobin 27.1 PG Mean Corpuscular Hemoglobin 33.3 % Concent Red Cell Distribution Width 15.3 % Platelet Count 375 TH/MM3 Mean Platelet Volume 7.9 FL Neutrophils (%) (Auto) 95.4 % Lymphocytes (%) (Auto) 1.5 % Monocytes (%) (Auto) 3.0 % Eosinophils (%) (Auto) 0.0 % Basophils (%) (Auto) 0.1 % Neutrophils # (Auto) 17.7 TH/MM3 Lymphocytes # (Auto) 0.3 TH/MM3 Monocytes # (Auto) 0.5 TH/MM3 Eosinophils # (Auto) 0.0 TH/MM3 Basophils # (Auto) 0.0 TH/MM3 CBC Comment DIFF FINAL Differential Comment Sodium Level 142 MEQ/L Potassium Level 4.2 MEQ/L Chloride Level 106 MEQ/L Carbon Dioxide Level 22.5 MEQ/L Anion Gap 14 MEQ/L Blood Urea Nitrogen 41 MG/DL Creatinine 1.66 MG/DL Estimat Glomerular Filtration 40 ML/MIN Rate Random Glucose 156 MG/DL Calcium Level 7.9 MG/DL Total Creatine Kinase 29 U/L Triglycerides Level 85 MG/DL Cholesterol Level 144 MG/DL LDL Cholesterol 87 MG/DL HDL Cholesterol 40.0 MG/DL Cholesterol/HDL Ratio 3.60 RATIO Imaging Last Impressions Chest X-Ray 08/19/16 0000 Signed Impressions: Service Date/Time: Friday, August 19, 2016 21:46 - CONCLUSION: There is a new patchy infiltrate in the right lower lung suggestive of pneumonia. No change in the mass in the left midlung. Jose Greco MD Assessment and Plan Problem List: (1) CAD (coronary artery disease) (2) NSTEMI (non-ST elevated myocardial infarction) Assessment and Plan s/p high risk PCI [place] x1 to proximal LAD [place] x 2 to RCA asa plavix bb statin Cr slightly elevated at baseline. DC home today FU PCP in 1 week BMP in 1 week FU with cardio in 2 weeks Elvin Farmer MD Aug 21, 2016 07:50
--- NOTE | 2016-08-21 09:39 | HHI.FF ---
Face to Face Verification Diagnosis: (1) NSTEMI (non-ST elevated myocardial infarction) (2) COPD with acute exacerbation (3) Hypoxia (4) Dyspnea (5) Pneumonia Physical Therapy Order: Evaluate and Treat, Strength and gait training Occupational Therapy Order: Improve ADL Home Health Nursing Order: Signs/symptoms of disease process Oxygen administration education Nursing assessment with vital signs I have seen patient Reid Navarro on 08/21/16. My clinical findings support the need for the requested home health care services because: Deconditioned w/ increased weakness I certify that my clinical findings support that this patient is homebound because: Unsteady gait/balance Kassy Granger Aug 21, 2016 09:39
--- NOTE | 2016-08-21 09:39 | HHI.PR ---
Subjective Subjective Remarks no chest pain no sob up in chair appetite good. (Kassy Granger) Review of Systems Constitutional Constitutional: Weakness Constitutional Remarks 10 point ROS done, generalized weakness, exertional SOB otherwise negative ( Kassy Granger) Pulmonary Respiratory: Shortness of Breath (exertional) (Kassy Granger) Cardiology CV: Chest Pain (none) (Kassy Granger) Musculoskeletal MS: Weakness (improving) (Kassy Granger) Psychiatric Psychiatric: Normal Mood (Kassy Granger) Vitals/Results Intake & Output 08/20/16 08/20/16 08/21/16 15:00 23:00 07:00 Intake Total 2970 ml 360 ml Output Total 350 ml Balance 2970 ml 10 ml Intake Oral 600 ml 360 ml IV Total 2370 ml Output Urine Total 350 ml # Voids 1 4 # Bowel Movements 0 Vital Signs Vital Signs Date Time Temp Pulse Resp B/P Pulse Ox O2 Delivery O2 Flow Rate FiO2 08/21/16 07:48 97.5 71 20 116/67 92 08/21/16 07:48 92 2.00 08/21/16 07:48 71 08/21/16 07:21 91 Nasal Cannula 2.00 08/21/16 06:00 72 08/21/16 05:00 72 08/21/16 04:00 70 08/21/16 03:28 97.6 72 20 107/55 94 08/21/16 03:00 70 08/21/16 02:00 76 08/21/16 01:00 64 08/21/16 00:41 97.4 65 18 113/60 97 08/21/16 00:00 67 08/20/16 23:00 68 08/20/16 22:00 72 08/20/16 21:00 74 08/20/16 20:18 91 Nasal Cannula 5.00 08/20/16 20:00 97.6 73 18 112/53 94 08/20/16 20:00 72 08/20/16 19:00 78 08/20/16 11:00 97.2 74 20 118/68 94 08/20/16 10:05 97.3 63 18 133/64 93 08/20/16 09:45 97.4 61 18 123/65 96 (ElkinKassyrigoberto EVANS) CBC/BMP: 08/21/16 0420 08/21/16 0420 Lab Results Laboratory Tests Test 08/21/16 04:20 White Blood Count 18.5 TH/MM3 Red Blood Count 4.41 MIL/MM3 Hemoglobin 11.9 GM/DL Hematocrit 35.8 % Mean Corpuscular Volume 81.3 FL Mean Corpuscular Hemoglobin 27.1 PG Mean Corpuscular Hemoglobin 33.3 % Concent Red Cell Distribution Width 15.3 % Platelet Count 375 TH/MM3 Mean Platelet Volume 7.9 FL Neutrophils (%) (Auto) 95.4 % Lymphocytes (%) (Auto) 1.5 % Monocytes (%) (Auto) 3.0 % Eosinophils (%) (Auto) 0.0 % Basophils (%) (Auto) 0.1 % Neutrophils # (Auto) 17.7 TH/MM3 Lymphocytes # (Auto) 0.3 TH/MM3 Monocytes # (Auto) 0.5 TH/MM3 Eosinophils # (Auto) 0.0 TH/MM3 Basophils # (Auto) 0.0 TH/MM3 CBC Comment DIFF FINAL Differential Comment Sodium Level 142 MEQ/L Potassium Level 4.2 MEQ/L Chloride Level 106 MEQ/L Carbon Dioxide Level 22.5 MEQ/L Anion Gap 14 MEQ/L Blood Urea Nitrogen 41 MG/DL Creatinine 1.66 MG/DL Estimat Glomerular Filtration 40 ML/MIN Rate Random Glucose 156 MG/DL Calcium Level 7.9 MG/DL Total Creatine Kinase 29 U/L Triglycerides Level 85 MG/DL Cholesterol Level 144 MG/DL LDL Cholesterol 87 MG/DL HDL Cholesterol 40.0 MG/DL Cholesterol/HDL Ratio 3.60 RATIO Imaging Remarks Last Impressions Chest X-Ray 08/19/16 0000 Signed Impressions: Service Date/Time: Friday, August 19, 2016 21:46 - CONCLUSION: There is a new patchy infiltrate in the right lower lung suggestive of pneumonia. No change in the mass in the left midlung. Jose Greco MD Current Medications Active Medications Atropine Sulfate 0.5 mg 0.5 mg UNSCH PRN IV; Start 08/20/16 at 09:45 Bacitracin (Bacitracin Oint Packet) 0.9 gm ONCE ONCE TOP; Start 08/20/16 at 10: 00; Stop 08/20/16 at 10:01; Status DC Bivalirudin/ Sodium Chloride (Angiomax Inj/NS Inj) 50 ml @ 0 mls/hr Q0M IV; Start 08/20/16 at 09:38; Stop 08/20/16 at 13:37; Status DC Cefuroxime Axetil (Ceftin) 500 mg Q12HR PO Last administered on 08/21/16 07:34 ; Admin Dose 500 MG; Start 08/20/16 at 21:00 Lidocaine HCl (Xylocaine 1% Inj (50 ml)) 10 ml UNSCH PRN INFIL; Start 08/20/16 at 09:45; Stop 08/21/16 at 09:44 Lidocaine HCl 1 applic 1 applic UNSCH PRN TOP; Start 08/20/16 at 09:45 Lorazepam (Ativan Inj) 0.5 mg UNSCH PRN IV; Start 08/20/16 at 09:45; Stop 08/21 at 09:44 Methylprednisolone Sodium Succinate (SoluMEDROL INJ) 40 mg Q8H IV Last administered on 08/21/16 07:34; Admin Dose 40 MG; Start 08/21/16 at 00:00 Metoclopramide HCl (Reglan Inj) 5 mg Q4H PRN IV; Start 08/20/16 at 09:45 Miscellaneous Information 1 ONCE ONCE XX; Start 08/20/16 at 09:45; Stop at 10:04; Status DC Ondansetron HCl (Zofran Inj) 4 mg Q4H PRN IV; Start 08/20/16 at 09:45 Sodium Polystyrene Sulfonate (Kayexalate Liq) 15 gm ONCE ONCE PO Last administered on 08/20/16 17:00; Admin Dose 15 GM; Start 08/20/16 at 17:00; Stop 08/20/16 at 17:02; Status DC Sodium Chloride 1,000 ml @ 100 mls/hr Q10H IV Last administered on 08/20/16 11 :35; Admin Dose 100 MLS/HR; Start 08/20/16 at 09:38; Stop 08/20/16 at 21:37; Status DC Sodium Chloride (NS 250 ml Inj) 250 ml @ 500 mls/hr ONCE PRN IV; Start at 09:45; Stop 08/21/16 at 09:44 (Kassy Granger. HAND SPLITTER) Physical Exam General General Appearance: No Acute Distress, Comfortable, Malnourished Appearance Remarks thin (Kassy Granger. HAND SPLITTER) Eyes Eye Exam: Pupils Equal, Sclera White, Extraocular Movement Intact (Kassy Granger M. HAND SPLITTER) Ears & Nose Ears & Nose Exam: Nasal Mucosa [place] (Kassy Granger M. HAND SPLITTER) Throat Throat Exam: Oral Mucosa [place] & Moist (Kassy Granger M. HAND SPLITTER) Neck Neck Exam: Neck Supple, Trachea Midline (Kassy Granger M. HAND SPLITTER) Pulmonary Resp Exam: Breath Sounds Equal, No Distress, Rhonchi, Diminished Breath Sounds Resp Remarks Has O2 at home (Kassy Granger. HAND SPLITTER) Cardiology CV Exam: Regular, Normal Sinus Rhythm (Kassy Granger M. HAND SPLITTER) Gastrointestinal/Abdomen GI Exam: Soft, Non-Tender, Bowel Sounds Present (Kassy Granger M. HAND SPLITTER) Musculoskeletal MS Exam: Atrophy (mild muscular) (Kassy Granger M. HAND SPLITTER) Integumentary Skin Exam: Warm, Dry (Kassy Granger M. HAND SPLITTER) Extremeties Extremities Exam: No Edema (Kassy Granger M. HAND SPLITTER) Neurologic Neuro Exam: Alert, Awake, Oriented, Speech Clear, Moving All Extremities ( Kassy Granger M. HAND SPLITTER) Psychiatric Psych Exam: Appropriate Responses (Kassy Granger M. HAND SPLITTER) VTE Prophylaxis VTE Prophylaxis Device: SCDs (Kassy Granger M. HAND SPLITTER) PUD Prophylasis PUD Prophylaxis: Protonix (Kassy Granger M. HAND SPLITTER) Assessment/Plan Assessment/Plan ASSESSMENT s/p ACS / NSTEMI MV CAD ARF/CKD severe COPD Hx Of Lung Ca s/p XRT tx in past HTN frail /elderly pt PLAN Vital signs and labs reviewed, blood pressure stable, pulse stable ,respiratory rate stable, afebrile S/p cardiac cath on 08/16/16: Severe [place] three-vessel coronary artery disease. Stents 3, no chest pain, no acute shortness of breath. Alert, hoping to go home. Continue aspirin and Plavix, low-dose beta alexa and statin Leukocytosis, probable secondary to steroid use CVSx input appreciated , Acute kidney injury, mildly elevated, status post heart catheter. Patient encouraged for hydration Potassium level normal today labs reviewed COPD Infiltrate right lower lung, occasional cough without sputum production IV rocephin/Zithromax IV solumedrol aerosol tx resident services manager for discharge planning, working on possible discharge today or tomorrow. Patient is hoping hoping to return home with , home health d/w PT d/w Dr. Greenwood d/w nurse (Kassy Granger) Assessment/Plan pt is seen & examined d/w PT feels well No CP Breathing is much better occ cough , no sputum ambulating in the room independently on 2 liters NC WBC up likely d/t steroids cleared by card medically stable for d.c d/w Dr Mckeon , he is ok also ' d/w kassy d/w RN see Orders f/u pcp/card/pulmonary (Reg Greenwood MD) Kassy Granger Aug 21, 2016 09:39 Reg Greenwood MD Aug 21, 2016 11:17
[2016-08-21] MEDS ORDERED: ASPI81TA11 PO (11:26)
[2016-08-21] MEDS ORDERED: PLAV75TA29 PO (11:26)
[2016-08-21] MEDS ORDERED: LIPI40TA PO (11:26)
[2016-08-21] MEDS ORDERED: METO25TA3 PO (11:26)
[2016-08-21] MEDS ORDERED: CEFT500T3 PO (11:26)
--- NOTE | 2016-08-21 18:46 | HHI.DS ---
Discharge Summary Admission Date Aug 16, 2016 at 04:42 Discharge Date: Aug 21, 2016 Admitting Diagnosis NSTEMI, dyspnea, COPD exacerbation Brief History This was a pleasant 85-year-old white male who had complained of increased shortness of breath for the past few weeks. He did use O2 at home and was very aware of how to adjust his oxygen level to maintain his O2 sat between 90 and 94. He did note for no apparent reason the shortness of breath had continued to increase, became worse over the last three or four days. The patient also noted midsternal chest pain over the last week to 10 days which had continued to increase in intensity last p.m. The patient denied any acute shortness of breath and stated that the pain radiates into his neck and jaw. He did not note any numbness or tingling in his extremities. The patient wAs positive for a nonproductive cough. He was treated for pneumonia back in April and June but stated that he has had no fever, no chills, no body aches since that time. CBC/BMP: 08/21/16 0420 08/21/16 0420 Significant Findings Laboratory Tests Test 08/19/16 08/19/16 08/20/16 08/21/16 05:45 22:15 05:45 04:20 Neutrophils (%) (Auto) 84.1 % 95.4 % (16.0-70.0) (16.0-70.0) Lymphocytes (%) (Auto) 6.9 % 1.5 % (9.0-44.0) (9.0-44.0) Neutrophils # (Auto) 9.0 TH/MM3 17.7 TH/MM3 (1.8-7.7) (1.8-7.7) Lymphocytes # (Auto) 0.7 TH/MM3 0.3 TH/MM3 (1.0-4.8) (1.0-4.8) Blood Urea Nitrogen 38 MG/DL (7-18) 34 MG/DL (7-18) 41 MG/DL (7-18) Creatinine 1.37 MG/DL 1.39 MG/DL 1.66 MG/DL (0.60-1.30) (0.60-1.30) (0.60-1.30) Estimat Glomerular Filtration 50 ML/MIN (>89) 49 ML/MIN (>89) 40 ML/MIN (>89) Rate Random Glucose 72 MG/DL 109 MG/DL 156 MG/DL (74-106) (74-106) (74-106) Calcium Level 8.3 MG/DL 8.3 MG/DL 7.9 MG/DL (8.5-10.1) (8.5-10.1) (8.5-10.1) Blood Gas HCO3 20 mmol/L (22-26) Blood Gas Base Excess -3.2 mmol/L (-2-2) Arterial Blood pH 7.45 (7.380-7.420) Arterial Blood Partial 30 mmHg (38-42) Pressure CO2 Arterial Blood Partial 138 mmHg Pressure O2 (61-120) Mean Corpuscular Hemoglobin 26.9 PG (27.0-34.0) Platelet Function P2Y12 React 182 PRU Units (194-418) Potassium Level 5.5 MEQ/L (3.5-5.1) White Blood Count 18.5 TH/MM3 (4.0-11.0) Red Blood Count 4.41 MIL/MM3 (4.50-5.90) Hemoglobin 11.9 GM/DL (13.0-17.0) Hematocrit 35.8 % (39.0-51.0) Total Creatine Kinase 29 U/L (39-308) Imaging Last Impressions Chest X-Ray 08/19/16 0000 Signed Impressions: Service Date/Time: Friday, August 19, 2016 21:46 - CONCLUSION: There is a new patchy infiltrate in the right lower lung suggestive of pneumonia. No change in the mass in the left midlung. Jose Greco MD PE at Discharge Appearance Remarks thin Eyes Eye Exam: Pupils Equal, Sclera White, Extraocular Movement Intact Ears & Nose Ears & Nose Exam: Nasal Mucosa [place] Throat Throat Exam: Oral Mucosa [place] & Moist Neck Neck Exam: Neck Supple, Trachea Midline Pulmonary Resp Exam: Breath Sounds Equal, No Distress, Rhonchi, Diminished Breath Sounds Resp Remarks Has O2 at home Cardiology CV Exam: Regular, Normal Sinus Rhythm Gastrointestinal/Abdomen GI Exam: Soft, Non-Tender, Bowel Sounds Present Musculoskeletal MS Exam: Atrophy (mild muscular) Integumentary Skin Exam: Warm, Dry Extremeties Extremities Exam: No Edema Neurologic Neuro Exam: Alert, Awake, Oriented, Speech Clear, Moving All Extremities Psychiatric Psych Exam: Appropriate Responses VTE Prophylaxis VTE Prophylaxis Device: SCDs PUD Prophylasis PUD Prophylaxis: Protonix Hospital Course In the ER ,The patient was given aspirin and nitroglycerin on arrival from EMS but it did not alleviate his chest pain. Currently the patient denies any nausea, vomiting, abdominal pain. No headache. No diarrhea or constipation. The patient does note a normal bowel movement this morning. His appetite has been normal. He does admit to some weight loss over the past year. The patient does have a history of lung cancer and started treatment approximately five years ago. He does have a director of materials, Dr. Siegel, who patient states he has been in remission. While describing the chest pain he describes it as a pressure sensation as well as a tightness that wraps around his chest. EKG was just performed in the room with no acute ST elevation noted. On admission these are the acute diagnosis use for the plan of care and treatment during this hospital stay. s/p ACS / NSTEMI MV CAD ARF/CKD severe COPD Hx Of Lung Ca s/p XRT tx in past HTN frail /elderly pt PLAN of care Vital signs and labs reviewed, blood pressure stable, pulse stable ,respiratory rate stable, afebrile S/p cardiac cath on 08/16/16: Severe [place] three-vessel coronary artery disease. Stents 3, no chest pain, no acute shortness of breath. Alert, hoping to go home. Continue aspirin and Plavix, low-dose beta alexa and statin Leukocytosis, probable secondary to steroid use CVSx input appreciated , Acute kidney injury, mildly elevated, status post heart catheter. Patient encouraged for hydration Potassium level normal today labs reviewed COPD Infiltrate right lower lung, occasional cough without sputum production IV rocephin/Zithromax IV solumedrol aerosol tx Patient was evaluated and found to be stable for discharge today. Patient was hopeful to return home with his and have assistance from home health. Case management was involved to assist with this plan of care. This was discussed with nurse as well as patient. Labs were monitored and reviewed as well as vital signs. Patient was afebrile with no acute issues. Stable for discharge surgical services tech for discharge planning, working on possible discharge today or tomorrow. Patient is hoping hoping to return home with , home health pt is seen & examined per Dr. Suarez d/w PT feels well No CP Breathing is much better occ cough , no sputum ambulating in the room independently on 2 liters NC WBC up likely d/t steroids cleared by [facility] medically stable for d.c d/w Dr Mckeon , he is ok also ' d/w kassy d/w RN see Orders f/u pcp/card/pulmonary Pt Condition on Discharge: Stable Discharge Disposition: Disch w/ Home Health Serv Discharge Instructions DIET: Follow Instructions for: Heart Healthy Diet Fluid Restrictions: none Activities you can perform: Regular-No Restrictions Other Activity Instructions: avoid exertional activities till cleard by Kassy Gardiner Aug 21, 2016 18:46
--- NOTE | 2016-08-21 19:46 | EKG ---
Date Performed: 08/21/2016 Time Performed: 05:46:06 PTAGE: 85 years EKG: Sinus rhythm Left axis deviation Abnormal ECG PREVIOUS TRACING : 08/16/2016 07.51 Compared to prior tracing no significant change DOCTOR: Elizabeth Zambrano Interpretating Date/Time 08/21/2016 19:45:44
--- NOTE | 2016-11-26 12:07 | RSPPFT ---
DATE OF PROCEDURE: 08/16/16 COMMENTS: Spirometry with FVC of 3.1, FEV1 of 1.7, FEV1/FVC ratio at 55%. IMPRESSION: 1. Moderately severe airways obstruction. 2. Post-bronchodilator study was not performed.
== END 2016-08-21 12:50 | disposition home health service (06) | DRG 247 ==
LOC: NEPC 02:25 → NEDA 04:42 → NEDH 10:23 → HCIS 15:26
PROVIDERS: ADMIT Internal Medicine; ATTEND Internal Medicine
PROC: 4A023N7 Measurement of Cardiac Sampling and Pressure, Left Heart, Percutaneous Approach (ICD-10-PCS; 2016-08-16)
PROC: B2111ZZ Fluoroscopy of Multiple Coronary Arteries using Low Osmolar Contrast (ICD-10-PCS; 2016-08-16)
PROC: B2151ZZ Fluoroscopy of Left Heart using Low Osmolar Contrast (ICD-10-PCS; 2016-08-16)
PROC: 5A09357 Assistance with Respiratory Ventilation, Less than 24 Consecutive Hours, Continuous Positive Airway Pressure (ICD-10-PCS; 2016-08-16)
PROC: 4A023N7 Measurement of Cardiac Sampling and Pressure, Left Heart, Percutaneous Approach (ICD-10-PCS; 2016-08-20)
PROC: B2111ZZ Fluoroscopy of Multiple Coronary Arteries using Low Osmolar Contrast (ICD-10-PCS; 2016-08-20)
PROC: 027136Z Dilation of Coronary Artery, Two Arteries with Three Drug-eluting Intraluminal Devices, Percutaneous Approach (ICD-10-PCS; principal; 2016-08-20 08:30)
DX: I21.4 Non-ST elevation (NSTEMI) myocardial infarction (principal); N17.9 Acute kidney failure, unspecified; J44.1 Chronic obstructive pulmonary disease with (acute) exacerbation; J44.0 Chronic obstructive pulmonary disease with (acute) lower respiratory infection; I25.10 Atherosclerotic heart disease of native coronary artery without angina pectoris; Z99.81 Dependence on supplemental oxygen; Z85.118 Personal history of other malignant neoplasm of bronchus and lung; E78.5 Hyperlipidemia, unspecified; H91.90 Unspecified hearing loss, unspecified ear; E07.9 Disorder of thyroid, unspecified; N18.9 Chronic kidney disease, unspecified; I12.9 Hypertensive chronic kidney disease with stage 1 through stage 4 chronic kidney disease, or unspecified chronic kidney disease; E78.00 Pure hypercholesterolemia, unspecified; Z85.46 Personal history of malignant neoplasm of prostate; Z92.3 Personal history of irradiation; Z87.891 Personal history of nicotine dependence
CPT/HCPCS: 36600; 71010; 76937; 80048; 80053; 80061; 81001; 82550; 82552; 82805; 82948; 83605; 83735; 83880; 84484; 85007; 85025; 85027; 85576; 85610; 85730; 86850; 86900; 86901; 87040; 92928; 92929; 93005; 93306; 93454; 94002; 94010; 94640; 94664; 96365; 96368; 96375; 96376; C1725; C1769; C1874; C1887; C1893; C9113; J0456; J0583; J0696; J1644; J2250; J2920; J2930; J3010; J3480; J7030; J7040; J7050; Q9967

== ENCOUNTER 2016-08-30 15:38 | Inpatient (IN) | payer MEDICARE ==
[2016-08-30] VITALS (8 sets, daily range): BP systolic 99–170; BP diastolic 57–79; PULSE 72–82; RESP 18–32; TEMP 98.2; O2SAT 92–97
[~2016-08-30] VITALS: Ht 167.6 cm; Wt 48.7 kg
[~2016-08-30 15:38] MED LIST changes: -AMLO10TA2 PO; +ASPI81TA11 PO; +CEFT500T3 PO; -FLUT1INH INH; -LEVO500T3 PO; +LIPI40TA PO; -LOVA40TA PO; +METO25TA3 PO; +PLAV75TA29 PO
[2016-08-30] MEDS ORDERED: SODIUM CHLORIDE 0.9% FLUSH 10 ML FLUSH IVF PRN (15:45)
--- NOTE | 2016-08-30 16:03 | PD ---
HPI Chief Complaint: shortness of breath Time Seen by Provider: 15:41 Travel History International Travel<30 days: No Contact w/Intl Traveler<30days: No History of Present Illness HPI This is an 85-year-old male who is on 5 L nasal cannula at baseline for COPD who also recently was admitted in the setting of an STEMI who presents to the emergency department with increasing shortness of breath it's been going on today, constant, severe, associated with a nonproductive cough. He denies any fevers or chills. He says he's had pneumonia twice in the past several months and this feels similar. History is limited as the patient is in moderate respiratory distress. When EMS arrived at the patient's primary care physician office his oxygen saturation was in the 80s. He evidently was significantly short of breath. They administered 3 bronchodilator treatments, Solu-Medrol, 0.3 mg of epinephrine subcutaneous, and magnesium. PFSH Past Medical History Hx Anticoagulant Therapy: No Anxiety: No Depression: Yes Cancer: Yes (PROSTATE, LUNG) Cardiovascular Problems: Yes High Cholesterol: Yes Chest Pain: Yes Congestive Heart Failure: No COPD: Yes Coronary Artery Disease: No Diabetes: No Diminished Hearing: Yes Endocrine: Yes Gastrointestinal Disorders: No Genitourinary: No Hepatitis: No Hiatal Hernia: No Hypertension: Yes Immune Disorder: No Implanted Vascular Access Dvce: No Musculoskeletal: No Neurologic: No Psychiatric: No Reproductive: No Respiratory: Yes (COPD; LUNG CA 2011) Radiation Therapy: Yes Sleep Apnea: No Thyroid Disease: Yes (HYPOTHYROIDISM) Past Surgical History Abdominal Surgery: Yes (HERNIA) Cardiac Surgery: Yes (CAROTID ENDARTER ECTOMY 1989) Ear Surgery: No Endocrine Surgery: No Eye Surgery: No Genitourinary Surgery: No Gynecologic Surgery: No Neurologic Surgery: No Oral Surgery: No Thoracic Surgery: No Other Surgery: Yes Social History Alcohol Use: No Tobacco Use: No (FORMER) Substance Use: No Allergies-Medications (Allergen,Severity, Reaction): Coded Allergies: Prilosec (Verified Adverse Reaction, Intermediate, abdominal pain, 08/30/16 ) per patient Reported Meds & Prescriptions Reported Meds & Active Scripts Active Lipitor (Atorvastatin Calcium) 40 Mg Tab 40 Mg PO HS Plavix (Clopidogrel Bisulfate) 75 Mg Tab 75 Mg PO DAILY Aspirin EC (Aspirin) 81 Mg Tabdr 81 Mg PO DAILY Reported Oxygen tank (Oxygen) 1 Ea Tank 2 JEMAL.CANULA CONTINUOUS Oxygen Concentrator Portable Gaseous 2 L/min via Nasal Cannula Continuous For 99 months Metoprolol Tartrate 50 Mg Tab 50 Mg PO BID Omeprazole 20 Mg Tab 20 Mg PO DAILY Spiriva Handihaler (Tiotropium Inh) 18 Mcg Cap 18 Mcg INH DAILY 1 capsule = 18 mcg Levothyroxine (Levothyroxine Sodium) 75 Mcg Tab 75 Mcg PO DAILY Review of Systems Except as stated in HPI: all other systems reviewed are Neg Physical Exam Narrative GENERAL: Frail elderly male in moderate respiratory distress. SKIN: Warm and dry. HEAD: Atraumatic. Normocephalic. EYES: Pupils equal and round. No injection or drainage. ENT: Moist mucous membranes NECK: Trachea midline. CARDIOVASCULAR: Regular rate and rhythm. No murmur appreciated. RESPIRATORY: Poor air movement bilaterally, tachypnea, accessory muscle use, speaking 3-4 word sentences GASTROINTESTINAL: Abdomen soft, non-tender, nondistended. MUSCULOSKELETAL: No obvious deformities. NEUROLOGICAL: Awake and alert. No obvious cranial nerve deficits. Moving all extremities. PSYCHIATRIC: Appropriate mood and affect; insight and judgment normal. Data Data Last Documented VS Vital Signs Date Time Temp Pulse Resp B/P Pulse Ox O2 Delivery O2 Flow Rate FiO2 08/30/16 16:26 92 Simple Mask 10.00 08/30/16 16:09 83 08/30/16 15:59 98.2 32 170/79 08/30/16 15:55 35 Orders Complete Blood Count With Diff (08/30/16 15:42) Comprehensive Metabolic Panel (08/30/16 15:42) B-Type Natriuretic Peptide (08/30/16 15:42) Troponin I (08/30/16 15:42) Arterial Blood Gas (Abg) (08/30/16 15:42) Influenzae A/B Antigen (08/30/16 15:42) Blood Culture (08/30/16 15:42) Iv Access Insert/Monitor (08/30/16 15:42) Ecg Monitoring (08/30/16 15:42) Oximetry (08/30/16 15:42) Oxygen Administration (08/30/16 15:42) Chest, Single Ap (08/30/16 15:42) Sodium Chloride 0.9% Flush (Ns Flush) (08/30/16 15:45) Albuterol Neb (Albuterol Neb) (08/30/16 15:45) Resp Bipap / Cpap Non Invas Vt (08/30/16 15:42) Electrocardiogram (08/30/16 ) Cefepime Inj (Maxipime Inj) (08/30/16 16:45) Azithromycin Inj (Zithromax Inj) (08/30/16 16:45) Cath For Specimen (08/30/16 18:02) Urinalysis - C+S If Indicated (08/30/16 18:02) Furosemide Inj (Lasix Inj) (08/30/16 18:15) Admit Order (Ed Use Only) (08/30/16 ) Labs Laboratory Tests Test 08/30/16 08/30/16 16:00 16:10 Blood Gas Puncture Site RT RADIAL Blood Gas Patient Temperature 98.6 Blood Gas HCO3 21 mmol/L Blood Gas Base Excess -2.3 mmol/L Blood Gas Oxygen Saturation 90 % Arterial Blood pH 7.45 Arterial Blood Partial 31 mmHg Pressure CO2 Arterial Blood Partial 61 mmHG Pressure O2 Arterial Blood Oxygen Content 14.9 Vol % Arterial Blood 1.7 % Carboxyhemoglobin Arterial Blood Methemoglobin 0.6 % Blood Gas Hemoglobin 11.7 G/DL Oxygen Delivery Device BiPAP Blood Gas Ventilator Setting EPAP5/IPAP10 Blood Gas Inspired Oxygen 35 % White Blood Count 18.6 TH/MM3 Red Blood Count 4.39 MIL/MM3 Hemoglobin 11.5 GM/DL Hematocrit 36.1 % Mean Corpuscular Volume 82.1 FL Mean Corpuscular Hemoglobin 26.3 PG Mean Corpuscular Hemoglobin 32.0 % Concent Red Cell Distribution Width 16.1 % Platelet Count 473 TH/MM3 Mean Platelet Volume 7.2 FL Neutrophils (%) (Auto) 79.8 % Lymphocytes (%) (Auto) 11.3 % Monocytes (%) (Auto) 6.7 % Eosinophils (%) (Auto) 2.1 % Basophils (%) (Auto) 0.1 % Neutrophils # (Auto) 14.8 TH/MM3 Lymphocytes # (Auto) 2.1 TH/MM3 Monocytes # (Auto) 1.3 TH/MM3 Eosinophils # (Auto) 0.4 TH/MM3 Basophils # (Auto) 0.0 TH/MM3 CBC Comment DIFF FINAL Differential Comment Sodium Level 140 MEQ/L Potassium Level 4.2 MEQ/L Chloride Level 105 MEQ/L Carbon Dioxide Level 25.6 MEQ/L Anion Gap 9 MEQ/L Blood Urea Nitrogen 31 MG/DL Creatinine 1.42 MG/DL Estimat Glomerular Filtration 48 ML/MIN Rate Random Glucose 140 MG/DL Calcium Level 8.0 MG/DL Total Bilirubin 0.4 MG/DL Aspartate Amino Transf 17 U/L (AST/SGOT) Alanine Aminotransferase 21 U/L (ALT/SGPT) Alkaline Phosphatase 83 U/L Troponin I 0.94 NG/ML B-Type Natriuretic Peptide 3521 PG/ML Total Protein 5.9 GM/DL Albumin 2.5 GM/DL MDM Medical Decision Making Medical Screen Exam Complete: Yes Emergency Medical Condition: Yes Interpretation(s) Afebrile, no tachycardia, tachypnea, hypertension EKG: Normal sinus rhythm, Deep T-wave depressions in V2 and V3 Leukocytosis with 80% neutrophilia Renal insufficiency Troponin is 0.94 BNP is 3521 Differential Diagnosis COPD exacerbation, pneumonia, congestive heart failure, and STEMI, STEMI Narrative Course This is an 85-year-old male who presents to the emergency department with shortness of breath that has been present and worsening today. He had a recent nSTEMI and had a stent placed. Upon arrival patient appeared well until he was taken off of his oxygen to obtain a room air saturation. Staff was unaware that the patient was on 5 L of oxygen at baseline. Patient became acutely dyspneic, tachypneic, and looked cyanotic. He desaturated quickly to 60%. I placed the patient on a nonrebreather and initiated BiPAP. He significantly improved. He was given further serial bronchodilators and improved to the point where we were easily able to transition him off of BiPAP. Labs are notable for a leukocytosis and a BNP of 3000 which is new for him. EKG demonstrates and T-wave inversions in the anterior leads which are ischemic in appearance and new. His troponin is significantly decreased from discharge. Patient will be placed on IV heparin. He is not having any chest pain currently. He was covered empirically for possible healthcare acquired pneumonia given his recent hospitalization and his leukocytosis. Currently he is stable on 8 L of oxygen. He will be admitted to the CICU for further management. Critical Care Narrative Aggregate critical care time was 45 minutes. Time to perform other separately billable procedures was not included in the critical care time. My time did not include minutes spent treating any other patients simultaneously or on activities that did not directly contribute to the patient's treatment. The services I provided to this patient were to treat and/or prevent clinically significant deterioration that could result in: Disability, I provided critical care services requiring my management, as noted below: Chart data review, documentation time, medication orders and management, vital sign assessments/reviewing monitor data, ordering and reviewing lab tests, ordering and interpreting/reviewing x-rays and diagnostic studies, care of the patient and discussion of the patient with the admitting physicians. Physician Communication Physician Communication Discussed with Dr. Motley Diagnosis Primary Impression: COPD with acute exacerbation Additional Impression: Congestive heart failure (CHF) Qualified Code: I50.9 - Acute congestive heart failure, unspecified congestive heart failure type Admitting Information Admitting Physician Requests: Admit Carmina Rangel MD Aug 30, 2016 16:03
[2016-08-30] MEDS: RESP: ALBUTEROL 2.5 MG/3 ML NEB (SCH) INH (16:22)
[2016-08-30 16:33] LABS: AUTOMATED NEUTROPHIL # 14.8 TH/MM3 (1.8-7.7); BASOPHIL % 0.1 % (0.0-2.0); EOSINOPHIL # 0.4 TH/MM3 (0-0.4); EOSINOPHIL % 2.1 % (0.0-4.0); HEMATOCRIT 36.1 % (39.0-51.0); HEMO FLAGS DIFF FINAL; LYMPH % 11.3 % (9.0-44.0); LYMPHOCYTE # 2.1 TH/MM3 (1.0-4.8); MEAN CELL VOLUME 82.1 FL (80.0-100.0); MEAN CORPUSCULAR HEMOGLOBIN 26.3 PG (27.0-34.0); MONO % 6.7 % (0.0-8.0); NEUT % 79.8 % (16.0-70.0); PLATELET COUNT 473 TH/MM3 (150-450); RED BLOOD COUNT 4.39 MIL/MM3 (4.50-5.90); RED CELL DISTRIBUTION WIDTH 16.1 % (11.6-17.2); WHITE BLOOD COUNT 18.6 TH/MM3 (4.0-11.0)
[2016-08-30] MEDS ORDERED: OMEP20TA PO (16:33)
[2016-08-30] MEDS ORDERED: METO50TA PO (16:33)
[2016-08-30] MEDS ORDERED: OXYGENTANK NAS.CANULA (16:33)
[2016-08-30] MEDS ORDERED: AZITHROMYCIN INJ 500 MG in SODIUM CHLOR 0.9% 250 ML INJ 250 ML IV ONE (16:45)
[2016-08-30] MEDS ORDERED: CEFEPIME INJ 2,000 MG in SODIUM CHLORIDE 0.9% INJ 100 ML IV ONE (16:45)
[2016-08-30 16:46] LABS: ANION GAP 9 MEQ/L (5-15); AST (GOT) 17 U/L (15-37); BICARBONATE 25.6 MEQ/L (21.0-32.0); BLOOD UREA NITROGEN 31 MG/DL (7-18); CHLORIDE 105 MEQ/L (98-107); GLOMERULAR FILTRATION RATE 48 ML/MIN (>89); POTASSIUM 4.2 MEQ/L (3.5-5.1); SODIUM (NA) 140 MEQ/L (136-145)
[2016-08-30 16:51] LABS: ALKALINE PHOSPHATASE 83 U/L (45-117); ALT (GPT) 21 U/L (12-78); TOTAL BILIRUBIN ADULT 0.4 MG/DL (0.2-1.0)
--- NOTE | 2016-08-30 16:58 | RADRPT ---
EXAM DATE/TIME: 08/30/2016 16:16 [facility] COMPARISON: CHEST SINGLE AP, August 19, 2016, 21:46. INDICATIONS : SOB MEDICAL HISTORY : None. SURGICAL HISTORY : None. ENCOUNTER: Initial ACUITY: 1 day PAIN SCORE: 0/10 LOCATION: chest FINDINGS: Stable coarse reticular infiltrates in the lung bases, right worse than left. Cardiac contours are gr ossly unchanged. Apical probable pleural-parenchymal scarring. CONCLUSION: No significant change Charly Meraz MD on August 30, 2016 at 16:55 Board Certified Radiologist. This report was verified electronically.
[2016-08-30 17:18] LABS: BLOOD GAS BASE EXCESS -2.3 mmol/L (-2-2); BLOOD GAS CARBOXYHEMOGLOBIN 1.7 % (0-4); BLOOD GAS HCO3 21 mmol/L (22-26); BLOOD GAS METHEMOGLOBIN 0.6 % (0-2); BLOOD GAS O2 HGB SATURATION 90 % (90-100); BLOOD GAS OXYGEN CONTENT 14.9 Vol % (12.0-20.0); BLOOD GAS PCO2 31 mmHg (38-42); BLOOD GAS PO2 61 mmHG (61-120); BLOOD GAS TOTAL HGB 11.7 G/DL (12.0-16.0); CRITICAL VALUE NO; OXYGEN DEVICE BiPAP; TEMP CORR TO 98.6; VENT SETTINGS EPAP5/IPAP10
[2016-08-30 17:19] LABS: DRAW SITE RT RADIAL; FIO2 35 %; NUMBER OF ARTERIAL PUNCTURES 1; STAT YES; ULNAR PULSE PRESENT
[2016-08-30] MEDS ORDERED: SODIUM CHLORIDE 0.9% FLUSH 10 ML FLUSH IV FLUSH PRN (18:15)
[2016-08-30] MEDS ORDERED: FUROSEMIDE 40 MG/4 ML VIAL IV PUSH ONE (18:15)
[2016-08-30] MEDS ORDERED: NALOXONE HCL 0.4 MG/ML AMP IV PRN (18:15)
[2016-08-30] MEDS ORDERED: ASPIRIN 81 MG CHEW TAB CHEW ONE (19:15)
[2016-08-30] MEDS ORDERED: HEPARIN SODIUM - IV 10,000 UNITS/10 ML VIAL IV ONE (19:30)
[2016-08-30 19:43] LABS: HEMATOCRIT 34.5 % (39.0-51.0); MEAN CELL VOLUME 81.9 FL (80.0-100.0); MEAN CORPUSCULAR HEMOGLOBIN 27.2 PG (27.0-34.0); MEAN CORPUSCULAR HGB CONC 33.2 % (32.0-36.0); PLATELET COUNT 424 TH/MM3 (150-450); RED BLOOD COUNT 4.21 MIL/MM3 (4.50-5.90); RED CELL DISTRIBUTION WIDTH 15.9 % (11.6-17.2); REVIEW FLAG FINAL; WHITE BLOOD COUNT 14.3 TH/MM3 (4.0-11.0)
[2016-08-30 19:46] LABS: BLOOD, URINE NEG (NEG); COMMENT (UR) CULT NOT INDICATED; CULTURE IF INDICATED CULT NOT INDICATED; GLUCOSE,URINE NEG (NEG); GRANULAR CAST, URINE 6 /lpf; HYALINE CAST, URINE 2 /lpf (RARE); KETONE, URINE NEG (NEG); MUCUS URINE FEW /lpf (OCC); NITRITE,URINE NEG (NEG); PH, URINE 5.5 (5.0-8.5); SQUAMOUS EPITHELIAL CELL URINE <1 /hpf (0-5); URINE COLOR YELLOW (YELLW/STRAW)
[2016-08-30] MEDS ORDERED: RESP: ALBUTEROL 2.5 MG/IPRATROPIUM 0.5 MG NEB (SCH) NEB (20:00)
[2016-08-30] MEDS ORDERED: RESP: ALBUTEROL 2.5 MG/IPRATROPIUM 0.5 MG NEB (PRN) NEB (20:01)
[2016-08-30 20:03] LABS: APTT (PATIENT) 26.5 SEC (24.3-30.1); PROTHROMBIN TIME - PATIENT 10.7 SEC (9.8-11.6)
[2016-08-30] MEDS: cefTRIAXone INJ 1,000 MG in SODIUM CHLORIDE 0.9% INJ 100 ML IV SCH (20:54)
[2016-08-30] MEDS ORDERED: HEPARIN SODIUM - SQ 10,000 UNITS/ML VIAL SQ SCH (21:00)
[2016-08-30] MEDS: SODIUM CHLORIDE 0.9% FLUSH 10 ML FLUSH IV FLUSH SCH (21:00)
[2016-08-30] MEDS: METOPROLOL TARTRATE 50 MG TAB PO SCH (21:00)
[2016-08-30] MEDS: HEPARIN-D5W INJ 250 ML IV SCH (21:48)
[2016-08-30] MEDS: RESP: ALBUTEROL 2.5 MG/IPRATROPIUM 0.5 MG NEB (SCH) NEB (22:00)
[2016-08-30] MEDS: ATORVASTATIN 40 MG TAB PO SCH (22:26)
[2016-08-31] VITALS (9 sets, daily range): BP systolic 117–143; BP diastolic 59–82; PULSE 62–74; RESP 18–20; TEMP 96.2–98.5; O2SAT 91–95
[2016-08-31 02:59] LABS: AUTOMATED NEUTROPHIL # 5.4 TH/MM3 (1.8-7.7); BASOPHIL % 0.1 % (0.0-2.0); EOSINOPHIL % 0.1 % (0.0-4.0); HEMATOCRIT 34.5 % (39.0-51.0); HEMO FLAGS DIFF FINAL; LYMPH % 6.3 % (9.0-44.0); LYMPHOCYTE # 0.4 TH/MM3 (1.0-4.8); MEAN CELL VOLUME 82.3 FL (80.0-100.0); MEAN CORPUSCULAR HEMOGLOBIN 26.4 PG (27.0-34.0); MEAN CORPUSCULAR HGB CONC 32.1 % (32.0-36.0); MONO % 2.6 % (0.0-8.0); NEUT % 90.9 % (16.0-70.0); PLATELET COUNT 379 TH/MM3 (150-450); RED CELL DISTRIBUTION WIDTH 15.8 % (11.6-17.2)
[2016-08-31] MEDS: RESP: ALBUTEROL 2.5 MG/IPRATROPIUM 0.5 MG NEB (SCH) NEB ×4 (03:15→20:51)
[2016-08-31 03:20] LABS: BICARBONATE 27.2 MEQ/L (21.0-32.0); POTASSIUM 4.3 MEQ/L (3.5-5.1)
[2016-08-31 03:21] LABS: APTT (PATIENT) 47.7 SEC (24.3-30.1)
[2016-08-31] MEDS: LEVOTHYROXINE SODIUM 75 MCG TAB PO SCH (06:00)
[2016-08-31] MEDS: methylPREDNISolone SOD SUCC 40 MG/1 ML VIAL IV PUSH SCH ×5 (06:00→23:11)
[2016-08-31] MEDS: PANTOPRAZOLE SOD 20 MG DELAYED RELEASE TAB PO SCH (06:00)
--- NOTE | 2016-08-31 07:41 | RADRPT ---
EXAM DATE/TIME: 08/31/2016 07:35 [facility] COMPARISON: CHEST SINGLE AP, August 16, 2016, 2:44. CHEST SINGLE AP, August 19, 2016, 21:46. CHEST SINGLE AP, Aug, 16:16. INDICATIONS : Shortness of breath MEDICAL HISTORY : None. SURGICAL HISTORY : None. ENCOUNTER: Subsequent ACUITY: 1 day PAIN SCORE: 0/10 LOCATION: Bilateral chest FINDINGS: PA lateral views of the chest demonstrate stable chronic hyperinflation with coarse reticular airspac e consolidation involving the bilateral lower lungs, unchanged from the prior exams of August 30, 2016 and August 19, 2016. These are new as compared to the exam of August 16, 2016. Heart size is moderatel y enlarged. No evidence of pneumothorax. CONCLUSION: Stable appearance of acute on chronic lung disease. Mary Lundberg MD on August 31, 2016 at 7:37 Board Certified Radiologist. This report was verified electronically.
[2016-08-31] MEDS: TIOTROPIUM BROMIDE 18 MCG INH INH SCH (09:00)
[2016-08-31 09:44] LABS: APTT (PATIENT) 34.1 SEC (24.3-30.1)
[2016-08-31] MEDS: METOPROLOL TARTRATE 50 MG TAB PO SCH ×2 (09:49→20:21)
[2016-08-31] MEDS: ASPIRIN EC 81 MG TABEC PO SCH (09:50)
[2016-08-31] MEDS: CLOPIDOGREL 75 MG TAB PO SCH (09:51)
[2016-08-31] MEDS: SODIUM CHLORIDE 0.9% FLUSH 10 ML FLUSH IV FLUSH SCH ×2 (09:52→20:22)
--- NOTE | 2016-08-31 12:16 | MB ---
cc: DARRICK MARTIN JOHN DATE OF CONSULTATION: 08/30/2016 REASON FOR CONSULTATION COPD and respiratory distress. HISTORY OF PRESENT ILLNESS This is an 85-year-old white male who has a prior history of COPD and emphysema, has been on oxygen at home at 4-5 liters via nasal cannula. The patient recently had a STEMI and had been taken to the cardiac catheterization and had stenting done recently. He was then brought to the emergency room today with severe and persistent cough with severe shortness of breath and apparently was hypoxic and was placed on a BiPAP mask. The patient was also given bronchodilators, IV Solu-Medrol and epinephrine and subsequently his condition did improve and he was now switched to a simple mask at 50%. The patient states he feels better. He has still a cough with mild wheezing and denies any orthopnea. He has some leg swelling but no chest pains or fever. PAST HISTORY 1. History coronary artery disease with coronary artery stenting. 2. History of COPD with chronic bronchitis. 3. History of non-small cell lung cancer. 4. Prior history of prostate cancer. 5. History of hypothyroidism. 6. Hypertension. PAST SURGICAL HISTORY 1. Carotid endarterectomy on the right. 2. History of hernia repair. 3. Cardiac cath. HABITS The patient was a former smoker of one pack per day for over 30 years. No significant alcohol. ALLERGIES PRILOSEC. MEDICATION LIST 1. Lipitor. 2. Plavix. 3. Aspirin. 4. He is on oxygen. 5. Nebulized albuterol. 6. Spiriva HandiHaler. 7. Metoprolol 50 mg b.i.d. 8. Levothyroxine 75 mcg a day. 9. Omeprazole 20 mg daily. FAMILY HISTORY Noncontributory. REVIEW OF SYSTEMS The patient denies headaches. He does have some sinus drainage. He has leg swelling. He has no urinary symptoms and he does have a cough mostly dry and no hemoptysis. He has no reflux, nausea or vomiting. No GI bleed. No urinary symptoms. He does have some joint pains and has had weight loss. PHYSICAL EXAMINATION GENERAL: This elderly, thinly-built, white male is anxious and dyspneic. VITAL SIGNS: Blood pressure 160/70, pulse is 85, respirations 22, temperature 98. HEENT: Head normocephalic. Pupils are reactive and equal. Tongue moist. Throat is injected. Ears - no inflammation. NECK: Supple. No bruits. No lymphadenopathy or thyromegaly. CHEST: Equal movements with an increased AP diameter with diffuse wheezes throughout both lung anderson. Prolonged expirations with occasional crackles at the right base. HEART: The heart sounds regular, S1 and S2, with no definite murmur. ABDOMEN: Abdomen is soft, protuberant without masses, organomegaly or tenderness. EXTREMITIES: Edema 1+ with diminished pulses. Reflexes 1+ with no gross motor deficits. Cranial nerves grossly intact. SKIN: No lesions. IMPRESSION 1. COPD with acute exacerbation. 2. Recent STEMI status post coronary artery stenting. 3. Probable mild CHF. 4. Emphysema. PLAN The patient has been started on IV Rocephin 1 gram and Zithromax 500 mg IV daily, also placed on Solu-Medrol 60 mg IV q.6 hours, nebulized DuoNeb solution added q.i.d. for shortness of breath and Symbicort 160/4.5 two puffs twice a day. Chest x-ray to be repeated in the a.m. and sputum will be sent for Gram stain and culture. Thank you Dr. Razo for this consultation. MD GALDINO Herrera/LEANDRA /7:52 PM /11:52 AM
[2016-08-31] MEDS: FUROSEMIDE 40 MG TAB PO SCH (14:24)
--- NOTE | 2016-08-31 15:05 | HHI.PR ---
Subjective Remarks Feels better. On O2 at 3L. No chest pain. Cough persists. Objective Vital Signs Date Time Temp Pulse Resp B/P Pulse Ox O2 Delivery O2 Flow Rate FiO2 08/31/16 13:28 92 Nasal Cannula 4 08/31/16 12:00 62 18 133/66 95 Nasal Cannula 3 08/31/16 09:53 98.5 74 18 122/82 95 Nasal Cannula 3 08/31/16 09:50 92 Nasal Cannula 3.00 08/31/16 07:00 66 18 138/66 95 Nasal Cannula 3 08/31/16 04:00 98.4 66 18 143/66 94 Nasal Cannula 3.5 08/31/16 00:00 97.6 66 20 117/59 91 Nasal Cannula 4.5 08/30/16 23:59 94 Nasal Cannula 4 08/30/16 23:57 97 Venturi Mask 50 08/30/16 23:57 93 Nasal Cannula 4.00 08/30/16 22:14 92 Venturi Mask 50 08/30/16 20:00 72 24 102/57 94 6 08/30/16 19:30 92 Venturi Mask 6 50 08/30/16 19:00 72 22 99/58 92 5 08/30/16 18:50 74 18 99/58 08/30/16 18:50 94 Simple Mask 8 08/30/16 16:26 92 Simple Mask 10.00 08/30/16 16:09 83 08/30/16 15:59 98.2 82 32 170/79 92 08/30/16 15:55 97 35 I/O 08/30/16 08/30/16 08/30/16 08/31/16 08/31/16 08/31/16 07:00 15:00 23:00 07:00 15:00 23:00 Intake Total 1134 ml Output Total 975 ml 200 ml Balance 159 ml -200 ml Intake Oral 720 ml IV Total 414 ml Output Urine Total 975 ml 200 ml # Voids 1 Result Diagram: 08/31/1623608/31/16236 Objective Remarks GENERAL: This elderly, thinly-built, white male is alert . HEENT: Head normocephalic. Pupils are reactive and equal. Tongue moist. Throat is injected. Ears - no inflammation. NECK: Supple. No bruits. No lymphadenopathy or thyromegaly. CHEST: Equal movements with an increased AP diameter with few wheezes over both lung anderson. Prolonged expirations with occasional crackles at the right base. HEART: The heart sounds regular, S1 and S2, with no definite murmur. ABDOMEN: Abdomen is soft, protuberant without masses, organomegaly or tenderness. EXTREMITIES: Edema 1+ with diminished pulses. Reflexes 1+ with no gross motor deficits. SKIN: No lesions. Assessment and Plan Assessment and Plan IMPRESSION 1. COPD with acute exacerbation. 2. Recent STEMI status post coronary artery stenting. 3. Probable mild CHF. 4. Emphysema. Plan : 1. Wean o2 to 2 L. 2. Taper solumedrol to 40 mg IV q6h. 3. Cont Rocephin and Zithro. 4. Cont Anticoagulants. 5. BMP in am. 6. [address] gutierrez. Laurence Siegel MD Aug 31, 2016 15:05
--- NOTE | 2016-08-31 16:44 | EKG ---
Date Performed: 08/30/2016 Time Performed: 16:09:03 PTAGE: 85 years EKG: Sinus rhythm MARKED LEFT AXIS DEVIATION INCOMPLETE RIGHT BUNDLE BRANCH BLOCK MODERATE T-WAVE ABNORMALITY, CONSIDE R ANTERIOR ISCHEMIA The anterior T wave inversions are new from the prior tracing ABNORMAL ECG INTERP RETATION BASED ON A DEFAULT AGE OF 40 YEARS PREVIOUS TRACING : 08/21/2016 05.46 DOCTOR: Manuelito Beltre Interpretating Date/Time 08/31/2016 16:43:51
[2016-08-31] MEDS ORDERED: AZITHROMYCIN INJ 500 MG in SODIUM CHLOR 0.9% 250 ML INJ 250 ML IV SCH (18:00)
[2016-08-31 18:28] LABS: APTT (PATIENT) 40.5 SEC (24.3-30.1)
--- NOTE | 2016-08-31 18:30 | MB ---
cc: STEPHANIE CHO M.D. DATE OF CONSULTATION 08/31/2016 REASON FOR CONSULTATION For evaluation of abnormal EKG and coronary artery disease. CHIEF COMPLAINT Dyspnea. HISTORY OF PRESENT ILLNESS Kiet Ro is an 85-year-old man. He is known to have extremely severe COPD / emphysema, is on chronic 5 liters of O2 by nasal cannula. He had a non STEMI August 15, 2016. Troponin was very high. He underwent two-vessel stenting August 20, 2016. A stented to the proximal LAD and proximal and mid right coronary artery. Proximal LAD was 75%, treated with a 3.5 x 15 mm drug-eluting stent. The right coronary artery had 95% mid disease, treated with a 3.5 x 26 mm stent in the mid segment and 3.5 x 22 mm stent in the proximal segment. 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 He has had some mild hemoptysis but nothing severe. He actually showed me his sputum and looks more brownish then in does suggestive of blood. His shortness of breath had gotten much worse yesterday so he finally came in to the hospital. He has improved some since yesterday. His activity is extremely limited due to his extremely severe COPD. PAST MEDICAL HISTORY Includes: 1. Severe COPD. 2. Coronary artery disease. 3. Non-small cell lung cancer. 4. History of prostate cancer. 5. Hypothyroidism. 6. Hypertension. PAST SURGICAL HISTORY Includes: 1. Right carotid endarterectomy. 2. Hernia repair. ALLERGIES PRILOSEC. MEDICATIONS He is on: 1. Aspirin. 2. Clopidogrel. 3. He is also on Lipitor. 4. Metoprolol 50 mg p.o. b.i.d. 5. And other noncardiac medications. FAMILY HISTORY Noncontributory. REVIEW OF SYSTEMS Otherwise noncontributory. PHYSICAL EXAMINATION GENERAL: Physical exam reveals a thin, chronically ill appearing white male. He is coughing on a regular basis. HEENT: Exam unremarkable. NECK: Shows mild increased central venous pressure. CHEST: Shows increased AP diameter. Mild diffuse wheezing and scattered rhonchi. CARDIOVASCULAR: Exam S1-S2, regular rate and rhythm. I do not appreciate murmurs. ABDOMEN: Soft. EXTREMITIES: Reveal 1+ edema. The edema is apparently new and he does not practice any salt restriction. LABORATORY DATA EKG showed sinus rhythm. There is anterior T-wave abnormalities consistent with a previous non STEMI. His cardiac enzymes show troponin is down from where it was last admission, currently 0.66. Creatinine is 1.54, BUN 31. IMAGING The chest x-ray is abnormal, described as coarse reticularis based consolidation involving the bilateral lower lungs, new from August 16 but similar to the last two prior films. IMPRESSION This is a 78-year-old male with extremely severe COPD who had palliative stenting of his LAD and right coronary artery because he was not deemed to be a good surgical candidate. 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 He has had no anginal pain like he had with his prior [place]. EKG changes may just be evolutionary in nature. Of some concern is his new 1+ edema at the ankles and some increasing air space consolidation on his chest x-ray so there could be a mild component of chfx. RECOMMENDATIONS I am going to go ahead and add 40 mg of Lasix daily. Check a BMP in the morning and a 2-D echo Doppler to assess LV function. Continue his aspirin and Plavix. I will check a Ver[employer]Now test to make sure his Plavix is effective. Thank you for asking me to see him. MD SLAVA Gauthier/RAGHAV /1:26 PM /6:12 PM
[2016-08-31] MEDS: ATORVASTATIN 40 MG TAB PO SCH (20:22)
[2016-08-31] MEDS: cefTRIAXone INJ 1,000 MG in SODIUM CHLORIDE 0.9% INJ 100 ML IV SCH (20:22)
[2016-09-01] VITALS (8 sets, daily range): BP systolic 128–147; BP diastolic 65–73; PULSE 60–77; RESP 17–20; TEMP 95.2–97; O2SAT 91–94
[2016-09-01 02:39] LABS: P2Y12 REACTION UNITS (PRU) 194 PRU (194-418)
[2016-09-01 02:40] LABS: APTT (PATIENT) 39.3 SEC (24.3-30.1)
[2016-09-01] MEDS: RESP: ALBUTEROL 2.5 MG/IPRATROPIUM 0.5 MG NEB (SCH) NEB ×4 (03:43→22:47)
[2016-09-01] MEDS: PANTOPRAZOLE SOD 20 MG DELAYED RELEASE TAB PO SCH (06:03)
[2016-09-01] MEDS: methylPREDNISolone SOD SUCC 40 MG/1 ML VIAL IV PUSH SCH ×2 (06:03→13:31)
[2016-09-01] MEDS: LEVOTHYROXINE SODIUM 75 MCG TAB PO SCH (06:03)
[2016-09-01] MEDS: HEPARIN-D5W INJ 250 ML IV SCH (06:04)
[2016-09-01 08:20] LABS: APTT (PATIENT) 40.8 SEC (24.3-30.1)
[2016-09-01 08:22] LABS: BICARBONATE 23.9 MEQ/L (21.0-32.0)
[2016-09-01] MEDS: SODIUM CHLORIDE 0.9% FLUSH 10 ML FLUSH IV FLUSH SCH ×2 (09:00→21:00)
--- NOTE | 2016-09-01 09:24 | PD.CARD.PN ---
Subjective Subjective Remarks SOB is better but doesn't feel well enough to go home. Keeps asking why he's having these problems - does not seem to have good insight into his very severe COPD/ lung cancer and heart disease and is listed as full code Objective Medications Current Medications Medications (Trade) Dose Ordered Sig/Ken Route Start Time Stop Time Status Last Admin (NS Flush) 2 ml UNSCH PRN IVF 08/30/16 15:45 (NS Flush) 2 ml UNSCH PRN IV FLUSH 08/30/16 18:15 (NS Flush) 2 ml BID IV FLUSH 08/30/16 21:00 08/31/16 09:52 (Narcan Inj) 0.4 mg UNSCH PRN IV 08/30/16 18:15 (Ecotrin Ec) 81 mg DAILY PO 08/31/16 09:00 08/31/16 09:50 (Lipitor) 40 mg HS PO 08/30/16 21:00 08/31/16 20:22 (Plavix) 75 mg DAILY PO 08/31/16 09:00 08/31/16 09:51 (Synthroid) 75 mcg DAILY@06 PO 08/31/16 06:00 09/01/16 06:03 (Lopressor) 50 mg BID PO 08/30/16 21:00 08/31/16 20:21 (Spiriva Inh) 18 mcg DAILY INH 08/31/16 09:00 Pantoprazole Sodium 20 mg 20 mg DAILY@06 PO 08/31/16 06:00 09/01/16 06:03 Ceftriaxone Sodium 1000 mg/ Sodium Chloride 100 ml @ 200 mls/hr Q24H IV 08/30/16 20:00 08/31/16 20:22 Azithromycin 500 mg/Sodium Chloride 250 ml @ 250 mls/hr Q24H IV 08/31/16 18:00 08/31/16 17:54 (Heparin-D5W Inj) 250 ml @ 0 mls/hr TITRATE IV 08/30/16 19:30 09/01/16 06:04 (Lasix) 40 mg DAILY PO 08/31/16 13:30 08/31/16 14:24 (SoluMEDROL INJ) 40 mg Q6HR IV PUSH 08/31/16 18:00 09/01/16 06:03 Vital Signs / I&O Vital Signs Date Time Temp Pulse Resp B/P Pulse Ox O2 Delivery O2 Flow Rate FiO2 09/01/16 04:15 97.0 60 18 139/73 94 09/01/16 00:04 96.8 77 18 147/70 94 08/31/16 20:53 93 Nasal Cannula 4.00 08/31/16 19:30 97.6 74 18 118/66 92 08/31/16 18:48 Nasal Cannula 4.00 08/31/16 16:00 96.2 65 18 134/66 94 08/31/16 13:28 92 Nasal Cannula 4 08/31/16 12:00 62 18 133/66 95 Nasal Cannula 3 08/31/16 09:53 98.5 74 18 122/82 95 Nasal Cannula 3 08/31/16 09:50 92 Nasal Cannula 3.00 I/O 08/31/16 08/31/16 08/31/16 09/01/16 09/01/16 09/01/16 07:00 15:00 23:00 07:00 15:00 23:00 Intake Total 1134 ml 645 ml 656 ml Output Total 975 ml 200 ml 300 ml 480 ml Balance 159 ml -200 ml 345 ml 176 ml Intake Oral 720 ml 240 ml 600 ml IV Total 414 ml 301 ml Other 104 ml 56 ml Output Urine Total 975 ml 200 ml 300 ml 480 ml # Voids 1 # Bowel Movements 0 0 Physical Exam GENERAL: very thin, No acute distress, not tachypneic HEENT: Jugular venous pressure is normal. CHEST: Lungs diminished throughout. Unlabored respiratory effort. CARDIAC: Regular rate and rhythm ABDOMEN: Soft, nontender,Bowel sounds present. EXTREMITIES: 1+ edema ankles only Laboratory Laboratory Tests Test 08/31/16 09/01/16 09/01/16 17:37 00:36 07:50 Activated Partial 40.5 SEC 39.3 SEC 40.8 SEC Thromboplast Time Platelet Function P2Y12 React 194 PRU Units Sodium Level 140 MEQ/L Potassium Level 4.0 MEQ/L Chloride Level 107 MEQ/L Carbon Dioxide Level 23.9 MEQ/L Anion Gap 9 MEQ/L Blood Urea Nitrogen 36 MG/DL Creatinine 1.31 MG/DL Estimat Glomerular Filtration 52 ML/MIN Rate Random Glucose 107 MG/DL Calcium Level 7.9 MG/DL Imaging Last 48 hours Impressions Chest X-Ray 08/31/16 0600 Signed Impressions: Service Date/Time: Wednesday, August 31, 2016 07:35 - CONCLUSION: Stable appearance of acute on chronic lung disease. Mary Lundberg MD Chest X-Ray 08/30/16 1542 Signed Impressions: Service Date/Time: Tuesday, August 30, 2016 16:16 - CONCLUSION: No significant change Charly Meraz MD Assessment and Plan Problem List: (1) NSTEMI (non-ST elevated myocardial infarction) Assessment and Plan: troponin declining. Doubt acute event this admit (2) CAD (coronary artery disease) Assessment and Plan: no angina. Known 100% LCX (3) History of lung cancer Assessment and Plan: Does not seem to have insight into his prognosis. (4) COPD with acute exacerbation Assessment and Plan: per pulmonary (5) Stented coronary artery Assessment and Plan: cont ASA, clopidogrel. Verify now satisfactory - certainly not overly "thin" (6) Abnormal EKG Assessment and Plan: suggestive of NSTEMI in LAD distribution presumably left over from last admit (7) Edema Assessment and Plan: Not following salt resrtiction at home. No overt CHF but I started qd furosemide with oral K+ Assessment and Plan Will notify Dr. Farmer for F/U tomorrow. Note echo pending. IF EF low should add ACEI as BP allows. Manuelito Beltre MD Sep 01, 2016 09:24
[2016-09-01] MEDS: CLOPIDOGREL 75 MG TAB PO SCH (09:55)
[2016-09-01] MEDS: TIOTROPIUM BROMIDE 18 MCG INH INH SCH (09:55)
[2016-09-01] MEDS: FUROSEMIDE 40 MG TAB PO SCH (09:56)
[2016-09-01] MEDS: METOPROLOL TARTRATE 50 MG TAB PO SCH ×2 (09:56→21:28)
[2016-09-01] MEDS: ASPIRIN EC 81 MG TABEC PO SCH (09:56)
--- NOTE | 2016-09-01 14:56 | HHI.PR ---
Subjective Remarks Feels better. On O2 at 4L. No chest pain. Cough is less. No new cardiac issues. Objective Vital Signs Date Time Temp Pulse Resp B/P Pulse Ox O2 Delivery O2 Flow Rate FiO2 09/01/16 12:00 95.2 65 18 136/65 94 09/01/16 09:14 91 Nasal Cannula 4.00 09/01/16 08:00 95.6 62 17 140/68 93 09/01/16 04:15 97.0 60 18 139/73 94 09/01/16 00:04 96.8 77 18 147/70 94 08/31/16 20:53 93 Nasal Cannula 4.00 08/31/16 19:30 97.6 74 18 118/66 92 08/31/16 18:48 Nasal Cannula 4.00 08/31/16 16:00 96.2 65 18 134/66 94 I/O 08/31/16 08/31/16 08/31/16 09/01/16 09/01/16 09/01/16 07:00 15:00 23:00 07:00 15:00 23:00 Intake Total 1134 ml 645 ml 656 ml Output Total 975 ml 200 ml 300 ml 480 ml Balance 159 ml -200 ml 345 ml 176 ml Intake Oral 720 ml 240 ml 600 ml IV Total 414 ml 301 ml Other 104 ml 56 ml Output Urine Total 975 ml 200 ml 300 ml 480 ml # Voids 1 # Bowel Movements 0 0 Result Diagram: 08/31/16 0237 09/01/16 0750 Objective Remarks GENERAL: This elderly, thinly-built, white male is alert . Pale. HEENT: Head normocephalic. Pupils are reactive and equal. Tongue moist. Throat is clear. Ears - no inflammation. NECK: Supple. No bruits. No lymphadenopathy or thyromegaly. CHEST: Equal movements with an increased AP diameter with few wheezes over both lung anderson. Prolonged expirations with occasional wheeze. HEART: The heart sounds regular, S1 and S2, with no definite murmur. ABDOMEN: Abdomen is soft, protuberant without masses, organomegaly or tenderness. EXTREMITIES: Edema 1+ with diminished pulses. Reflexes 1+ with no gross motor deficits. SKIN: No lesions. Assessment and Plan Assessment and Plan IMPRESSION 1. COPD with acute exacerbation. 2. Recent STEMI status post coronary artery stenting. 3. Probable mild CHF. 4. Emphysema. Plan : 1. Wean o2 to 3 L. 2. D/C solumedrol 3. Cont Rocephin and Zithro. 4. Cont Anticoagulants. 5. Add prednisone 20 mg bid 6. [address] gutierrez. Laurence Siegel MD Sep 01, 2016 14:56
--- NOTE | 2016-09-01 15:44 | HHI.PR ---
Subjective Remarks resting in bed 2d echo being done anxiety exertional dyspnea afebrile family in Objective Objective Results - Vital Signs Date Time Temp Pulse Resp B/P Pulse Ox O2 Delivery O2 Flow Rate FiO2 09/01/16 12:00 95.2 65 18 136/65 94 09/01/16 09:14 91 Nasal Cannula 4.00 09/01/16 08:00 95.6 62 17 140/68 93 09/01/16 04:15 97.0 60 18 139/73 94 09/01/16 00:04 96.8 77 18 147/70 94 08/31/16 20:53 93 Nasal Cannula 4.00 08/31/16 19:30 97.6 74 18 118/66 92 08/31/16 18:48 Nasal Cannula 4.00 08/31/16 16:00 96.2 65 18 134/66 94 I/O 08/31/16 08/31/16 08/31/16 09/01/16 09/01/16 09/01/16 07:00 15:00 23:00 07:00 15:00 23:00 Intake Total 1134 ml 645 ml 656 ml Output Total 975 ml 200 ml 300 ml 480 ml Balance 159 ml -200 ml 345 ml 176 ml Intake Oral 720 ml 240 ml 600 ml IV Total 414 ml 301 ml Other 104 ml 56 ml Output Urine Total 975 ml 200 ml 300 ml 480 ml # Voids 1 # Bowel Movements 0 0 Result Diagram: 08/31/16 0237 09/01/16 0750 ROS General: Fatigue, Weakness, Other (10 point ROS done, some dyspnea, anxiety, cough , other systems negative or unremarkable) Pulmonary: Cough, SOB Neuro/MS: Other (anxiety) Physical Exam Physical Exam PHYSICAL EXAMINATION GENERAL: This is a well-developed, thin, borderline frail male O2 on, resting in bed. He is alert and awake, anxious HEAD: Normocephalic without any lesion or mass noted. Facial features appear symmetric. OROPHARYNGEAL: Oropharynx without erythema or edema., dry NECK: Supple. No nuchal rigidity or lymphadenopathy. Trachea midline without deviation. CARDIAC: Regular rhythm, regular rate, S1 and S2 are heard. Murmur none LUNGS: diminished to auscultation bilaterally. mild wheeze, mild rhonchi Positive use of accessory muscles on inspiration or expiration. ABDOMEN: Soft, nontender, no organomegaly or masses. Bowel sounds are heard in all four quadrants. No rebound. No guarding. EXTREMITIES: no edema. Pulses equal bilateral. no cyanosis. NEUROLOGICAL: Patient mood and affect anxious SKIN:Warm and moist Objective Remarks Im still needing 4 L O2 A/P Assessment and Plan COPD exacerbation, O2 at 4L. Patient gets upset if weaned down, Appreciate pulm. consult and input. Ordered to decrease O2 to 3L. Supportive care to patient. Dyspnea, more exertional today. Patient able to lie back flat with O2 on. anemia, monitored , probable to chronic disease Hx CHF, new 2 d echo done, Portal HTN seen, medical management , stable for now, CVD,/ CAD medical management , monitor for any chest pain, recent cardiac stent placement X 3, vitals and labs monitored , afebrile, BP , pulse normal range. Telemetry shows SR, 60s Leukocytosis on adm, but resolved now, monitor, DVT prophylaxsis Acute kidney injury, stable , PO fluids encouraged. Patient requested our hospital card to remember who has been taking care of him. Given to him Kassy Granger Sep 01, 2016 15:43
--- NOTE | 2016-09-01 19:02 | EC ---
Study Study Date:09/01/2016 STUDY CONCLUSIONS SUMMARY - Left ventricle: The cavity size was normal. Wall thickness was normal. Systolic function was normal. The estimated ejection fraction was 60%. Wall motion was normal; there were no regional wall motion abnormalities. - Aortic valve: Trileaflet; moderately thickened, moderately calcified leaflets. Mild to moderate regurgitation. - Mitral valve: Calcified annulus. Mildly thickened, mildly calcified leaflets, . Mild regurgitation. - Tricuspid valve: Moderate regurgitation. - Pulmonary arteries: Systolic pressure was moderately to severely increased. PA peak pressure: 72mm Hg (S). If LV function is below 40, please consider prescribing an ACEI or ARB or document rationale for non-use. PROCEDURE DATA STUDY STATUS: Elective. Procedure: Transthoracic echocardiography. Image quality was good. Scanning was performed from the parasternal, apical, and subcostal acoustic windows. Study completion: The patient tolerated the procedure well. Transthoracic echocardiography. M-mode, complete 2D, complete spectral Doppler, and color Doppler. Height: Height: 66in. Weight: Weight: 109.8lb. Body mass index: BMI: 17.8kg/m^2. Body surface area: BSA: 1.55m^2. Patient status: Inpatient. CARDIAC ANATOMY LEFT VENTRICLE: The cavity size was normal. Wall thickness was normal. Systolic function was normal. The estimated ejection fraction was 60%. Wall motion was normal; there were no regional wall motion abnormalities. AORTIC VALVE: Trileaflet; moderately thickened, moderately calcified leaflets. Doppler: Transvalvular velocity was within the normal range. There was no stenosis. Mild to moderate regurgitation. Valve area: 1.58cm^2(VTI). Indexed valve area: 1.02cm^2/m^2 (VTI). Valve area: 1.75cm^2 (Vmax). Indexed valve area: 1.13cm^2/m^2 (Vmax). Mean gradient: 5mm Hg (S). Peak gradient: 11mm Hg (S). AORTA: Aortic root: The aortic root was normal in size. MITRAL VALVE: Calcified annulus. Mildly thickened, mildly calcified leaflets, . Doppler: Transvalvular velocity was within the normal range. There was no evidence for stenosis. Mild regurgitation. Peak gradient: 2mm Hg (D). LEFT ATRIUM: The atrium was normal in size. RIGHT VENTRICLE: The cavity size was normal. Wall thickness was normal. PULMONIC VALVE: Doppler: Transvalvular velocity was within the normal range. There was no evidence for stenosis. No regurgitation. TRICUSPID VALVE: Structurally normal valve. Doppler: Transvalvular velocity was within the normal range. Moderate regurgitation. PULMONARY ARTERY: The main pulmonary artery was normal-sized. Systolic pressure was moderately to severely increased. RIGHT ATRIUM: The atrium was normal in size. PERICARDIUM: There was no pericardial effusion. SYSTEMIC VEINS: Inferior vena cava: The vessel was normal in size. Patient weight: 109.8lb _Ejection fraction:_ 65-75% _Fractional shortening:_ 32% up to 5Kg 5-11.5Kg 11.6-22.9Kg 23-45Kg 45-57Kg Aortic Root 7-13 <17 13-22 17-27 17-27 LA diam 6-13 <23 24-38 33-47 37-40 RVID 10-17 7-15 7-15 7-18 8-17 LVIDd 12-22 <32 24-38 33-47 37-40 LVPW 2-4 3-6 5-7 6-8 7-8 IVS 2-4 3-6 5-7 6-8 7-8 BASIC MEASUREMENTS ADULT NORMAL Left ventricle LV internal dimension, ED, chordal 45.8 mm 43-52 level, PLAX LV internal dimension, ES, chordal 32.1 mm 23-38 level, PLAX Fractional shortening, chordal level, 30 % >29 PLAX LV posterior wall thickness, ED 8.39 mm IVS/LVPW ratio, ED 0.98 <1.3 Ventricular septum Septal thickness, ED 8.22 mm Aortic valve Leaflet separation *14 mm 15-26 Aorta Root diameter, ED 28 mm Left atrium Anterior-posterior dimension 33 mm Anterior-posterior dimension index 2.13 cm/m^2 <2.2 BASIC MEASUREMENTS ADULT NORMAL Aortic valve Leaflet separation *14 mm 15-26 DOPPLER MEASUREMENTS ADULT NORMAL Main pulmonary artery Pressure, S *72 mm Hg =30 Aortic valve Peak velocity, S 165 cm/s Mean velocity, S 108 cm/s VTI, S 37.5 cm Mean gradient, S 5 mm Hg Peak gradient, S 11 mm Hg Valve area, VTI 1.58 cm^2 Valve area index, VTI 1.02 cm^2/m^2 Valve area, Vmax 1.75 cm^2 Valve area index, Vmax 1.13 cm^2/m^2 Regurgitant velocity, ED 400 cm/s Regurgitant deceleration 3170 cm/s^2 Regurgitant pressure half-time 369 ms Regurgitant gradient, ED 64 mm Hg Mitral valve Peak E-wave velocity 71.1 cm/s Peak A-wave velocity 103 cm/s Deceleration time *123 ms 150-230 Peak gradient, D 2 mm Hg Peak E/A ratio 0.7 Tricuspid valve Regurgitant peak velocity 398 cm/s Peak RV-RA gradient, S 63 mm Hg Maximal regurgitant velocity 398 cm/s Systemic veins Estimated CVP 10 mm Hg Right ventricle RV pressure, S *73 mm Hg <30 Pulmonic valve Peak velocity, S 44.4 cm/s LEGEND: Mean values are shown as u=mean value. Asterisk (*) bliss values outside specified normal range. Prepared and signed by Elizabeth Zambrano [id number]
[2016-09-01] MEDS: cefTRIAXone INJ 1,000 MG in SODIUM CHLORIDE 0.9% INJ 100 ML IV SCH (21:27)
[2016-09-01] MEDS: predniSONE 20 MG TAB PO SCH (21:28)
[2016-09-01] MEDS: ATORVASTATIN 40 MG TAB PO SCH (21:28)
[2016-09-02] VITALS (8 sets, daily range): BP systolic 131–161; BP diastolic 60–78; PULSE 60–77; RESP 16–20; TEMP 95.9–97.2; O2SAT 91–96
[2016-09-02] MEDS: RESP: ALBUTEROL 2.5 MG/IPRATROPIUM 0.5 MG NEB (SCH) NEB ×4 (04:24→20:49)
[2016-09-02 07:09] LABS: HEMATOCRIT 33.8 % (39.0-51.0); MEAN CELL VOLUME 81.2 FL (80.0-100.0); MEAN CORPUSCULAR HEMOGLOBIN 26.2 PG (27.0-34.0); MEAN CORPUSCULAR HGB CONC 32.2 % (32.0-36.0); PLATELET COUNT 376 TH/MM3 (150-450); RED BLOOD COUNT 4.16 MIL/MM3 (4.50-5.90); RED CELL DISTRIBUTION WIDTH 15.6 % (11.6-17.2); REVIEW FLAG FINAL; WHITE BLOOD COUNT 15.8 TH/MM3 (4.0-11.0)
[2016-09-02 07:15] LABS: APTT (PATIENT) 51.9 SEC (24.3-30.1)
--- NOTE | 2016-09-02 07:58 | PD.CARD.PN ---
Subjective Subjective Remarks denies chest pain (Pepe Fontana) Objective Vital Signs / I&O Vital Signs Date Time Temp Pulse Resp B/P Pulse Ox O2 Delivery O2 Flow Rate FiO2 09/02/16 03:45 96.9 60 20 156/68 94 09/02/16 00:45 97.2 72 18 160/78 92 09/01/16 22:47 94 Nasal Cannula 4.00 09/01/16 20:00 97.0 74 20 129/69 91 09/01/16 16:00 95.5 63 17 128/66 93 09/01/16 12:00 95.2 65 18 136/65 94 09/01/16 09:14 91 Nasal Cannula 4.00 09/01/16 08:00 95.6 62 17 140/68 93 I/O 09/01/16 09/01/16 09/01/16 09/02/16 09/02/16 09/02/16 06:59 14:59 22:59 06:59 14:59 22:59 Intake Total 656 ml 1193 ml 480 ml Output Total 480 ml 1000 ml 400 ml Balance 176 ml 193 ml 80 ml Intake Oral 600 ml 1080 ml 480 ml Other 56 ml 113 ml Output Urine Total 480 ml 1000 ml 400 ml # Bowel Movements 0 2 0 Physical Exam GENERAL: Well-nourished, well-developed patient in no apparent distress. NECK: No JVD. No carotid bruit. CARDIOVASCULAR: Regular rate and rhythm. S1/S2 no murmur, rub, or gallop. RESPIRATORY: No accessory muscle use. Clear to auscultation. Breath sounds equal bilaterally. GASTROINTESTINAL: Abdomen soft, non-tender, nondistended. MUSCULOSKELETAL: Extremities without clubbing, cyanosis, or edema. Laboratory Laboratory Tests Test 09/02/16 06:06 White Blood Count 15.8 TH/MM3 Red Blood Count 4.16 MIL/MM3 Hemoglobin 10.9 GM/DL Hematocrit 33.8 % Mean Corpuscular Volume 81.2 FL Mean Corpuscular Hemoglobin 26.2 PG Mean Corpuscular Hemoglobin 32.2 % Concent Red Cell Distribution Width 15.6 % Platelet Count 376 TH/MM3 Mean Platelet Volume 7.5 FL Activated Partial 51.9 SEC Thromboplast Time (Pepe Fontana) Assessment and Plan Problem List: (1) NSTEMI (non-ST elevated myocardial infarction) (2) CAD (coronary artery disease) (3) History of lung cancer (4) COPD with acute exacerbation (5) Stented coronary artery (6) Abnormal EKG (7) Edema Assessment and Plan HTN - last 8 hour uncontrolled, yet trends from yesterday appear controlled. No change for now. CAD - no chest pain, P2Y12 194 continue Plavix okay to d/c home from a CV standpoint (Pepe Fontana) Assessment and Plan small troponin elevation may be secondary to prior GA last hospitalization still trending down. EKG T wave inversions. asymptomatic. repeat EKG stop BB due to COPD. stop lasix due to Cr. no CHF. stop heparin gtt. add ACEi. monitor Cr. I think he will tolerate it well. add isosorbide. I would monitor one more day due to medication changes. ambulate. (Elvin Farmer MD) Pepe Fontana Sep 02, 2016 07:58 Elvin Farmer MD Sep 02, 2016 09:00
--- NOTE | 2016-09-02 08:21 | MH ---
cc: BARRERA RAZO DATE OF ADMISSION 08/30/2016 DATE OF 1930 CHIEF COMPLAINT Shortness of breath. Travel in the last 30 days none. HISTORY OF PRESENT ILLNESS This is an anxious 85-year-old white male who has been hospitalized and sick since April of 2016. He has been treated for pneumonia twice in the past several months and continues to be short of breath. Currently he is resting in the bed, using accessory muscles and has to take frequent breaks from conversation due to his shortness of breath. The patient also was treated recently for a STEMI and, according to the patient, received three stents a couple of weeks ago. Currently the patient denies any chest pain. Denies any fever, denies headache. Denies nausea, vomiting, diarrhea or constipation. He is positive for cough, nonproductive hacky in nature, and as stated he is extremely anxious over his current condition. He stated during our assessment more than once he cannot understand why he was not feeling better and he continues to be sick and he would like some answers. Initially in the patient's physician office, his O2 saturation was in the 80s. He did show signs of significant shortness of breath there. He was administered three bronchodilator treatments, Solu-Medrol, epi subcu and magnesium. He was sent to the emergency room for further evaluation. In the ER the patient had nebulizer treatments, initially had BiPap and C-PAP ordered as well as O2 at 2 liters to stabilize him. He had blood cultures and multiple other labs drawn. He was given one dose azithromycin IV and Maxipime IV once. Urinalysis was completed along with his other blood work. The patient was also given 40 mg of IV Lasix for his shortness of breath. The patient is a poor historian, forgets very easily his current history but can answer some question appropriately. PAST MEDICAL HISTORY Medical history includes: 1. Depression 2. Anxiety. 3. Cardiovascular disease. 4. Hyperlipidemia. 5. Chest pain. 6. Chronic obstructive pulmonary disease. 7. He is very hard of hearing. 8. Hypertension. 9. He had lung cancer in 2011 with radiation therapy. 10. And hypothyroidism. Most of this information is being gathered from the record due to the patient's anxiety and his shortness of breath. PAST SURGICAL HISTORY 1. Hernia repair. 2. Carotid endarterectomy in 1989. 3. Recent cardiac stents times three. ALLERGIES PRILOSEC. MEDICATIONS Reported: 1. Oxygen at home. 2. Lipitor. 3. Plavix. 4. Aspirin. 5. Metoprolol. 6. Omeprazole. 7. Spiriva inhaler. 8. Levothyroxine. SOCIAL HISTORY The patient is currently , lives at home with his and daughter. He was a former tobacco user and quit approximately 8 years ago. Denies any alcohol or illicit drug use. REVIEW OF SYSTEMS A 12-point review was obtained. Positives noted in the HPI include generalized weakness, anxiety, cough, shortness of breath. Other systems negative or unremarkable for now. PHYSICAL EXAMINATION VITAL SIGNS: Temperature is 98.4, pulse 66, respiratory rate 20-28. Blood pressure 138/66, was 117/59 when first admitted to the emergency room. O2 saturation labile between 91-95% O2 3-4 liters per nasal cannula. GENERAL: Slim, borderline frail white male looks to be his stated age, resting in the bed. He is awake, alert and a fairly poor historian. He does have exertional shortness of breath. HEENT: Atraumatic, normocephalic. Pale mucous membranes. Dry tongue. No exudate from his oral or nasal cavity. NECK: Thin. Supple. CARDIOVASCULAR: S1-S2. Probable soft murmur noted at the lower left sternal border. Trace of edema bilaterally. Pulse is palpable. LUNGS: Essentially clear anteriorly. Posteriorly low volumes. Diminished breath sounds. Using his accessory muscles to breathe. ABDOMEN: Flat. Soft. Nontender. Nondistended. Active bowel sounds. MUSCULOSKELETAL: Moves his extremities with purpose. 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 NEUROLOGICAL: As stated awake, alert. Poor historian but attempting to answer symptom questions appropriately. PSYCHIATRIC: Anxious mood. Questionable insight and judgment. LABORATORY DATA Diagnostic data initially on admission white count was 18.6, now 6. RBC count 4.2, hemoglobin 11.1, hematocrit 34.5, platelet count 379, neutrophil auto count 91, lymphocyte 6.3. PT/INR 1. Chemistry, sodium 143, potassium 4.3, chloride 106, carbon dioxide 27.2, anion gap 10, BUN 31, creatinine 1.54, GFR 43, random glucose 130, calcium 7.9. Positive troponin is noted 0.94, 0.71 and 0.66. BNP 35, 21. Albumin 2.5, total protein 5.9. Urine is yellow, clear, pH 5.5, specific gravity 1.009, protein 30, negative for glucose, ketones, occult blood, nitrites bilirubin, leukocyte esterase. Urobilinogen less than 2, a few mucus, no culture is indicated. Blood gases temperature 98.6, bicarb 21, base excess -2.3, O2 sat 90, pH is 7.45, pCO2 31, pO2 61. The patient had these blood gases drawn when he was on BiPap at 35%. IMAGING The imaging studies show chest x-ray to have no significant changes but he does show acute on chronic lung disease. ASSESSMENT/PLAN Probable OK or non STEMI with elevated troponins, congestive heart failure, COPD exacerbation with dyspnea, hypoxia, possible pneumonia, hypothyroidism, hypertension, anxiety. 1. Our plan is to admit inpatient status. The patient should require a greater than [id number] day stay with multiple consults with cardiology to see, a consult for pulmonology for their expert opinion. 2. IV antibiotics. 3. Aspirin. 4. Plavix. 5. Reconcile his medications. 6. His vital signs will be at least every 4 hours if not more often. 7. Continuous cardiac monitoring. 8. Heart healthy diet. 9. DVT prophylaxis with heparin, Plavix and aspirin. 10. PUD prophylaxis with Protonix. 11. The patient was placed on IV Solu-Medrol. 12. DuoNeb. 13. O2 therapy. Currently the patient is full code, full aggressive care. We will follow and inform the patient of current findings as he has requested. Dictated by: NATHAN Morelos Barrera Razo MD JP/KK /9:03 AM /8:21 AM Patient seen and examined on the day of admission as above. Above-note was not available before to sign Chart was reviewed on day of admission including but not limited to labs radiological data and medications Discussed with RN and NATHAN about plan of care Discussed with patient MTDD
[2016-09-02] MEDS: CLOPIDOGREL 75 MG TAB PO SCH (08:47)
[2016-09-02] MEDS: ASPIRIN EC 81 MG TABEC PO SCH (08:47)
[2016-09-02] MEDS: AZITHROMYCIN 250 MG TAB PO SCH (08:48)
[2016-09-02] MEDS: METOPROLOL TARTRATE 50 MG TAB PO SCH (08:48)
[2016-09-02] MEDS: FUROSEMIDE 40 MG TAB PO SCH (08:48)
[2016-09-02] MEDS: predniSONE 20 MG TAB PO SCH ×2 (08:48→23:16)
[2016-09-02] MEDS: SODIUM CHLORIDE 0.9% FLUSH 10 ML FLUSH IV FLUSH SCH ×2 (08:51→23:16)
[2016-09-02] MEDS: TIOTROPIUM BROMIDE 18 MCG INH INH SCH (08:51)
--- NOTE | 2016-09-02 10:10 | PD.PN.STU ---
Subjective Remarks Feels well, on NC O2 4L, sat 91. No cough, no wheeze. Objective Vitals Vital Signs Date Time Temp Pulse Resp B/P Pulse Ox O2 Delivery O2 Flow Rate FiO2 09/02/16 07:57 95.9 64 17 161/71 91 09/02/16 03:45 96.9 60 20 156/68 94 09/02/16 00:45 97.2 72 18 160/78 92 09/01/16 22:47 94 Nasal Cannula 4.00 09/01/16 20:00 97.0 74 20 129/69 91 09/01/16 16:00 95.5 63 17 128/66 93 09/01/16 12:00 95.2 65 18 136/65 94 I/O 09/01/16 09/01/16 09/01/16 09/02/16 09/02/16 09/02/16 07:00 15:00 23:00 07:00 15:00 23:00 Intake Total 656 ml 1193 ml 532 ml Output Total 480 ml 1000 ml 400 ml Balance 176 ml 193 ml 132 ml Intake Oral 600 ml 1080 ml 480 ml IV Total 52 ml Other 56 ml 113 ml Output Urine Total 480 ml 1000 ml 400 ml # Bowel Movements 0 2 0 Result Diagram: 09/02/16 0606 09/01/16 0750 Objective Remarks GENERAL: This elderly, thinly-built, white male is alert . Pale. HEENT: Head normocephalic. Pupils are reactive and equal. Tongue moist. Throat is clear. Ears - no inflammation. NECK: Supple. No bruits. No lymphadenopathy or thyromegaly. CHEST: Equalmovements with an increased AP diameter. prolonged expiratory, no wheezes. HEART: The heart sounds regular, S1 and S2, with no definite murmur. ABDOMEN: Abdomen is soft, protuberant without masses, organomegaly or tenderness. EXTREMITIES: Edema 1+ with diminished pulses. SKIN: No lesions. A/P Assessment and Plan Assessment and Plan Assessment and Plan IMPRESSION 1. COPD with acute exacerbation. 2. Recent STEMI status post coronary artery stenting. 3. Probable mild CHF. 4. Emphysema. Plan : 1. Wean O2 to 3 L. 2. Continue Prednisone 20mg BID and taper 3. Cont Rocephin. 4. Cont Anticoagulants. 6. [address] gutierrez. 7. D/C in am Alfreda Roca M3 Sep 02, 2016 10:10 Laurence Siegel MD October 10, 2016 18:23
--- NOTE | 2016-09-02 16:01 | HHI.FF ---
Face to Face Verification Diagnosis: (1) COPD with acute exacerbation (2) NSTEMI (non-ST elevated myocardial infarction) Physical Therapy Order: Evaluate and Treat Home Health Nursing Order: Medical education Signs/symptoms of disease process Oxygen administration education Nursing assessment with vital signs I have seen patient Kiet Ro Reid on 09/02/16. My clinical findings support the need for the requested home health care services because: Patient has SOB Deconditioned w/ increased weakness Limited ability to care for self Need for psychosocial assistance I certify that my clinical findings support that this patient is homebound because: Hx COPD- exertion dyspnea/weakness Need for psychosocial assistance Poor cardiac reserve Chetna Rios Sep 02, 2016 16:01
--- NOTE | 2016-09-02 16:11 | HHI.PR ---
Subjective Subjective Remarks No chest pain No shortness of breath Eating well No nausea, no vomiting No acute changes overnight Review of Systems Constitutional Constitutional Remarks 12 point review of systems completed, negative except as noted above Vitals/Results Intake & Output 09/01/16 09/01/16 09/02/16 15:00 23:00 07:00 Intake Total 1193 ml 532 ml Output Total 1000 ml 400 ml Balance 193 ml 132 ml Intake Oral 1080 ml 480 ml IV Total 52 ml Other 113 ml Output Urine Total 1000 ml 400 ml # Bowel Movements 2 0 Vital Signs Vital Signs Date Time Temp Pulse Resp B/P Pulse Ox O2 Delivery O2 Flow Rate FiO2 09/02/16 11:41 95.9 77 17 131/60 91 09/02/16 10:25 93 Nasal Cannula 4.00 09/02/16 07:57 95.9 64 17 161/71 91 09/02/16 03:45 96.9 60 20 156/68 94 09/02/16 00:45 97.2 72 18 160/78 92 09/01/16 22:47 94 Nasal Cannula 4.00 09/01/16 20:00 97.0 74 20 129/69 91 CBC/BMP: 09/02/16 0606 09/01/16 0750 Lab Results Laboratory Tests Test 09/02/16 06:06 White Blood Count 15.8 TH/MM3 Red Blood Count 4.16 MIL/MM3 Hemoglobin 10.9 GM/DL Hematocrit 33.8 % Mean Corpuscular Volume 81.2 FL Mean Corpuscular Hemoglobin 26.2 PG Mean Corpuscular Hemoglobin 32.2 % Concent Red Cell Distribution Width 15.6 % Platelet Count 376 TH/MM3 Mean Platelet Volume 7.5 FL Activated Partial 51.9 SEC Thromboplast Time Physical Exam General General Appearance: Well Developed, No Acute Distress Eyes Eye Exam: Pupils Equal, Pupils Reactive Ears & Nose Ears & Nose Exam: Nasal Mucosa [place] Throat Throat Exam: Oral Mucosa [place] & Moist Neck Neck Exam: Neck Supple, Trachea Midline Pulmonary Resp Exam: Decreased Bases Cardiology CV Exam: Regular Gastrointestinal/Abdomen GI Exam: Soft, Non-Tender, Bowel Sounds Present, Non-Distended Musculoskeletal MS Exam: Joints Intact Integumentary Skin Exam: Warm, Dry Extremeties Extremities Exam: Pedal Pulses Palpable, Trace Edema Neurologic Neuro Exam: Alert, Awake, Oriented, Speech Clear, Moving All Extremities, No Focal Deficits Psychiatric Psych Exam: Appropriate Responses VTE Prophylaxis VTE Prophylaxis Device: SCDs Assessment/Plan Problem List: (1) NSTEMI (non-ST elevated myocardial infarction) (2) COPD with acute exacerbation (3) CAD (coronary artery disease) (4) History of lung cancer (5) Congestive heart failure (CHF) Assessment/Plan Continue with oxygen to keep sats greater than 92 By mouth steroids DuoNeb's as needed Continue empiric antibiotic Appreciate pulmonary input Appreciate cardiology input, elevated troponin secondary to recent non-STEMI. Discontinued heparin Continue with medical management, Imdur added Unable to have beta blockers due to COPD Echo done, EF 55% started on JONI per card. Lasix stopped due to elevated creatinine Acute on chronic CKD, slightly improved monitor renal function avoid nephrotoxic agents for dc planning, [facility] SCDs for DVT prophylaxis Plan to observe overnight, if stable, plan to dc in am D/W RN D/W Dr. Razo D/W pt. This patient was seen by myself and Dr. Razo, this note is written on his behalf. Problem Qualifiers (1) CAD (coronary artery disease): Qualified Code: I25.118 - Coronary artery disease of [place] artery of [place] heart with stable angina pectoris (2) Congestive heart failure (CHF): Qualified Code: I50.9 - Acute congestive heart failure, unspecified congestive heart failure type Chetna Rios Sep 02, 2016 16:11
--- NOTE | 2016-09-02 17:23 | EKG ---
Date Performed: 09/02/2016 Time Performed: 10:27:48 PTAGE: 85 years EKG: Sinus rhythm WITH SHORT MO INTERVAL MARKED LEFT AXIS DEVIATION INCOMPLETE RIGHT BUNDLE BRANCH BLOCK ABNORMAL QRS- T ANGLE Nonspecific T wave changes have somewhat resolved. ClinicaL corrolation is suggested. ABNORMA L ECG PREVIOUS TRACING : 08/30/2016 16.09 DOCTOR: Michael Sorenson Interpretating Date/Time 09/02/2016 17:22:31
[2016-09-02] MEDS: LISINOPRIL 20 MG TAB PO SCH (18:23)
[2016-09-02] MEDS: ISOSORBIDE MONONITRATE 30 MG TAB PO SCH (18:23)
--- NOTE | 2016-09-02 19:36 | HHI.PR ---
Subjective Remarks Feels better. On O2 at 3L. No chest pain. Cough is gone . No new cardiac issues. Objective Vital Signs Date Time Temp Pulse Resp B/P Pulse Ox O2 Delivery O2 Flow Rate FiO2 09/02/16 15:44 96.0 69 17 137/70 92 09/02/16 11:41 95.9 77 17 131/60 91 09/02/16 10:25 93 Nasal Cannula 4.00 09/02/16 07:57 95.9 64 17 161/71 91 09/02/16 03:45 96.9 60 20 156/68 94 09/02/16 00:45 97.2 72 18 160/78 92 09/01/16 22:47 94 Nasal Cannula 4.00 09/01/16 20:00 97.0 74 20 129/69 91 I/O 09/01/16 09/01/16 09/01/16 09/02/16 09/02/16 09/02/16 07:00 15:00 23:00 07:00 15:00 23:00 Intake Total 656 ml 1193 ml 532 ml 960 ml Output Total 480 ml 1000 ml 400 ml Balance 176 ml 193 ml 132 ml 960 ml Intake Oral 600 ml 1080 ml 480 ml 960 ml IV Total 52 ml Other 56 ml 113 ml Output Urine Total 480 ml 1000 ml 400 ml # Voids 4 # Bowel Movements 0 2 0 0 Result Diagram: 09/02/16 0606 09/01/16 0750 Objective Remarks GENERAL: This elderly, thinly-built, white male is alert . Pale. HEENT: Head normocephalic. Pupils are reactive and equal. Tongue moist. Throat is clear. Ears - no inflammation. NECK: Supple. No bruits. No lymphadenopathy or thyromegaly. CHEST: Equal movements with an increased AP diameter with few wheezes over both lung anderson. Occ crackles. HEART: The heart sounds regular, S1 and S2, with no definite murmur. ABDOMEN: Abdomen is soft, protuberant without masses, organomegaly or tenderness. EXTREMITIES: Edema 1+ with diminished pulses. Reflexes 1+ with no gross motor deficits. SKIN: No lesions. Assessment and Plan Assessment and Plan IMPRESSION 1. COPD with acute exacerbation. 2. Recent STEMI status post coronary artery stenting. 3. Probable mild CHF. 4. Emphysema. Plan : 1. Wean o2 to 3 L. 2. Up with help 3. D/C Bert and Jorge. 4. Cont Anticoagulants. 5. prednisone 30 mg daily 6. Labs in am . 7. Home if OK with Cardiology Laurence Siegel MD Sep 02, 2016 19:36
[2016-09-02] MEDS: CEFUROXIME AXETIL 500 MG TAB PO SCH (23:15)
[2016-09-02] MEDS: ATORVASTATIN 40 MG TAB PO SCH (23:16)
[2016-09-03 00:10] VITALS: BP 142/70; PULSE 70; RESP 16; TEMP 97; O2SAT 92
[2016-09-03] MEDS: RESP: ALBUTEROL 2.5 MG/IPRATROPIUM 0.5 MG NEB (SCH) NEB ×2 (04:29→10:37)
[2016-09-03 04:31] VITALS: O2SAT 94
[2016-09-03] MEDS: LEVOTHYROXINE SODIUM 75 MCG TAB PO SCH (06:56)
[2016-09-03] MEDS: ISOSORBIDE MONONITRATE 30 MG TAB PO SCH (06:56)
[2016-09-03] MEDS: PANTOPRAZOLE SOD 20 MG DELAYED RELEASE TAB PO SCH (06:56)
--- NOTE | 2016-09-03 07:58 | PD.CARD.PN ---
Subjective Subjective Remarks feels well (Pepe Fontana) Objective Vital Signs / I&O Vital Signs Date Time Temp Pulse Resp B/P Pulse Ox O2 Delivery O2 Flow Rate FiO2 09/03/16 04:31 94 Nasal Cannula 4.00 09/03/16 00:10 97.0 70 16 142/70 92 09/02/16 20:49 96 Nasal Cannula 3.00 09/02/16 20:40 96.9 71 16 135/65 92 09/02/16 15:44 96.0 69 17 137/70 92 09/02/16 11:41 95.9 77 17 131/60 91 09/02/16 10:25 93 Nasal Cannula 4.00 09/02/16 07:57 95.9 64 17 161/71 91 I/O 09/02/16 09/02/16 09/02/16 09/03/16 09/03/16 09/03/16 07:00 15:00 23:00 07:00 15:00 23:00 Intake Total 532 ml 960 ml 120 ml 240 ml Output Total 400 ml 175 ml 575 ml Balance 132 ml 960 ml -55 ml -335 ml Intake Oral 480 ml 960 ml 120 ml 240 ml IV Total 52 ml Output Urine Total 400 ml 175 ml 575 ml # Voids 4 # Bowel Movements 0 0 0 0 Physical Exam GENERAL: Well-nourished, well-developed patient in no apparent distress. NECK: No JVD. No carotid bruit. CARDIOVASCULAR: Regular rate and rhythm. S1/S2 no murmur, rub, or gallop. RESPIRATORY: No accessory muscle use. Clear to auscultation. Breath sounds equal bilaterally. GASTROINTESTINAL: Abdomen soft, non-tender, nondistended. MUSCULOSKELETAL: Extremities without clubbing, cyanosis, or edema. (Pepe Fontana) Assessment and Plan Problem List: (1) NSTEMI (non-ST elevated myocardial infarction) (2) CAD (coronary artery disease) (3) History of lung cancer (4) COPD with acute exacerbation (5) Stented coronary artery (6) Abnormal EKG (7) Edema Assessment and Plan HTN - good control on JONI-I, No BMP this am, I have ordered one CAD - no chest pain, P2Y12 194 continue Plavix okay to d/c home from a CV standpoint (Pepe Fontana) Assessment and Plan SBP improved. BB discontinued due to COPD follow Cr added isosorbide Ok to DC home (Elvin Farmer MD) Problem Qualifiers (1) CAD (coronary artery disease): Qualified Code: I25.118 - Coronary artery disease of [place] artery of [place] heart with stable angina pectoris Pepe Fontana Sep 03, 2016 07:58 Elvin Farmer MD Sep 03, 2016 08:31
[2016-09-03 08:00] VITALS: BP 132/64; PULSE 69; RESP 18; TEMP 96.5; O2SAT 94
[2016-09-03] MEDS: AZITHROMYCIN 250 MG TAB PO SCH (08:12)
[2016-09-03] MEDS: ASPIRIN EC 81 MG TABEC PO SCH (08:13)
[2016-09-03] MEDS: LISINOPRIL 20 MG TAB PO SCH (08:13)
[2016-09-03] MEDS: predniSONE 20 MG TAB PO SCH (08:13)
[2016-09-03] MEDS: CLOPIDOGREL 75 MG TAB PO SCH (08:13)
[2016-09-03] MEDS: CEFUROXIME AXETIL 500 MG TAB PO SCH (08:21)
[2016-09-03] MEDS: SODIUM CHLORIDE 0.9% FLUSH 10 ML FLUSH IV FLUSH SCH (09:00)
[2016-09-03 10:41] LABS: BICARBONATE 28.1 MEQ/L (21.0-32.0); POTASSIUM 3.9 MEQ/L (3.5-5.1)
[2016-09-03] MEDS ORDERED: CEFT500T3 PO (13:05)
[2016-09-03] MEDS ORDERED: LISI-515 PO (13:05)
[2016-09-03] MEDS ORDERED: ISOS30TA3 PO (13:05)
[2016-09-03] MEDS ORDERED: PRED20 PO (13:05)
--- NOTE | 2016-09-03 13:06 | HHI.DCPOC ---
Discharge Care Plan Diagnosis: (1) NSTEMI (non-ST elevated myocardial infarction) (2) COPD with acute exacerbation (3) Congestive heart failure (CHF) (4) History of lung cancer (5) Pneumonia (6) CAD (coronary artery disease) Your Health Problems Are: Chest Pain Cough Shortness of Breath Goals to Promote Your Health * To prevent worsening of your condition and complications * To maintain your health at the optimal level Directions to Meet Your Goals Take your medications as prescribed Follow your dietary instruction Follow activity as directed Keep your appointments as scheduled Take your immunizations and boosters as scheduled If your symptoms worsen call your PCP, if no PCP go to Urgent Care Center or Emergency Room Smoking is Dangerous to Your Health. Avoid second hand smoke Call the 24-hour hour crisis hotline for domestic abuse at Chetna Rios [facility] Sep 03, 2016 13:06
--- NOTE | 2016-09-03 13:09 | HHI.DS ---
Discharge Summary Admission Date Aug 30, 2016 at 18:07 Discharge Date: Sep 03, 2016 Admitting Diagnosis copd exacerbation (1) NSTEMI (non-ST elevated myocardial infarction) (2) History of lung cancer (3) Congestive heart failure (CHF) (4) COPD with acute exacerbation (5) Pneumonia (6) Stented coronary artery (7) CAD (coronary artery disease) CBC/BMP: 09/02/16 0606 09/03/16 0930 Significant Findings Laboratory Tests Test 08/31/16 09/01/16 09/01/16 09/02/16 17:37 00:36 07:50 06:06 Activated Partial 40.5 SEC 39.3 SEC 40.8 SEC 51.9 SEC Thromboplast Time (24.3-30.1) (24.3-30.1) (24.3-30.1) (24.3-30.1) Blood Urea Nitrogen 36 MG/DL (7-18) Creatinine 1.31 MG/DL (0.60-1.30) Estimat Glomerular Filtration 52 ML/MIN (>89) Rate Random Glucose 107 MG/DL (74-106) Calcium Level 7.9 MG/DL (8.5-10.1) White Blood Count 15.8 TH/MM3 (4.0-11.0) Red Blood Count 4.16 MIL/MM3 (4.50-5.90) Hemoglobin 10.9 GM/DL (13.0-17.0) Hematocrit 33.8 % (39.0-51.0) Mean Corpuscular Hemoglobin 26.2 PG (27.0-34.0) Test 09/03/16 09:30 Blood Urea Nitrogen 37 MG/DL (7-18) Estimat Glomerular Filtration 58 ML/MIN (>89) Rate Calcium Level 8.1 MG/DL (8.5-10.1) Imaging Last Impressions Chest X-Ray 08/31/16 0600 Signed Impressions: Service Date/Time: Wednesday, August 31, 2016 07:35 - CONCLUSION: Stable appearance of acute on chronic lung disease. Mary Lundberg MD Hospital Course This is an frail 85-year-old white male who has been hospitalized frequently and feeling poorly since April of 2016. He has been treated for pneumonia twice in the past several months and continues to be short of breath. Has hx of COPD, oxygen dependent. The patient also was treated recently for a STEMI and, according to the patient , received three stents a couple of weeks ago. He denied any chest pain, no fever, no headaches, no nausea, no vomiting. He had a cough, it was hacking. He was very anxious. She was sent from primary care physician's office as he was noted hypoxic with increasing shortness of breath. He didn't receive breathing treatments. In addition to Solu-Medrol and subcutaneous epinephrine. He was sent to the emergency room for further evaluation. In the ER the patient had nebulizer treatments, initially had BiPap and C-PAP ordered as well as O2 at 2 liters to stabilize him. He had blood cultures and multiple other labs drawn. He was given one dose azithromycin IV and Maxipime IV once.\ The patient was also given 40 mg of IV Lasix for his shortness of breath. Patient was evaluated in emergency room. LABORATORY DATA Diagnostic data initially on admission white count was 18.6, now 6. RBC count 4.2, hemoglobin 11.1, hematocrit 34.5, platelet count 379, neutrophil auto count 91, lymphocyte 6.3. PT/INR 1. Chemistry, sodium 143, potassium 4.3, chloride 106, carbon dioxide 27.2, anion gap 10, BUN 31, creatinine 1.54, GFR 43, random glucose 130, calcium 7.9. Positive troponin is noted 0.94, 0.71 and 0.66. BNP 3521. Albumin 2.5, total protein 5.9. Urine is yellow, clear, pH 5.5, specific gravity 1.009, protein 30, negative for glucose, ketones, occult blood, nitrites bilirubin, leukocyte esterase. Urobilinogen less than 2, a few mucus, no culture is indicated. Blood gases temperature 98.6, bicarb 21, base excess -2.3, O2 sat 90, pH is 7.45, pCO2 31, pO2 61. The patient had these blood gases drawn when he was on BiPap at 35%. IMAGING The imaging studies show chest x-ray to have no significant changes but he does show acute on chronic lung disease. Patient was admitted for: (1) NSTEMI (non-ST elevated myocardial infarction) (2) COPD with acute exacerbation (3) CAD (coronary artery disease) (4) History of lung cancer (5) Congestive heart failure (CHF) (6) Hx lung cancer (7) Hx recent NSTEMI with CAD and stents During the course of the hospitalization, the following took place: Patient was admitted, consultations were put in place for pulmonology and cardiology Patient was continued on cardiac medications. Serial cardiac enzymes were completed Patient was continued on oxygen, DuoNeb's, empiric antibiotics, and steroids. Home medications were resumed. Cardiology evaluated patient, troponin was thought to be elevated due to recent non-STEMI. Initially was put on heparin which was later discontinued Initially patient was thought to have some mild CHF, Lasix and potassium replacement were started. Echo ordered. No further interventions were recommended by cardiology, he was recommended to continue with medical management. Continued on Plavix Diuretics were discontinued as creatinine was noted elevated Imdur was added by cardiology Beta blockers were discontinued because of his COPD and respiratory distress. Echo was done, EF 60%. Started on JONI per card. Patient was monitored closely, tolerated medication changes well. Patient was cleared for discharge by cardiology Was noted in Acute on chronic CKD, it did improve BMP was monitored a avoided nephrotoxic agents Lasix was discontinued Patient continued to make urine Home medications were resumed He was put on appropriate DVT prophylaxis Case management was consulted to resume home health care Patient's condition improved, he was less short of breath. Patient does have chronic shortness of breath from COPD however his symptoms improved. He was continued on oxygen and DuoNeb's Physical therapy was ordered to assist patient with mobility Patient was discharge in stable condition to home with home health care Instructed to: F/U Dr. Farmer, Dr. Siegel 2 weeks Diet-heart healthy Activity- as tolerated Pt Condition on Discharge: Stable Discharge Disposition: Disch w/ Home Health Serv Discharge Instructions DIET: Follow Instructions for: Heart Healthy Diet Activities you can perform: Weight Bearing as Mary Follow up Referrals: Cardiology - [address] FARMER PCP Follow-up Pulmonology - 2 Weeks with Laurence Siegel MD New Medications: Cefuroxime (Ceftin) 500 Mg Tab 500 MG PO Q12HR Infection #10 Ref 0 TAB Isosorbide Mononitrate ER (Isosorbide Mononitrate ER) 30 Mg Shaji 30 MG PO DAILY@07 CORONARY ARTERY DISEASE #30 Ref 1 TAB Lisinopril (Lisinopril) 20 Mg Tab 20 MG PO DAILY Blood Pressure Management #30 Ref 1 TAB Prednisone (Prednisone) 20 Mg Tab 20 MG PO BID 20 MG ORALLY X 2 DAYS, THEN 20 MG ORALLY X 4 DAYS, THEN 10 MG ORALLY X 4 DAYS, THEN DISCONTINUE Broncospasm #10 Ref 0 TAB Continued Medications: Aspirin DR (Aspirin EC) 81 Mg Tabdr 81 MG PO DAILY blood thinner #30 TAB Atorvastatin (Lipitor) 40 Mg Tab 40 MG PO HS cholesterol #30 TAB Clopidogrel (Plavix) 75 Mg Tab 75 MG PO DAILY stent #30 TAB Levothyroxine (Levothyroxine) 75 Mcg Tab 75 MCG PO DAILY Thyroid #30 Ref 0 TAB Omeprazole (Omeprazole) 20 Mg Tab 20 MG PO DAILY #30 Ref 0 TAB Tiotropium Inh (Spiriva Handihaler) 18 Mcg Cap 18 MCG INH DAILY 1 capsule = 18 mcg COPD #30 Ref 0 CAP Discontinued Medications: Metoprolol Tartrate (Metoprolol Tartrate) 50 Mg Tab 50 MG PO BID #60 Ref 0 TAB Chetna Rios Sep 03, 2016 13:09
--- NOTE | 2016-09-03 13:12 | HHI.PR ---
Subjective Subjective Remarks sitting up in chair, tired today, has been walking more chronically SBO no cp no fever no acute changes overnight Review of Systems Constitutional Constitutional Remarks 12 point review of systems completed, negative except as noted above Vitals/Results Intake & Output 09/02/16 09/02/16 09/03/16 15:00 23:00 07:00 Intake Total 960 ml 120 ml 240 ml Output Total 175 ml 575 ml Balance 960 ml -55 ml -335 ml Intake Oral 960 ml 120 ml 240 ml Output Urine Total 175 ml 575 ml # Voids 4 # Bowel Movements 0 0 0 Vital Signs Vital Signs Date Time Temp Pulse Resp B/P Pulse Ox O2 Delivery O2 Flow Rate FiO2 09/03/16 08:00 96.5 69 18 132/64 94 09/03/16 04:31 94 Nasal Cannula 4.00 09/03/16 00:10 97.0 70 16 142/70 92 09/02/16 20:49 96 Nasal Cannula 3.00 09/02/16 20:40 96.9 71 16 135/65 92 09/02/16 15:44 96.0 69 17 137/70 92 CBC/BMP: 09/02/16 0606 09/03/16 0930 Lab Results Laboratory Tests Test 09/03/16 09:30 Sodium Level 140 MEQ/L Potassium Level 3.9 MEQ/L Chloride Level 104 MEQ/L Carbon Dioxide Level 28.1 MEQ/L Anion Gap 8 MEQ/L Blood Urea Nitrogen 37 MG/DL Creatinine 1.20 MG/DL Estimat Glomerular Filtration 58 ML/MIN Rate Random Glucose 93 MG/DL Calcium Level 8.1 MG/DL Physical Exam General General Appearance: Well Developed, No Acute Distress Eyes Eye Exam: Pupils Equal, Pupils Reactive Ears & Nose Ears & Nose Exam: Nasal Mucosa [place] Throat Throat Exam: Oral Mucosa [place] & Moist Neck Neck Exam: Neck Supple, Trachea Midline Pulmonary Resp Exam: Decreased Bases Resp Remarks exp. wheezes Cardiology CV Exam: Regular Gastrointestinal/Abdomen GI Exam: Soft, Non-Tender, Bowel Sounds Present, Non-Distended Musculoskeletal MS Exam: Joints Intact Integumentary Skin Exam: Warm, Dry Extremeties Extremities Exam: Pedal Pulses Palpable, Trace Edema Neurologic Neuro Exam: Alert, Awake, Oriented, Speech Clear, Moving All Extremities, No Focal Deficits Psychiatric Psych Exam: Appropriate Responses VTE Prophylaxis VTE Prophylaxis Device: SCDs Assessment/Plan Problem List: (1) NSTEMI (non-ST elevated myocardial infarction) (2) COPD with acute exacerbation (3) CAD (coronary artery disease) (4) History of lung cancer (5) Congestive heart failure (CHF) Assessment/Plan Continue with oxygen to keep sats greater than 92 By mouth steroids DuoNeb's as needed Continue empiric antibiotic Appreciate pulmonary input Appreciate cardiology input, elevated troponin secondary to recent non-STEMI. Discontinued heparin Continue with medical management, Imdur added Unable to have beta blockers due to COPD Echo done, EF 55% continue harish, imdur, no BB and Lasix due to COPD and renal insuf. respectively cleared for discharge Acute on chronic CKD, slightly improved monitor renal function avoid nephrotoxic agents CM for dc planning, C to be resumed SCDs for DVT prophylaxis Discharge home with HHC F/U Dr. Farmer, Dr. Siegel 2 weeks Diet-heart healthy Activity- as tolerated D/W RN D/W Dr. Razo D/W pt. D/W CM This patient was seen by myself and Dr. Razo, this note is written on his behalf. Discharge Minutes: 45 Problem Qualifiers (1) CAD (coronary artery disease): Qualified Code: I25.118 - Coronary artery disease of [place] artery of [place] heart with stable angina pectoris (2) Congestive heart failure (CHF): Qualified Code: I50.9 - Acute congestive heart failure, unspecified congestive heart failure type Chetna Rios Sep 03, 2016 13:12
== END 2016-09-03 14:28 | disposition home health service (06) | DRG 190 ==
LOC: NEPC 15:38 → NEDA 18:07 → NEDH 23:31 → N06B 08-31 14:06
PROVIDERS: ADMIT Specialist; ATTEND Specialist
PROC: 5A09357 Assistance with Respiratory Ventilation, Less than 24 Consecutive Hours, Continuous Positive Airway Pressure (ICD-10-PCS; principal; 2016-08-30)
DX: J44.0 Chronic obstructive pulmonary disease with (acute) lower respiratory infection (principal); J18.9 Pneumonia, unspecified organism; I21.4 Non-ST elevation (NSTEMI) myocardial infarction; N17.9 Acute kidney failure, unspecified; J44.1 Chronic obstructive pulmonary disease with (acute) exacerbation; Z99.81 Dependence on supplemental oxygen; D63.8 Anemia in other chronic diseases classified elsewhere; Z85.118 Personal history of other malignant neoplasm of bronchus and lung; I25.118 Atherosclerotic heart disease of native coronary artery with other forms of angina pectoris; Z95.5 Presence of coronary angioplasty implant and graft; Z87.891 Personal history of nicotine dependence; E03.9 Hypothyroidism, unspecified; Z85.46 Personal history of malignant neoplasm of prostate; I12.9 Hypertensive chronic kidney disease with stage 1 through stage 4 chronic kidney disease, or unspecified chronic kidney disease; N18.9 Chronic kidney disease, unspecified; H91.90 Unspecified hearing loss, unspecified ear; Z79.82 Long term (current) use of aspirin
CPT/HCPCS: 36600; 71010; 71020; 76937; 80048; 80053; 81001; 82550; 82805; 83880; 84484; 85025; 85027; 85576; 85610; 85730; 87040; 87804; 93005; 93306; 94002; 94640; 94664; 96374; J0456; J0692; J0696; J1644; J1940; J2920; J7050; J7512; J7613; P9612

== ENCOUNTER 2016-09-14 09:27 | Emergency (ER) | payer MEDICARE ==
[2016-09-14] VITALS (7 sets, daily range): BP systolic 67–140; BP diastolic 45–56; PULSE 100–122; RESP 22–24; TEMP 97.6; O2SAT 92–100
[~2016-09-14 09:27] MED LIST changes: -CALC500C16 PO; +ISOS30TA3 PO; +LISI-515 PO; -METO25TA3 PO; +OMEP20TA PO; +OXYGENTANK NAS.CANULA; -SYMB160A INH
--- NOTE | 2016-09-14 09:50 | RADHPO ---
EXAM DATE/TIME: 09/14/2016 09:40 [place] COMPARISON: CHEST PA & LAT, August 31, 2016, 7:35. CHEST SINGLE AP, August 19, 2016, 21:46. CT PULMONARY ANGIOGRA M, July 04, 2016, 12:04. CHEST SINGLE AP, August 30, 2016, 16:16. INDICATIONS : Short of breath MEDICAL HISTORY : None. SURGICAL HISTORY : None. ENCOUNTER: Initial ACUITY: 1 day PAIN SCORE: Non-responsive. LOCATION: Bilateral chest FINDINGS: Single view of the chest again demonstrates cardiomegaly. There is diffuse reticular airspace increas ed density seen predominantly within the lung bases at worsening blunting of the costophrenic angles consistent with increased size of pleural effusions. No evidence of pneumothorax. CONCLUSION: Overall worsening lung exam with increased basilar opacities and blunting of the costophrenic angles consistent with enlarging pleural effusions. Mary Lundberg MD on September 14, 2016 at 9:46 Board Certified Radiologist. This report was verified electronically.
[2016-09-14] MEDS: RESP: ALBUTEROL 2.5 MG/IPRATROPIUM 0.5 MG NEB (SCH) INH ×2 (09:59→10:00)
[2016-09-14] MEDS ORDERED: methylPREDNISolone SOD SUCC 125 MG/2 ML VIAL IVP ONE (10:00)
--- NOTE | 2016-09-14 10:07 | PD ---
HPI Chief Complaint: Respiratory Symptoms Time Seen by Provider: 09:34 Travel History International Travel<30 days: No Contact w/Intl Traveler<30days: No Traveled to known affect area: No History of Present Illness HPI This patient is brought in by his and daughter. He is brought in critically ill. Patient has been steadily failing for some time. He is bedbound and on 4 L of oxygen around the clock. He has end-stage COPD and recently had some cardiac stents placed and has some CHF and lung cancer. He is not treating his lung cancer. He did not arrive with any oxygen. He cannot provide any useful history or review of systems. He is very short of breath. His blood pressure is 65 systolic and we cannot even obtain a saturation. His hands are cold. PFSH Past Medical History Hx Anticoagulant Therapy: Yes Anxiety: No Depression: Yes Cancer: Yes (PROSTATE, LUNG) Cardiovascular Problems: Yes High Cholesterol: Yes Chest Pain: Yes Congestive Heart Failure: Yes COPD: Yes Coronary Artery Disease: No Diabetes: No Diminished Hearing: Yes Endocrine: Yes Gastrointestinal Disorders: No Genitourinary: No Hepatitis: No Hiatal Hernia: No Hypertension: Yes Immune Disorder: No Implanted Vascular Access Dvce: No Musculoskeletal: No Neurologic: No Psychiatric: No Reproductive: No Respiratory: Yes (COPD) Radiation Therapy: Yes Sleep Apnea: No Thyroid Disease: Yes (HYPOTHYROIDISM) Past Surgical History Abdominal Surgery: Yes (HERNIA) Cardiac Surgery: Yes (CAROTID ENDARTER ECTOMY 1989) Ear Surgery: No Endocrine Surgery: No Eye Surgery: No Genitourinary Surgery: No Gynecologic Surgery: No Neurologic Surgery: No Oral Surgery: No Thoracic Surgery: No Other Surgery: Yes Social History Alcohol Use: No Tobacco Use: No (FORMER) Substance Use: No Allergies-Medications (Allergen,Severity, Reaction): Coded Allergies: Prilosec (Verified Adverse Reaction, Intermediate, abdominal pain, 09/14/16) per patient Reported Meds & Prescriptions Reported Meds & Active Scripts Active Ceftin (Cefuroxime Axetil) 500 Mg Tab 500 Mg PO Q12HR Prednisone 20 Mg Tab 20 Mg PO BID 20 MG ORALLY X 2 DAYS, THEN 20 MG ORALLY X 4 DAYS, THEN 10 MG ORALLY X 4 DAYS, THEN DISCONTINUE Isosorbide Mononitrate ER (Isosorbide Mononitrate) 30 Mg Shaji 30 Mg PO DAILY@07 Lisinopril 20 Mg Tab 20 Mg PO DAILY Lipitor (Atorvastatin Calcium) 40 Mg Tab 40 Mg PO HS Plavix (Clopidogrel Bisulfate) 75 Mg Tab 75 Mg PO DAILY Aspirin EC (Aspirin) 81 Mg Tabdr 81 Mg PO DAILY Reported Oxygen tank (Oxygen) 1 Ea Tank 2 JEMAL.CANULA CONTINUOUS Oxygen Concentrator Portable Gaseous 2 L/min via Nasal Cannula Continuous For 99 months Omeprazole 20 Mg Tab 20 Mg PO DAILY Spiriva Handihaler (Tiotropium Inh) 18 Mcg Cap 18 Mcg INH DAILY 1 capsule = 18 mcg Levothyroxine (Levothyroxine Sodium) 75 Mcg Tab 75 Mcg PO DAILY Review of Systems ROS Limitations: Clinical Condition, Altered Mental Status, Poor Historian Physical Exam Narrative GENERAL: Thin elderly short of breath patient in prominent respiratory distress. SKIN: Focused skin assessment reveals no rash and nodules. Skin is Warm and dry. HEAD: Atraumatic. Normocephalic. EYES: Pupils equal and round. No scleral icterus. No injection or drainage. ENT: No nasal bleeding or discharge. Mucous membranes pink and moist. NECK: Trachea midline. No JVD. CARDIOVASCULAR: Regular rate and rhythm. No murmur appreciated. Tachycardic RESPIRATORY: Positive accessory muscle use. Diminished breath sounds throughout and no wheezing or crackles. Breath sounds equal bilaterally. GASTROINTESTINAL: Abdomen soft, non-tender, nondistended. Hepatic and splenic margins not palpable. MUSCULOSKELETAL: No obvious deformities. No clubbing. No cyanosis. Symmetric pitting edema of the feet and ankles and lower legs NEUROLOGICAL: Awake but lethargic. No obvious cranial nerve deficits. Motor grossly within normal limits. Normal speech. PSYCHIATRIC: Appropriate mood and flat affect; insight and judgment reduced . Data Data Last Documented VS Vital Signs Date Time Temp Pulse Resp B/P Pulse Ox O2 Delivery O2 Flow Rate FiO2 09/14/16 11:20 97 Non-Rebreather 11.00 09/14/16 10:46 97.6 122 24 140/56 09/14/16 10:30 50 Orders Chest, Single Ap (09/14/16 ) Iv Access Insert/Monitor (09/14/16 09:48) Complete Blood Count With Diff (09/14/16 09:48) Basic Metabolic Panel (Bmp) (09/14/16 09:48) Resp Bipap / Cpap Non Invas Vt (09/14/16 ) Resp Bipap / Cpap Non Invas Vt (09/14/16 ) Ecg Monitoring (09/14/16 09:51) Oximetry (09/14/16 09:51) Methylprednisolone So Succ Inj (Solumedr (09/14/16 10:00) Albuterol-Ipratropium Neb (Duoneb Neb) (09/14/16 10:00) Labs Laboratory Tests Test 09/14/16 10:15 White Blood Count 12.0 TH/MM3 Red Blood Count 3.15 MIL/MM3 Hemoglobin 8.5 GM/DL Hematocrit 26.7 % Mean Corpuscular Volume 84.9 FL Mean Corpuscular Hemoglobin 27.0 PG Mean Corpuscular Hemoglobin 31.8 % Concent Red Cell Distribution Width 16.8 % Platelet Count 359 TH/MM3 Mean Platelet Volume 7.2 FL Neutrophils (%) (Auto) 71.3 % Lymphocytes (%) (Auto) 22.5 % Monocytes (%) (Auto) 2.8 % Eosinophils (%) (Auto) 2.2 % Basophils (%) (Auto) 1.2 % Neutrophils # (Auto) 8.6 TH/MM3 Lymphocytes # (Auto) 2.7 TH/MM3 Monocytes # (Auto) 0.3 TH/MM3 Eosinophils # (Auto) 0.3 TH/MM3 Basophils # (Auto) 0.1 TH/MM3 CBC Comment DIFF FINAL Differential Comment Sodium Level 145 MEQ/L Potassium Level 5.3 MEQ/L Chloride Level 110 MEQ/L Carbon Dioxide Level 16.9 MEQ/L Anion Gap 18 MEQ/L Blood Urea Nitrogen 34 MG/DL Creatinine 1.80 MG/DL Estimat Glomerular Filtration 36 ML/MIN Rate Random Glucose 91 MG/DL Calcium Level 8.1 MG/DL MDM Medical Decision Making Medical Screen Exam Complete: Yes Emergency Medical Condition: Yes Medical Record Reviewed: Yes Differential Diagnosis Acute respiratory failure, COPD, hypercarbia, failure to thrive Narrative Course I have reviewed the patient's electronic medical record. Patient's been hospitalized multiple times this year. He was just discharged about 10 days ago and I reviewed the discharge summary Had a lengthy discussion with both and daughter at bedside. All agree that the daughter is in charge of making his healthcare decisions. She relates that he has been steadily failing and has poor quality of life. He is bedbound and doesn't do much. This morning he seemed worse and stuporous We discussed CODE STATUS and she desires to make him a DO NOT RESUSCITATE We discussed continued aggressive care versus hospice philosophy and she would like to switch gears from aggressive medical care and obtain hospice consultation. Patient seems to be in agreement with that. He seems tired of all this aggressive medical intervention. While I don't know him well, I personally think this is the best choice for him based on talking to his daughter and . He would like to spend his last time with some dignity and not in intensive care with a bunch of tubes in him. I reviewed his chest x-ray which shows similar but worsening pattern from the most recent one. He has increased bilateral pleural effusions. There is diffuse airspace disease. A lot of this is chronic. I reviewed his EKG which shows sinus tachycardia at 116 Extended cardiac monitoring reveals sinus tachycardia between 110 and 120 IV placed CBC shows minor leukocytosis and anemia with hemoglobin of 8.5 Metabolic profile shows some diffuse abnormalities with some renal insufficiency and decreased bicarbonate I gave him 3 nebulizers emergently and placed him on BiPAP therapy to ease the work of breathing. We rediscussed and reiterated and they are comfortable with his DNR status. They do not want him intubated. I gave him 60 mg IV Solu-Medrol On reassessment he's had improvement After oxygenation his mental status is improved Blood pressure is now 140/85 on BiPAP Saturation is 99% on the BiPAP I reviewed at bedside with the hospice nurse She is going to review at length with daughter and different options I believe the [facility] would be an appropriate option for this patient. They can do BiPAP at the [facility] if they decide to continue that or may just keep him on a nonrebreather now that he is improved if Family does not like the [facility] option then he will be hospitalized This is a very complicated case with a lot of bedside time and multiple rechecks Patient will be transported to the [facility] Critical Care Narrative Aggregate critical care time was 80 minutes. Time to perform other separately billable procedures was not included in the critical care time. My time did not include minutes spent treating any other patients simultaneously or on activities that did not directly contribute to the patient's treatment. The services I provided to this patient were to treat and/or prevent clinically significant deterioration that could result in: Cardiopulmonary arrest, acute respiratory failure, hypoxemic brain injury I provided critical care services requiring my management, as noted below: Chart data review, documentation time, medication orders and management, vital sign assessments/reviewing monitor data, ordering and reviewing lab tests, ordering and interpreting/reviewing x-rays and diagnostic studies, care of the patient and discussion of the patient with the admitting physicians. Diagnosis Primary Impression: Acute respiratory failure with hypoxia Additional Impressions: COPD with acute exacerbation CAD (coronary artery disease) Qualified Code: I25.10 - Coronary artery disease due to calcified coronary lesion History of lung cancer Additional Instructions: Follow-up with hospice physician Disposition: 03 DISCHARGE TO SNF Condition: Stable Gordy Teran MD Sep 14, 2016 10:06
[2016-09-14 10:28] LABS: AUTOMATED NEUTROPHIL # 8.6 TH/MM3 (1.8-7.7); BASOPHIL # 0.1 TH/MM3 (0-0.2); BASOPHIL % 1.2 % (0.0-2.0); EOSINOPHIL # 0.3 TH/MM3 (0-0.4); EOSINOPHIL % 2.2 % (0.0-4.0); HEMATOCRIT 26.7 % (39.0-51.0); HEMO FLAGS DIFF FINAL; LYMPH % 22.5 % (9.0-44.0); LYMPHOCYTE # 2.7 TH/MM3 (1.0-4.8); MEAN CELL VOLUME 84.9 FL (80.0-100.0); MEAN CORPUSCULAR HGB CONC 31.8 % (32.0-36.0); MONO % 2.8 % (0.0-8.0); NEUT % 71.3 % (16.0-70.0); PLATELET COUNT 359 TH/MM3 (150-450); RED BLOOD COUNT 3.15 MIL/MM3 (4.50-5.90); RED CELL DISTRIBUTION WIDTH 16.8 % (11.6-17.2)
[2016-09-14 10:30] LABS: POTASSIUM 5.3 MEQ/L (3.5-5.1)
[2016-09-14 10:33] LABS: BICARBONATE 16.9 MEQ/L (21.0-32.0)
--- NOTE | 2016-09-15 10:21 | EKG ---
Date Performed: 09/14/2016 Time Performed: 09:27:34 PTAGE: 85 years EKG: Sinus tachycardia with borderline 1st degree A-V block. Lead(s) unsuitable for analysis: V1 Left axis deviation RBBB with left anterior fascicular block Abnormal ECG PREVIOUS TRACING : 09/02/2016 10.27 Compared to previous tracing, there is now evidence of a le ft axis deviation with a right bundle branch block. DOCTOR: Ellen Matthews Interpretating Date/Time 09/15/2016 10:20:42
== END 2016-09-14 14:22 | disposition hospice, inpatient (51) ==
LOC: PHED 09:27
DX: J96.01 Acute respiratory failure with hypoxia (principal); J44.1 Chronic obstructive pulmonary disease with (acute) exacerbation; R00.0 Tachycardia, unspecified; D72.829 Elevated white blood cell count, unspecified; I50.9 Heart failure, unspecified; I10 Essential (primary) hypertension; I25.10 Atherosclerotic heart disease of native coronary artery without angina pectoris; E03.9 Hypothyroidism, unspecified; Z85.118 Personal history of other malignant neoplasm of bronchus and lung
CPT/HCPCS: 71010; 80048; 85025; 93005; 94640; 94664; 96374; 99291; 99292; J2930